=== PATIENT | male | born 1960 | race Caucasian/White ===

== ENCOUNTER 2018-03-22 15:19 | Emergency (ER) | payer MEDICARE, MEDICAID ==
[~2018-03-22] VITALS: Ht 188 cm; Wt 88.9 kg
[2018-03-22 15:52] VITALS: BP 160/109
[2018-03-22 16:24] LABS: BASOPHILS % (AUTO) 0.4 % (0-1); EOSINOPHILS # (AUTO) 0.1 X10'3 (0-0.9); EOSINOPHILS % (AUTO) 1.4 % (0-6); HEMOGLOBIN 14.7 g/dl (14.0-17.9); LYMPHOCYTES # (AUTO) 0.8 X10'3 (1.1-4.8); LYMPHOCYTES % (AUTO) 13.6 % (21-51); MEAN CORPUSCULAR HEMOGLOBIN 31.2 PG (27.0-31.0); MEAN CORPUSCULAR HGB CONC 34.2 g/dL (33.0-36.5); MEAN CORPUSCULAR VOLUME 91.2 FL (78-98); MEAN PLATELET VOLUME 6.9 FL (7.4-10.4); MONOCYTES # (AUTO) 0.4 X10'3 (0-0.9); MONOCYTES % (AUTO) 6.6 % (2-12); NEUTROPHILS # (AUTO) 4.8 X10'3 (1.8-7.7); PLATELET COUNT 272 X10'3 (140-440); RED BLOOD COUNT 4.71 X10'6 (4.70-6.10); RED CELL DISTRIBUTION WIDTH 13.7 % (11.5-14.5); WHITE BLOOD COUNT 6.2 X10'3 (4.5-11.0)
[2018-03-22 16:46] LABS: INR 0.9 INR; PARTIAL THROMBOPLASTIN TIME 28 SECONDS (22-32); PROTHROMBIN TIME 9.2 SECONDS (9.0-12.0)
[2018-03-22 16:51] LABS: ALANINE AMINOTRANSFERASE 46 U/L (12-78); ALBUMIN 4.1 G/DL (3.4-5.0); ALBUMIN/GLOBULIN RATIO 1.1 (1.1-1.5); ALKALINE PHOSPHATASE 126 IU/L (46-116); ANION GAP 14 (8-16); ASPARTATE AMINO TRANSFERASE 32 U/L (10-37); BILIRUBIN,TOTAL 0.4 MG/DL (0.1-1.0); BLOOD UREA NITROGEN 16 MG/DL (7-18); BUN/CREATININE RATIO 15.5 (5.4-32.0); CALCIUM 9.5 MG/DL (8.5-10.1); CHLORIDE 101 MMOL/L (99-107); CREATININE 1.03 MG/DL (0.60-1.10); GLUCOSE 63 MG/DL (70-104); POTASSIUM 4.2 MMOL/L (3.5-5.1); SODIUM 141 MMOL/L (135-145); TOTAL PROTEIN 7.7 G/DL (6.4-8.2); eGFR 74 ML/MIN
[2018-03-22] MEDS ORDERED: BENZ-16 PO (17:49)
== END 2018-03-22 18:35 | disposition home or self-care (01) ==
LOC: ER 15:19
DX: R05 Cough (principal); G89.29 Other chronic pain; Z56.0 Unemployment, unspecified; Z88.8 Allergy status to other drugs, medicaments and biological substances
CPT/HCPCS: 36415; 71045; 80053; 84484; 85025; 85610; 85730; 99284

== ENCOUNTER 2018-06-17 11:19 | Emergency (ER) | payer MEDICARE, MEDICAID ==
[~2018-06-17] VITALS: Ht 190.5 cm; Wt 88.6 kg
[2018-06-17 12:30] LABS: BASOPHILS % (AUTO) 0.5 % (0-1); EOSINOPHILS # (AUTO) 0.1 X10'3 (0-0.9); EOSINOPHILS % (AUTO) 2.2 % (0-6); HEMATOCRIT 37.9 % (42.0-52.0); HEMOGLOBIN 12.8 g/dl (14.0-17.9); LYMPHOCYTES # (AUTO) 0.8 X10'3 (1.1-4.8); LYMPHOCYTES % (AUTO) 19.5 % (21-51); MEAN CORPUSCULAR HEMOGLOBIN 30.9 PG (27.0-31.0); MEAN CORPUSCULAR HGB CONC 33.8 g/dL (33.0-36.5); MEAN CORPUSCULAR VOLUME 91.6 FL (78-98); MEAN PLATELET VOLUME 7.3 FL (7.4-10.4); MONOCYTES # (AUTO) 0.3 X10'3 (0-0.9); MONOCYTES % (AUTO) 6.5 % (2-12); NEUTROPHILS # (AUTO) 2.8 X10'3 (1.8-7.7); NEUTROPHILS % (AUTO) 71.3 % (42-75); PLATELET COUNT 257 X10'3 (140-440); RED BLOOD COUNT 4.14 X10'6 (4.70-6.10)
[2018-06-17 12:44] LABS: ALANINE AMINOTRANSFERASE 36 U/L (12-78); ALBUMIN 3.1 G/DL (3.4-5.0); ALBUMIN/GLOBULIN RATIO 1.1 (1.1-1.5); ALKALINE PHOSPHATASE 101 IU/L (46-116); ANION GAP 9 (8-16); ASPARTATE AMINO TRANSFERASE 26 U/L (10-37); BILIRUBIN,TOTAL 0.1 MG/DL (0.1-1.0); BLOOD UREA NITROGEN 11 MG/DL (7-18); BUN/CREATININE RATIO 9.5 (5.4-32.0); CALCIUM 8.6 MG/DL (8.5-10.1); CHLORIDE 105 MMOL/L (99-107); CREATININE 1.16 MG/DL (0.60-1.10); GLUCOSE 249 MG/DL (70-104); POTASSIUM 3.7 MMOL/L (3.5-5.1); SODIUM 140 MMOL/L (135-145); TOTAL CARBON DIOXIDE 25.8 MMOL/L (24-32); eGFR 64 ML/MIN
[2018-06-17 12:54] LABS: PARTIAL THROMBOPLASTIN TIME 27 SECONDS (22-32)
[2018-06-17 13:48] VITALS: BP 129/87
== END 2018-06-17 13:50 | disposition home or self-care (01) ==
LOC: ER 11:20
DX: R07.9 Chest pain, unspecified (principal); G89.29 Other chronic pain; Z88.8 Allergy status to other drugs, medicaments and biological substances; Z56.0 Unemployment, unspecified
CPT/HCPCS: 36415; 71045; 80053; 84484; 85025; 85610; 85730; 93005; 99284

== ENCOUNTER 2018-08-19 05:43 | Emergency (ER) | payer MEDICARE, MEDICAID ==
[~2018-08-19] VITALS: Ht 188 cm; Wt 86.4 kg
[~2018-08-19 05:43] MED LIST: ALBU8.5H8 IH
[2018-08-19] MEDS ORDERED: normal saline 1000ML IV soln IV ONE (06:15)
[2018-08-19] MEDS ORDERED: ipratropium/albuterol 3ml nebule NEB ONE (06:15)
[2018-08-19] MEDS ORDERED: methylPREDNISolone sod succ 125mg/2ml vial IV ONE (06:15)
[2018-08-19 06:48] LABS: BASOPHILS % (AUTO) 0.7 % (0-1); EOSINOPHILS # (AUTO) 0.1 X10'3 (0-0.9); EOSINOPHILS % (AUTO) 1.1 % (0-6); HEMATOCRIT 43.2 % (42.0-52.0); HEMOGLOBIN 14.5 g/dl (14.0-17.9); LYMPHOCYTES # (AUTO) 0.6 X10'3 (1.1-4.8); LYMPHOCYTES % (AUTO) 9.2 % (21-51); MEAN CORPUSCULAR HEMOGLOBIN 31.2 PG (27.0-31.0); MEAN CORPUSCULAR HGB CONC 33.5 g/dL (33.0-36.5); MEAN CORPUSCULAR VOLUME 92.9 FL (78-98); MEAN PLATELET VOLUME 7.2 FL (7.4-10.4); MONOCYTES # (AUTO) 0.3 X10'3 (0-0.9); MONOCYTES % (AUTO) 5.6 % (2-12); NEUTROPHILS % (AUTO) 83.4 % (42-75); PLATELET COUNT 267 X10'3 (140-440); RED BLOOD COUNT 4.65 X10'6 (4.70-6.10); RED CELL DISTRIBUTION WIDTH 13.7 % (11.5-14.5)
[2018-08-19 07:01] LABS: ALANINE AMINOTRANSFERASE 46 U/L (12-78); ALBUMIN 3.4 G/DL (3.4-5.0); ALKALINE PHOSPHATASE 139 IU/L (46-116); ANION GAP 10 (8-16); ASPARTATE AMINO TRANSFERASE 31 U/L (10-37); BILIRUBIN,TOTAL 0.8 MG/DL (0.1-1.0); BLOOD UREA NITROGEN 13 MG/DL (7-18); BUN/CREATININE RATIO 11.2 (5.4-32.0); CALCIUM 8.8 MG/DL (8.5-10.1); CHLORIDE 104 MMOL/L (99-107); CREATININE 1.16 MG/DL (0.60-1.10); GLUCOSE 146 MG/DL (70-104); POTASSIUM 3.8 MMOL/L (3.5-5.1); SODIUM 141 MMOL/L (135-145); TOTAL CARBON DIOXIDE 26.8 MMOL/L (24-32); TOTAL PROTEIN 6.9 G/DL (6.4-8.2); eGFR 64 ML/MIN
[2018-08-19 07:09] LABS: MAGNESIUM 1.8 MG/DL (1.5-2.4)
[2018-08-19 07:10] LABS: TROPONIN I < 0.04 NG/ML (0.0-0.05)
[2018-08-19 07:48] LABS: D-DIMER 0.75 MG/L FEU (0-0.50)
[2018-08-19 07:48] LABS: CLARITY,URINE CLEAR (Clear); COLOR,URINE YELLOW (Yellow); GLUCOSE, URINE NEGATIVE (Neg); KETONES,URINE 15 mg/dl (Neg); LEUKOCYTE ESTERASE ,URINE NEGATIVE (Neg); NITRITES, URINE NEGATIVE (Neg); OCCULT BLOOD,URINE NEGATIVE (Neg); PH,URINE 5.5 (4.8-8.0); PROTEIN,URINE NEGATIVE (Neg); UROBILINOGEN,URINE 0.2 E.U/dL (0.2-1.0)
[2018-08-19 07:51] LABS: UA COLLECTION TYPE CLN CATCH MIDSTREAM
[2018-08-19] MEDS ORDERED: AZIT-63 PO (07:59)
[2018-08-19] MEDS ORDERED: PRED20TA PO (07:59)
[2018-08-19] MEDS ORDERED: ibuprofen tablet 400 MG TABLET PO ONE (08:05)
[2018-08-19 08:22] VITALS: BP 153/101
== END 2018-08-19 08:35 | disposition home or self-care (01) ==
LOC: ER 05:44
DX: J40 Bronchitis, not specified as acute or chronic (principal); G89.29 Other chronic pain; Z87.891 Personal history of nicotine dependence; Z56.0 Unemployment, unspecified; Z88.8 Allergy status to other drugs, medicaments and biological substances; Z79.2 Long term (current) use of antibiotics; Z79.899 Other long term (current) drug therapy
CPT/HCPCS: 36415; 71045; 80053; 81003; 83735; 83880; 84145; 84484; 85025; 85379; 85610; 93005; 94640; 94760; 96374; 99284; J2930; J7030

== ENCOUNTER 2018-08-31 13:06 | Emergency (ER) | payer MEDICARE, MEDICAID ==
[~2018-08-31] VITALS: Ht 188 cm; Wt 87.3 kg
[~2018-08-31 13:06] MED LIST changes: +AZIT-63 PO; +PRED20TA PO
[2018-08-31 13:07] VITALS: BP 102/84
[2018-08-31] MEDS ORDERED: ipratropium/albuterol 3ml nebule NEB ONE (13:15)
[2018-08-31] MEDS ORDERED: PRED20TA PO (13:44)
[2018-08-31] MEDS ORDERED: dexamethasone 4mg tablet PO ONE (13:45)
--- NOTE | 2018-08-31 13:45 | NUR ---
RT IN ROOM ADMINSITERING THE BREATHING TREATENT.WILL CONT TO MONITOR.
== END 2018-08-31 14:01 | disposition home or self-care (01) ==
LOC: ER 13:06
DX: J44.9 Chronic obstructive pulmonary disease, unspecified (principal); G89.29 Other chronic pain; F10.99 Alcohol use, unspecified with unspecified alcohol-induced disorder; Z60.2 Problems related to living alone; Z56.0 Unemployment, unspecified; Z88.8 Allergy status to other drugs, medicaments and biological substances; Z79.899 Other long term (current) drug therapy; Y90.9 Presence of alcohol in blood, level not specified
CPT/HCPCS: 93005; 94640; 94760; 99283; J8540

== ENCOUNTER 2018-09-18 06:59 | Inpatient (IN) | payer MEDICARE, MEDICAID ==
[~2018-09-18] VITALS: Ht 190.5 cm; Wt 85.0 kg
[~2018-09-18 06:59] MED LIST changes: -AZIT-63 PO
[2018-09-18 07:44] LABS: BASOPHILS % (AUTO) 0.2 % (0-1); EOSINOPHILS % (AUTO) 0.5 % (0-6); HEMATOCRIT 39.3 % (42.0-52.0); HEMOGLOBIN 13.4 g/dl (14.0-17.9); LYMPHOCYTES # (AUTO) 0.6 X10'3 (1.1-4.8); LYMPHOCYTES % (AUTO) 7.5 % (21-51); MEAN CORPUSCULAR HEMOGLOBIN 31.3 PG (27.0-31.0); MEAN CORPUSCULAR HGB CONC 34.1 g/dL (33.0-36.5); MEAN CORPUSCULAR VOLUME 91.7 FL (78-98); MONOCYTES # (AUTO) 0.5 X10'3 (0-0.9); NEUTROPHILS # (AUTO) 6.4 X10'3 (1.8-7.7); NEUTROPHILS % (AUTO) 84.8 % (42-75); PLATELET COUNT 225 X10'3 (140-440); RED BLOOD COUNT 4.29 X10'6 (4.70-6.10); RED CELL DISTRIBUTION WIDTH 13.8 % (11.5-14.5); WHITE BLOOD COUNT 7.5 X10'3 (4.5-11.0)
[2018-09-18 08:01] LABS: PARTIAL THROMBOPLASTIN TIME 26 SECONDS (22-32)
[2018-09-18 08:24] LABS: ALANINE AMINOTRANSFERASE 37 U/L (12-78); ALBUMIN 3.2 G/DL (3.4-5.0); ALKALINE PHOSPHATASE 100 IU/L (46-116); ANION GAP 16 (8-16); ASPARTATE AMINO TRANSFERASE 17 U/L (10-37); BILIRUBIN,TOTAL 0.3 MG/DL (0.1-1.0); BLOOD UREA NITROGEN 12 MG/DL (7-18); BUN/CREATININE RATIO 12.8 (5.4-32.0); CALCIUM 8.8 MG/DL (8.5-10.1); CHLORIDE 105 MMOL/L (99-107); CREATININE 0.94 MG/DL (0.60-1.10); GLUCOSE 96 MG/DL (70-104); POTASSIUM 4.2 MMOL/L (3.5-5.1); SODIUM 142 MMOL/L (135-145); TOTAL CARBON DIOXIDE 20.7 MMOL/L (24-32); TOTAL PROTEIN 6.3 G/DL (6.4-8.2); eGFR 82 ML/MIN
[2018-09-18] MEDS ORDERED: iohexol 350MG/ML 100ml bottle IV ONE (08:27)
[2018-09-18] MEDS ORDERED: CefTRIAXone 2gm/D5W 50ml 50 ML IV ONE (11:40)
--- NOTE | 2018-09-18 11:42 | NUR ---
PT AMBULATED TO BR WITH ASST.
[2018-09-18] MEDS ORDERED: diatr meglu/diatrizoate 30ml oral sol.-(3 dose) bottle PO ONE (11:45)
[2018-09-18] MEDS ORDERED: ESOMEPRAZOLE 40 MG VIAL IV ONE (11:45)
--- NOTE | 2018-09-18 12:01 | NUR ---
pt. off to x-ray for esophagram via w/c
[2018-09-18 12:18] LABS: CLARITY,URINE CLEAR (Clear); COLOR,URINE YELLOW (Yellow); GLUCOSE, URINE NEGATIVE (Neg); KETONES,URINE 40 mg/dl (Neg); LEUKOCYTE ESTERASE ,URINE NEGATIVE (Neg); NITRITES, URINE NEGATIVE (Neg); OCCULT BLOOD,URINE NEGATIVE (Neg); PROTEIN,URINE NEGATIVE (Neg); UROBILINOGEN,URINE 0.2 E.U/dL (0.2-1.0)
[2018-09-18 12:20] LABS: UA COLLECTION TYPE CLN CATCH MIDSTREAM
--- NOTE | 2018-09-18 12:25 | NUR ---
PT BACK FROM BR TOLERATED WELL WITHOUT ASST. URINE SENT FOR UA
[2018-09-18] MEDS: pantoprazole 40MG/NS 100ML BAG 100 ML IV SCH ×3 (12:54→21:42)
[2018-09-18] MEDS ORDERED: ondansetron/PF 4mg/2ml inj IV ONE (13:05)
[2018-09-18] MEDS ORDERED: morphine 4 MG/ML inj SYRINge IV ONE (13:05)
[2018-09-18] MEDS ORDERED: normal saline 1000ml 1,000 ML IV ONE (13:10)
[2018-09-18] MEDS ORDERED: magnesium 4gm in 100ml NS 100 ML IV PRN (14:00)
[2018-09-18] MEDS ORDERED: barium sulfate 450ml oral suspension ONE (14:00)
[2018-09-18] MEDS ORDERED: potassium CL 10mEq/100ml bag 100 ML IV PRN ×2 (14:00)
[2018-09-18] MEDS ORDERED: ipratropium/albuterol 3ml nebule NEB PRN (14:00)
[2018-09-18] MEDS ORDERED: magnesium 2GM in 50ml NS 50 ML IV PRN (14:00)
[2018-09-18] MEDS ORDERED: ondansetron/PF 4mg/2ml inj IV PRN (14:00)
[2018-09-18] MEDS: K and/or MAG REPLACEMENT MC SCH (14:00)
[2018-09-18] MEDS ORDERED: bisacodyl 10mg suppository rectal RC PRN (14:00)
[2018-09-18] MEDS ORDERED: acetaminophen 650mg rectal suppository RC PRN (14:00)
[2018-09-18] MEDS ORDERED: potassium Cl 20 mEq SR tablet PO PRN ×2 (14:00)
[2018-09-18] MEDS ORDERED: magnesium Cl slow-release 64mg tablet PO PRN (14:00)
[2018-09-18] MEDS ORDERED: diatrozoate meglu/diatrozoate sod (37% iodine) 120ML oral solution ONE (14:00)
[2018-09-18] MEDS ORDERED: diphenhydrAMINE 50 mg/ml inj IV PRN (14:00)
[2018-09-18 14:40] LABS: HEMOGLOBIN A1C 5.5 % (4.5-6.2)
[2018-09-18] MEDS: piperacillin/tazo 3.375gm/50ml 50 ML IV SCH ×2 (14:57→16:00)
[2018-09-18] MEDS: dextrose 5%-normal saline 1,000 ML IV SCH ×2 (14:57→21:43)
[2018-09-18] MEDS ORDERED: NO HOME MEDS (15:32)
--- NOTE | 2018-09-18 16:30 | NUR ---
Pt arrived from ER. Pt on Protonix and Zosyn gtt. Pt has no complaint. Pt assisted in getting undressed for 2 RN skin check. Pt has visible shaking, but per his report, he does not drink ETOH. Pt pants and shoes placed in the cabinet.
--- NOTE | 2018-09-18 18:30 | NUR ---
Patient in room PCU 3016. I have received report from Art RN and had the opportunity to ask questions and assume patient care.
[2018-09-18 19:00] VITALS: BP 130/92
[2018-09-18] MEDS: morphine 2 MG/ML inj. syringe IV PRN (21:42)
[2018-09-18 23:00] VITALS: BP 128/82
[2018-09-19] VITALS (12 sets, daily range): BP systolic 109–146; BP diastolic 80–90
[2018-09-19] MEDS: pantoprazole 40MG/NS 100ML BAG 100 ML IV SCH ×4 (01:00→16:00)
[2018-09-19] MEDS: dextrose 5%-normal saline 1,000 ML IV SCH ×3 (06:00→22:00)
--- NOTE | 2018-09-19 06:17 | NUR ---
Problems reprioritized. Patient report given, questions answered & plan of care reviewed with Jen RICHEY.
--- NOTE | 2018-09-19 06:33 | NUR ---
Patient in room PCU 3016. I have received report from KAIDEN Hahn and had the opportunity to ask questions and assume patient care.
[2018-09-19 07:03] LABS: BASOPHILS % (AUTO) 0.2 % (0-1); EOSINOPHILS # (AUTO) 0.1 X10'3 (0-0.9); EOSINOPHILS % (AUTO) 2.2 % (0-6); HEMATOCRIT 37.2 % (42.0-52.0); HEMOGLOBIN 12.6 g/dl (14.0-17.9); LYMPHOCYTES # (AUTO) 0.5 X10'3 (1.1-4.8); LYMPHOCYTES % (AUTO) 9.4 % (21-51); MEAN CORPUSCULAR HEMOGLOBIN 31.7 PG (27.0-31.0); MEAN CORPUSCULAR VOLUME 93.4 FL (78-98); MEAN PLATELET VOLUME 7.3 FL (7.4-10.4); MONOCYTES # (AUTO) 0.5 X10'3 (0-0.9); NEUTROPHILS # (AUTO) 4.5 X10'3 (1.8-7.7); NEUTROPHILS % (AUTO) 80.2 % (42-75); PLATELET COUNT 178 X10'3 (140-440); RED BLOOD COUNT 3.98 X10'6 (4.70-6.10); RED CELL DISTRIBUTION WIDTH 13.8 % (11.5-14.5); WHITE BLOOD COUNT 5.7 X10'3 (4.5-11.0)
[2018-09-19 07:14] LABS: ALANINE AMINOTRANSFERASE 28 U/L (12-78); ALBUMIN 2.5 G/DL (3.4-5.0); ALBUMIN/GLOBULIN RATIO 0.9 (1.1-1.5); ALKALINE PHOSPHATASE 87 IU/L (46-116); ANION GAP 8 (8-16); ASPARTATE AMINO TRANSFERASE 13 U/L (10-37); BILIRUBIN,TOTAL 0.6 MG/DL (0.1-1.0); BLOOD UREA NITROGEN 7 MG/DL (7-18); BUN/CREATININE RATIO 6.9 (5.4-32.0); CALCIUM 7.9 MG/DL (8.5-10.1); CHLORIDE 109 MMOL/L (99-107); CHOL/HDL RATIO 1.9 (0.00-4.99); CHOLESTEROL 153 MG/DL (0-200); CREATININE 1.01 MG/DL (0.60-1.10); GLUCOSE 132 MG/DL (70-104); HDL CHOLESTEROL 80 MG/DL (35-60); LDL CHOLESTEROL 66 MG/DL (50-100); MAGNESIUM 1.7 MG/DL (1.5-2.4); PHOSPHORUS 3.7 MG/DL (2.3-4.5); SODIUM 145 MMOL/L (135-145); TOTAL CARBON DIOXIDE 27.6 MMOL/L (24-32); TOTAL PROTEIN 5.2 G/DL (6.4-8.2); TRIGLYCERIDES 50 MG/DL (20-135); eGFR 76 ML/MIN
[2018-09-19] MEDS: piperacillin/tazo 3.375gm/50ml 50 ML IV SCH ×3 (07:33→17:49)
[2018-09-19] MEDS: K and/or MAG REPLACEMENT MC SCH (08:00)
[2018-09-19] MEDS: morphine 2 MG/ML inj. syringe IV PRN ×2 (10:33→20:54)
--- NOTE | 2018-09-19 11:03 | NUR ---
Phoned GI lab spoke with Joann. She stated that she had not heard from Dr Acevedo yet for EGD schedule. She states that it will be this afternoon.
--- NOTE | 2018-09-19 15:19 | NUR ---
[facility] lab picked up pt for EGD @ 9508
[2018-09-19] MEDS ORDERED: fentaNYL/PF 50MCG/1 ML 2ML syringe ONE (16:09)
[2018-09-19] MEDS ORDERED: MIDAZolam 5mg/5ml vial ONE (16:09)
--- NOTE | 2018-09-19 18:00 | NUR ---
Problems reprioritized. Patient report given, questions answered & plan of care reviewed with KAIDEN Hahn .
--- NOTE | 2018-09-19 18:25 | NUR ---
Patient in room PCU 3016. I have received report from Jen RICHEY and had the opportunity to ask questions and assume patient care.
[2018-09-19] MEDS ORDERED: LIDOcaine Viscous 15ml cup ONE (19:25)
[2018-09-19] MEDS ORDERED: pantoprazole 40mg Tablet.DR PO ONE (19:45)
[2018-09-19] MEDS: lactobacillus rhamnosus 10,000 MMU CELLS/CAPSULE PO SCH (20:54)
[2018-09-20 03:00] VITALS: BP 147/94
[2018-09-20 05:51] LABS: BASOPHILS % (AUTO) 0.4 % (0-1); EOSINOPHILS # (AUTO) 0.2 X10'3 (0-0.9); EOSINOPHILS % (AUTO) 4.3 % (0-6); HEMOGLOBIN 12.4 g/dl (14.0-17.9); LYMPHOCYTES # (AUTO) 0.8 X10'3 (1.1-4.8); LYMPHOCYTES % (AUTO) 18.3 % (21-51); MEAN CORPUSCULAR HEMOGLOBIN 31.3 PG (27.0-31.0); MEAN CORPUSCULAR HGB CONC 33.5 g/dL (33.0-36.5); MEAN CORPUSCULAR VOLUME 93.4 FL (78-98); MONOCYTES # (AUTO) 0.3 X10'3 (0-0.9); MONOCYTES % (AUTO) 7.8 % (2-12); NEUTROPHILS % (AUTO) 69.2 % (42-75); PLATELET COUNT 172 X10'3 (140-440); RED BLOOD COUNT 3.96 X10'6 (4.70-6.10); RED CELL DISTRIBUTION WIDTH 13.8 % (11.5-14.5); WHITE BLOOD COUNT 4.4 X10'3 (4.5-11.0)
[2018-09-20 06:00] VITALS: BP 133/88
[2018-09-20] MEDS: dextrose 5%-normal saline 1,000 ML IV SCH ×2 (06:00→14:00)
[2018-09-20 06:07] LABS: ALANINE AMINOTRANSFERASE 25 U/L (12-78); ALBUMIN 2.5 G/DL (3.4-5.0); ALBUMIN/GLOBULIN RATIO 0.9 (1.1-1.5); ALKALINE PHOSPHATASE 79 IU/L (46-116); ANION GAP 4 (8-16); ASPARTATE AMINO TRANSFERASE 2 U/L (10-37); BILIRUBIN,TOTAL 0.6 MG/DL (0.1-1.0); BLOOD UREA NITROGEN 4 MG/DL (7-18); BUN/CREATININE RATIO 3.6 (5.4-32.0); CALCIUM 8.2 MG/DL (8.5-10.1); CHLORIDE 110 MMOL/L (99-107); CREATININE 1.12 MG/DL (0.60-1.10); GLUCOSE 101 MG/DL (70-104); MAGNESIUM 1.8 MG/DL (1.5-2.4); PHOSPHORUS 3.8 MG/DL (2.3-4.5); POTASSIUM 3.9 MMOL/L (3.5-5.1); SODIUM 145 MMOL/L (135-145); TOTAL CARBON DIOXIDE 30.7 MMOL/L (24-32); TOTAL PROTEIN 5.2 G/DL (6.4-8.2); eGFR 67 ML/MIN
--- NOTE | 2018-09-20 06:15 | NUR ---
Problems reprioritized. Patient report given, questions answered & plan of care reviewed with Jen RICHEY.
--- NOTE | 2018-09-20 06:21 | NUR ---
Patient in room PCU 3016. I have received report from KAIDEN Hahn and had the opportunity to ask questions and assume patient care. Pt resting comfortably
[2018-09-20] MEDS: pantoprazole 40mg Tablet.DR PO SCH ×2 (06:51→16:13)
[2018-09-20] MEDS: piperacillin/tazo 3.375gm/50ml 50 ML IV SCH ×3 (07:39→16:34)
[2018-09-20] MEDS: lactobacillus rhamnosus 10,000 MMU CELLS/CAPSULE PO SCH ×2 (07:39→21:34)
[2018-09-20] MEDS: K and/or MAG REPLACEMENT MC SCH (08:00)
--- NOTE | 2018-09-20 09:45 | NUR ---
Ramiro Acosta rm [id number] advancing and tolerating diet should we discontinue IV Dextrose @ 125/hr, and needs PRN po analgesia KAIDEN Li ext [phone]
[2018-09-20 11:00] VITALS: BP 110/79
--- NOTE | 2018-09-20 14:45 | NUR ---
Page sent to Dr Baird regarding Dextrose 5% in NS @ 125ml/hr. Pt is tolerating and advancing diet
[2018-09-20 15:00] VITALS: BP 118/78
[2018-09-20 18:00] VITALS: BP 139/77
--- NOTE | 2018-09-20 18:16 | NUR ---
Problems reprioritized. Patient report given, questions answered & plan of care reviewed with KAIDEN Castillo .
--- NOTE | 2018-09-20 18:33 | NUR ---
Patient in room PCU 3016. I have received report from Jasmin Mancera and had the opportunity to ask questions and assume patient care.
[2018-09-20] MEDS: morphine 2 MG/ML inj. syringe IV PRN (21:41)
[2018-09-21] VITALS (7 sets, daily range): BP systolic 128–144; BP diastolic 76–95
[2018-09-21] MEDS: piperacillin/tazo 3.375gm/50ml 50 ML IV SCH ×3 (02:44→17:54)
[2018-09-21] MEDS: dextrose 5%-normal saline 1,000 ML IV SCH ×2 (02:44→11:50)
[2018-09-21] MEDS ORDERED: cyclobenzaprine 10mg tablet PO ONE (03:10)
[2018-09-21 05:23] LABS: BASOPHILS % (AUTO) 0.9 % (0-1); EOSINOPHILS # (AUTO) 0.3 X10'3 (0-0.9); EOSINOPHILS % (AUTO) 6.2 % (0-6); HEMATOCRIT 34.1 % (42.0-52.0); HEMOGLOBIN 11.6 g/dl (14.0-17.9); LYMPHOCYTES # (AUTO) 0.9 X10'3 (1.1-4.8); LYMPHOCYTES % (AUTO) 22.9 % (21-51); MEAN CORPUSCULAR HEMOGLOBIN 31.8 PG (27.0-31.0); MEAN CORPUSCULAR HGB CONC 34.2 g/dL (33.0-36.5); MEAN CORPUSCULAR VOLUME 93.1 FL (78-98); MEAN PLATELET VOLUME 7.5 FL (7.4-10.4); MONOCYTES # (AUTO) 0.5 X10'3 (0-0.9); MONOCYTES % (AUTO) 12.5 % (2-12); NEUTROPHILS # (AUTO) 2.3 X10'3 (1.8-7.7); NEUTROPHILS % (AUTO) 57.5 % (42-75); PLATELET COUNT 169 X10'3 (140-440); RED BLOOD COUNT 3.66 X10'6 (4.70-6.10); RED CELL DISTRIBUTION WIDTH 13.5 % (11.5-14.5); WHITE BLOOD COUNT 4.1 X10'3 (4.5-11.0)
[2018-09-21 05:36] LABS: ALANINE AMINOTRANSFERASE 28 U/L (12-78); ALBUMIN 2.4 G/DL (3.4-5.0); ALBUMIN/GLOBULIN RATIO 0.9 (1.1-1.5); ALKALINE PHOSPHATASE 72 IU/L (46-116); ANION GAP 6 (8-16); ASPARTATE AMINO TRANSFERASE 18 U/L (10-37); BILIRUBIN,TOTAL 0.4 MG/DL (0.1-1.0); BLOOD UREA NITROGEN 3 MG/DL (7-18); BUN/CREATININE RATIO 2.8 (5.4-32.0); CALCIUM 8.2 MG/DL (8.5-10.1); CHLORIDE 110 MMOL/L (99-107); CREATININE 1.07 MG/DL (0.60-1.10); GLUCOSE 99 MG/DL (70-104); MAGNESIUM 1.8 MG/DL (1.5-2.4); POTASSIUM 3.7 MMOL/L (3.5-5.1); SODIUM 146 MMOL/L (135-145); TOTAL CARBON DIOXIDE 30.5 MMOL/L (24-32); TOTAL PROTEIN 5.1 G/DL (6.4-8.2); eGFR 71 ML/MIN
--- NOTE | 2018-09-21 06:30 | NUR ---
Problems reprioritized. Patient report given, questions answered & plan of care reviewed with Tomás RICHEY. Addendum: 09/21/18 at 0649 by Anna Gonzalez RN Actually, report given to Jasmin England RN
[2018-09-21] MEDS: lactobacillus rhamnosus 10,000 MMU CELLS/CAPSULE PO SCH ×2 (07:22→19:54)
[2018-09-21] MEDS: pantoprazole 40mg Tablet.DR PO SCH ×2 (07:22→17:54)
[2018-09-21] MEDS: heparin, porcine 5000 units/ml vial SQ SCH ×2 (07:23→19:55)
[2018-09-21] MEDS: K and/or MAG REPLACEMENT MC SCH (07:23)
--- NOTE | 2018-09-21 18:21 | NUR ---
Problems reprioritized. Patient report given, questions answered & plan of care reviewed with Lauren RN .
[2018-09-21] MEDS: acetaminophen 325mg tablet PO PRN (19:53)
[2018-09-22] MEDS: dextrose 5%-normal saline 1,000 ML IV SCH ×2 (01:10→04:05)
[2018-09-22 02:20] VITALS: BP 166/96
[2018-09-22] MEDS: acetaminophen 325mg tablet PO PRN (02:23)
[2018-09-22 04:57] LABS: BASOPHILS % (AUTO) 1.6 % (0-1); EOSINOPHILS # (AUTO) 0.3 X10'3 (0-0.9); EOSINOPHILS % (AUTO) 8.2 % (0-6); HEMATOCRIT 34.9 % (42.0-52.0); HEMOGLOBIN 11.9 g/dl (14.0-17.9); LYMPHOCYTES # (AUTO) 0.9 X10'3 (1.1-4.8); LYMPHOCYTES % (AUTO) 28.8 % (21-51); MEAN CORPUSCULAR HEMOGLOBIN 31.8 PG (27.0-31.0); MEAN CORPUSCULAR VOLUME 93.5 FL (78-98); MEAN PLATELET VOLUME 7.2 FL (7.4-10.4); MONOCYTES # (AUTO) 0.5 X10'3 (0-0.9); NEUTROPHILS # (AUTO) 1.4 X10'3 (1.8-7.7); NEUTROPHILS % (AUTO) 46.4 % (42-75); PLATELET COUNT 178 X10'3 (140-440); RED BLOOD COUNT 3.74 X10'6 (4.70-6.10); RED CELL DISTRIBUTION WIDTH 13.6 % (11.5-14.5); WHITE BLOOD COUNT 3.1 X10'3 (4.5-11.0)
[2018-09-22 05:27] LABS: ALANINE AMINOTRANSFERASE 30 U/L (12-78); ALBUMIN 2.4 G/DL (3.4-5.0); ALBUMIN/GLOBULIN RATIO 0.9 (1.1-1.5); ALKALINE PHOSPHATASE 74 IU/L (46-116); ANION GAP 6 (8-16); ASPARTATE AMINO TRANSFERASE 21 U/L (10-37); BILIRUBIN,TOTAL 0.4 MG/DL (0.1-1.0); BLOOD UREA NITROGEN 2 MG/DL (7-18); BUN/CREATININE RATIO 1.7 (5.4-32.0); CALCIUM 8.4 MG/DL (8.5-10.1); CHLORIDE 111 MMOL/L (99-107); CREATININE 1.15 MG/DL (0.60-1.10); GLUCOSE 108 MG/DL (70-104); MAGNESIUM 1.7 MG/DL (1.5-2.4); PHOSPHORUS 4.7 MG/DL (2.3-4.5); POTASSIUM 3.5 MMOL/L (3.5-5.1); SODIUM 145 MMOL/L (135-145); TOTAL CARBON DIOXIDE 27.6 MMOL/L (24-32); TOTAL PROTEIN 5.2 G/DL (6.4-8.2); eGFR 65 ML/MIN
[2018-09-22 06:48] LABS: TOTAL CELLS COUNTED 100
[2018-09-22 06:49] LABS: PLATELET ESTIMATE NORMAL
[2018-09-22] MEDS: K and/or MAG REPLACEMENT MC SCH (06:59)
[2018-09-22] MEDS: lactobacillus rhamnosus 10,000 MMU CELLS/CAPSULE PO SCH (07:56)
[2018-09-22] MEDS: heparin, porcine 5000 units/ml vial SQ SCH (07:56)
[2018-09-22] MEDS: pantoprazole 40mg Tablet.DR PO SCH (07:56)
[2018-09-22 08:00] VITALS: BP 158/95
--- NOTE | 2018-09-22 08:14 | NUR ---
Elevated HR 160 while sleeping. Pt. woke and is alert and oriented and in no apparent distress and denies pain. HR is 145. Elevated rate in the 130's while eating breakfast and Pt. ambulates spontaneously with no changes in HR.
--- NOTE | 2018-09-22 08:24 | NUR ---
Page to Brie MCCABE PAGER ID: [phone] MESSAGE: Pt. Karla Rm [id number] elevated HR at rest. No discomfort or pain noted resolved to ST 140-130 at rest and with ambulation of 300+ ft. Monitoring Pt. Lori RICHEY [phone]
[2018-09-22] MEDS ORDERED: PANT40TA4 PO (10:08)
[2018-09-22] MEDS ORDERED: ALBU18HF2 IH (10:08)
[2018-09-22] MEDS ORDERED: BUDE10.22 INH (10:08)
--- NOTE | 2018-09-22 11:25 | NUR ---
Discharge Home Pt. is picked up by his Mother. Discharge instruction are provided in written form. Teaching handout provided for SOB and Esophagitis. All clothes are worn home by Pt. New prescriptions are called to pharmacy and Family member is aware that [facility] in [place] is the correct location to chart picker prescriptions today. Discharged in stable condition, steady on his feet, encouraged to do easy walking for exercise.
== END 2018-09-22 11:25 | disposition home or self-care (01) | DRG 381 ==
LOC: ER 07:00 → PCU 3S 16:22 → CMPBEDREQ 09-19 19:44
PROVIDERS: ADMIT Family Medicine; ATTEND Hospitalist
PROC: B32T1ZZ Computerized Tomography (CT Scan) of Left Pulmonary Artery using Low Osmolar Contrast (ICD-10-PCS; 2018-09-18)
PROC: B3201ZZ Computerized Tomography (CT Scan) of Thoracic Aorta using Low Osmolar Contrast (ICD-10-PCS; 2018-09-18)
PROC: B32S1ZZ Computerized Tomography (CT Scan) of Right Pulmonary Artery using Low Osmolar Contrast (ICD-10-PCS; 2018-09-18)
PROC: BD11YZZ Fluoroscopy of Esophagus using Other Contrast (ICD-10-PCS; 2018-09-18)
PROC: 0DB58ZX Excision of Esophagus, Via Natural or Artificial Opening Endoscopic, Diagnostic (ICD-10-PCS; principal; 2018-09-19)
PROC: 0DB68ZX Excision of Stomach, Via Natural or Artificial Opening Endoscopic, Diagnostic (ICD-10-PCS; 2018-09-19)
DX: K22.70 Barrett's esophagus without dysplasia (principal); E44.0 Moderate protein-calorie malnutrition; F20.9 Schizophrenia, unspecified; J44.9 Chronic obstructive pulmonary disease, unspecified; K26.9 Duodenal ulcer, unspecified as acute or chronic, without hemorrhage or perforation; K20.9 Esophagitis, unspecified; Z60.2 Problems related to living alone; K29.70 Gastritis, unspecified, without bleeding; K44.9 Diaphragmatic hernia without obstruction or gangrene; G89.29 Other chronic pain; M54.9 Dorsalgia, unspecified; R00.0 Tachycardia, unspecified; Z87.891 Personal history of nicotine dependence; Z68.23 Body mass index [BMI] 23.0-23.9, adult; Z88.8 Allergy status to other drugs, medicaments and biological substances; Z88.2 Allergy status to sulfonamides; Z89.422 Acquired absence of other left toe(s); Z81.1 Family history of alcohol abuse and dependence
CPT/HCPCS: 36415; 43239; 71045; 71275; 74220; 80053; 80061; 81003; 83036; 83605; 83735; 83880; 84100; 84484; 85025; 85610; 85730; 86885; 86900; 86901; 87040; 87081; 88305; 88312; 88342; 93005; 94760; 96361; 96365; 96368; 96375; 99152; 99285; A4620; C9113; G0378; J0696; J1644; J2250; J2270; J2405; J2543; J3010; J7040; J7042; Q9963; Q9967

== ENCOUNTER 2018-09-25 12:51 | Emergency (ER) | payer MEDICARE, MEDICAID ==
[~2018-09-25] VITALS: Ht 190.5 cm; Wt 85.0 kg
[~2018-09-25 12:51] MED LIST changes: +ALBU18HF2 IH; -ALBU8.5H8 IH; +BUDE10.22 INH; +PANT40TA4 PO; -PRED20TA PO
[2018-09-25] MEDS ORDERED: sucralfate 1gm/10ml UD suspension PO ONE (13:10)
[2018-09-25] MEDS ORDERED: mag hydrox/Alum hydrox/simeth 30ml oral suspension PO ONE (13:10)
[2018-09-25] MEDS ORDERED: LIDOcaine Viscous 15ml cup MM ONE (13:10)
[2018-09-25 13:28] LABS: BASOPHILS % (AUTO) 0.4 % (0-1); EOSINOPHILS # (AUTO) 0.1 X10'3 (0-0.9); EOSINOPHILS % (AUTO) 2.8 % (0-6); HEMATOCRIT 36.2 % (42.0-52.0); HEMOGLOBIN 12.1 g/dl (14.0-17.9); LYMPHOCYTES # (AUTO) 0.9 X10'3 (1.1-4.8); LYMPHOCYTES % (AUTO) 27.5 % (21-51); MEAN CORPUSCULAR HEMOGLOBIN 30.9 PG (27.0-31.0); MEAN CORPUSCULAR HGB CONC 33.3 g/dL (33.0-36.5); MEAN CORPUSCULAR VOLUME 92.7 FL (78-98); MEAN PLATELET VOLUME 6.6 FL (7.4-10.4); MONOCYTES # (AUTO) 0.3 X10'3 (0-0.9); MONOCYTES % (AUTO) 8.3 % (2-12); NEUTROPHILS # (AUTO) 2.1 X10'3 (1.8-7.7); PLATELET COUNT 227 X10'3 (140-440); RED CELL DISTRIBUTION WIDTH 13.8 % (11.5-14.5); WHITE BLOOD COUNT 3.4 X10'3 (4.5-11.0)
[2018-09-25 13:40] LABS: ALANINE AMINOTRANSFERASE 35 U/L (12-78); ALBUMIN 2.9 G/DL (3.4-5.0); ALBUMIN/GLOBULIN RATIO 0.9 (1.1-1.5); ALKALINE PHOSPHATASE 87 IU/L (46-116); ANION GAP 11 (8-16); ASPARTATE AMINO TRANSFERASE 23 U/L (10-37); BILIRUBIN,TOTAL 0.1 MG/DL (0.1-1.0); BLOOD UREA NITROGEN 9 MG/DL (7-18); BUN/CREATININE RATIO 7.7 (5.4-32.0); CALCIUM 8.5 MG/DL (8.5-10.1); CHLORIDE 110 MMOL/L (99-107); CREATININE 1.17 MG/DL (0.60-1.10); GLUCOSE 116 MG/DL (70-104); POTASSIUM 4.2 MMOL/L (3.5-5.1); SODIUM 146 MMOL/L (135-145); TOTAL CARBON DIOXIDE 24.6 MMOL/L (24-32); eGFR 64 ML/MIN
[2018-09-25 13:44] LABS: TROPONIN I < 0.04 NG/ML (0.0-0.05)
[2018-09-25] MEDS ORDERED: SUCR1TAB34 PO (13:57)
[2018-09-25] MEDS ORDERED: ALBU8.5H8 IH (13:57)
[2018-09-25] MEDS ORDERED: ipratropium/albuterol 3ml nebule NEB ONE (14:00)
[2018-09-25 14:36] VITALS: BP 152/93
== END 2018-09-25 14:39 | disposition home or self-care (01) ==
LOC: ER 12:51
DX: R06.02 Shortness of breath (principal); K22.8 Other specified diseases of esophagus; J44.9 Chronic obstructive pulmonary disease, unspecified; G89.29 Other chronic pain; F10.99 Alcohol use, unspecified with unspecified alcohol-induced disorder; Z60.2 Problems related to living alone; Z56.0 Unemployment, unspecified; Z88.8 Allergy status to other drugs, medicaments and biological substances; Z88.2 Allergy status to sulfonamides; Z79.899 Other long term (current) drug therapy; Y90.9 Presence of alcohol in blood, level not specified
CPT/HCPCS: 36415; 71045; 80053; 84484; 85025; 93005; 94640; 94760; 99284

== ENCOUNTER 2018-09-27 13:07 | Emergency (ER) | payer MEDICARE, MEDICAID ==
[~2018-09-27] VITALS: Ht 190.5 cm; Wt 86.4 kg
[~2018-09-27 13:07] MED LIST changes: +ALBU8.5H8 IH; +SUCR1TAB34 PO
[2018-09-27 13:58] LABS: BASOPHILS % (AUTO) 0.9 % (0-1); EOSINOPHILS # (AUTO) 0.1 X10'3 (0-0.9); EOSINOPHILS % (AUTO) 2.8 % (0-6); HEMATOCRIT 39.1 % (42.0-52.0); HEMOGLOBIN 13.1 g/dl (14.0-17.9); LYMPHOCYTES # (AUTO) 0.8 X10'3 (1.1-4.8); LYMPHOCYTES % (AUTO) 21.4 % (21-51); MEAN CORPUSCULAR HEMOGLOBIN 30.9 PG (27.0-31.0); MEAN CORPUSCULAR HGB CONC 33.5 g/dL (33.0-36.5); MEAN CORPUSCULAR VOLUME 92.2 FL (78-98); MEAN PLATELET VOLUME 6.9 FL (7.4-10.4); MONOCYTES # (AUTO) 0.5 X10'3 (0-0.9); MONOCYTES % (AUTO) 15.2 % (2-12); NEUTROPHILS # (AUTO) 2.1 X10'3 (1.8-7.7); NEUTROPHILS % (AUTO) 59.7 % (42-75); PLATELET COUNT 291 X10'3 (140-440); RED BLOOD COUNT 4.24 X10'6 (4.70-6.10); RED CELL DISTRIBUTION WIDTH 13.9 % (11.5-14.5); WHITE BLOOD COUNT 3.5 X10'3 (4.5-11.0)
[2018-09-27] MEDS ORDERED: normal saline 1000ML IV soln IVB ONE (14:00)
[2018-09-27 14:11] LABS: ALANINE AMINOTRANSFERASE 39 U/L (12-78); ALBUMIN 3.5 G/DL (3.4-5.0); ALKALINE PHOSPHATASE 97 IU/L (46-116); ANION GAP 10 (8-16); ASPARTATE AMINO TRANSFERASE 25 U/L (10-37); BILIRUBIN,TOTAL 0.3 MG/DL (0.1-1.0); BLOOD UREA NITROGEN 12 MG/DL (7-18); BUN/CREATININE RATIO 10.2 (5.4-32.0); CALCIUM 9.9 MG/DL (8.5-10.1); CHLORIDE 106 MMOL/L (99-107); CREATININE 1.18 MG/DL (0.60-1.10); GLUCOSE 101 MG/DL (70-104); POTASSIUM 4.5 MMOL/L (3.5-5.1); SODIUM 145 MMOL/L (135-145); TOTAL CARBON DIOXIDE 29.5 MMOL/L (24-32); TOTAL PROTEIN 6.9 G/DL (6.4-8.2); eGFR 63 ML/MIN
[2018-09-27 14:14] LABS: PARTIAL THROMBOPLASTIN TIME 26 SECONDS (22-32)
[2018-09-27 14:35] LABS: PLATELET ESTIMATE NORMAL; TOTAL CELLS COUNTED 100
[2018-09-27] MEDS ORDERED: famotidine 20mg tablet PO ONE (15:00)
[2018-09-27] MEDS ORDERED: mag hydrox/Alum hydrox/simeth 30ml oral suspension PO ONE (15:00)
[2018-09-27] MEDS ORDERED: LIDOcaine Viscous 15ml cup PO ONE (15:00)
--- NOTE | 2018-09-27 15:50 | NUR ---
PT STATES HE DOESNT HAVE PAIN ANYMORE. PT INFORMED TO F/U WITH GI DOCTOR, NAME AND NUMBER ON HIS DC PAPERWORK.
[2018-09-27 15:52] VITALS: BP 134/91
== END 2018-09-27 15:52 | disposition home or self-care (01) ==
LOC: ER 13:08
DX: R07.89 Other chest pain (principal); R06.02 Shortness of breath; K22.70 Barrett's esophagus without dysplasia; J44.9 Chronic obstructive pulmonary disease, unspecified; G89.29 Other chronic pain; F10.99 Alcohol use, unspecified with unspecified alcohol-induced disorder; Z60.2 Problems related to living alone; Z56.0 Unemployment, unspecified; Z88.8 Allergy status to other drugs, medicaments and biological substances; Z88.2 Allergy status to sulfonamides; Z79.899 Other long term (current) drug therapy; Y90.9 Presence of alcohol in blood, level not specified
CPT/HCPCS: 36415; 71045; 80053; 84484; 85025; 85610; 85730; 93005; 99284; J7030

== ENCOUNTER 2018-09-30 12:04 | Emergency (ER) | payer MEDICARE, MEDICAID ==
[~2018-09-30] VITALS: Ht 190.5 cm; Wt 81.8 kg
[2018-09-30] MEDS ORDERED: LORazepam 1 MG tablet PO ONE (12:25)
[2018-09-30 12:55] LABS: BASOPHILS % (AUTO) 0.4 % (0-1); EOSINOPHILS % (AUTO) 0.8 % (0-6); HEMATOCRIT 39.2 % (42.0-52.0); HEMOGLOBIN 13.1 g/dl (14.0-17.9); LYMPHOCYTES # (AUTO) 0.5 X10'3 (1.1-4.8); LYMPHOCYTES % (AUTO) 14.5 % (21-51); MEAN CORPUSCULAR HEMOGLOBIN 31.1 PG (27.0-31.0); MEAN CORPUSCULAR HGB CONC 33.5 g/dL (33.0-36.5); MEAN CORPUSCULAR VOLUME 92.8 FL (78-98); MEAN PLATELET VOLUME 7.1 FL (7.4-10.4); MONOCYTES # (AUTO) 0.3 X10'3 (0-0.9); MONOCYTES % (AUTO) 8.8 % (2-12); NEUTROPHILS # (AUTO) 2.8 X10'3 (1.8-7.7); NEUTROPHILS % (AUTO) 75.5 % (42-75); PLATELET COUNT 299 X10'3 (140-440); RED BLOOD COUNT 4.22 X10'6 (4.70-6.10); WHITE BLOOD COUNT 3.8 X10'3 (4.5-11.0)
[2018-09-30 13:13] LABS: PARTIAL THROMBOPLASTIN TIME 27 SECONDS (22-32)
[2018-09-30 13:14] LABS: ALANINE AMINOTRANSFERASE 34 U/L (12-78); ALBUMIN 3.3 G/DL (3.4-5.0); ALKALINE PHOSPHATASE 91 IU/L (46-116); ANION GAP 8 (8-16); ASPARTATE AMINO TRANSFERASE 21 U/L (10-37); BILIRUBIN,TOTAL 0.4 MG/DL (0.1-1.0); BLOOD UREA NITROGEN 14 MG/DL (7-18); BUN/CREATININE RATIO 11.4 (5.4-32.0); CALCIUM 8.6 MG/DL (8.5-10.1); CHLORIDE 108 MMOL/L (99-107); CREATININE 1.23 MG/DL (0.60-1.10); GLUCOSE 109 MG/DL (70-104); POTASSIUM 4.1 MMOL/L (3.5-5.1); SODIUM 143 MMOL/L (135-145); TOTAL CARBON DIOXIDE 27.3 MMOL/L (24-32); TOTAL PROTEIN 6.5 G/DL (6.4-8.2); eGFR 60 ML/MIN
[2018-09-30] MEDS ORDERED: sucralfate 1gm/10ml UD suspension PO STA (13:21)
[2018-09-30 13:23] LABS: D-DIMER 2.02 MG/L FEU (0-0.50)
[2018-09-30] MEDS ORDERED: mag hydrox/Alum hydrox/simeth 30ml oral suspension PO ONE (13:25)
[2018-09-30] MEDS ORDERED: LIDOcaine Viscous 15ml cup PO ONE (13:25)
[2018-09-30] MEDS ORDERED: PRED20TA PO (13:49)
[2018-09-30 14:13] VITALS: BP 142/96
== END 2018-09-30 14:17 | disposition home or self-care (01) ==
LOC: ER 12:05
DX: J40 Bronchitis, not specified as acute or chronic (principal); J44.9 Chronic obstructive pulmonary disease, unspecified; G89.29 Other chronic pain; Z56.0 Unemployment, unspecified; Z87.891 Personal history of nicotine dependence; Z88.2 Allergy status to sulfonamides; Z88.1 Allergy status to other antibiotic agents; Z79.899 Other long term (current) drug therapy
CPT/HCPCS: 36415; 71045; 80053; 84484; 85025; 85379; 85610; 85730; 93005; 99284

== ENCOUNTER 2018-10-03 09:54 | Emergency (ER) | payer MEDICARE, MEDICAID ==
[~2018-10-03] VITALS: Ht 190.5 cm; Wt 86.4 kg
[~2018-10-03 09:54] MED LIST changes: +PRED20TA PO
[2018-10-03 10:33] LABS: BASOPHILS % (AUTO) 0.6 % (0-1); EOSINOPHILS # (AUTO) 0.1 X10'3 (0-0.9); EOSINOPHILS % (AUTO) 1.3 % (0-6); HEMATOCRIT 40.4 % (42.0-52.0); HEMOGLOBIN 13.7 g/dl (14.0-17.9); LYMPHOCYTES # (AUTO) 0.7 X10'3 (1.1-4.8); LYMPHOCYTES % (AUTO) 13.5 % (21-51); MEAN CORPUSCULAR HEMOGLOBIN 31.5 PG (27.0-31.0); MEAN CORPUSCULAR VOLUME 92.6 FL (78-98); MEAN PLATELET VOLUME 7.4 FL (7.4-10.4); MONOCYTES # (AUTO) 0.4 X10'3 (0-0.9); MONOCYTES % (AUTO) 9.3 % (2-12); NEUTROPHILS # (AUTO) 3.6 X10'3 (1.8-7.7); NEUTROPHILS % (AUTO) 75.3 % (42-75); PLATELET COUNT 288 X10'3 (140-440); RED BLOOD COUNT 4.37 X10'6 (4.70-6.10); RED CELL DISTRIBUTION WIDTH 14.1 % (11.5-14.5); WHITE BLOOD COUNT 4.8 X10'3 (4.5-11.0)
[2018-10-03 10:42] LABS: ALANINE AMINOTRANSFERASE 38 U/L (12-78); ALBUMIN 3.3 G/DL (3.4-5.0); ALKALINE PHOSPHATASE 91 IU/L (46-116); ANION GAP 11 (8-16); ASPARTATE AMINO TRANSFERASE 22 U/L (10-37); BILIRUBIN,TOTAL 0.3 MG/DL (0.1-1.0); BLOOD UREA NITROGEN 22 MG/DL (7-18); CALCIUM 9.2 MG/DL (8.5-10.1); CHLORIDE 111 MMOL/L (99-107); CREATININE 1.05 MG/DL (0.60-1.10); GLUCOSE 145 MG/DL (70-104); POTASSIUM 3.7 MMOL/L (3.5-5.1); SODIUM 146 MMOL/L (135-145); TOTAL CARBON DIOXIDE 23.6 MMOL/L (24-32); TOTAL PROTEIN 6.6 G/DL (6.4-8.2); eGFR 72 ML/MIN
[2018-10-03 10:53] LABS: PARTIAL THROMBOPLASTIN TIME 27 SECONDS (22-32)
[2018-10-03] MEDS ORDERED: normal saline 1000ml 1,000 ML IV ONE (10:55)
[2018-10-03] MEDS ORDERED: normal saline 1000ml 1,000 ML IVB ONE (11:01)
[2018-10-03] MEDS ORDERED: normal saline 500ml IV soln 500 ML IV ONE (11:05)
[2018-10-03 11:18] LABS: CLARITY,URINE CLEAR (Clear); COLOR,URINE YELLOW (Yellow); GLUCOSE, URINE NEGATIVE (Neg); KETONES,URINE TRACE mg/dl (Neg); LEUKOCYTE ESTERASE ,URINE NEGATIVE (Neg); NITRITES, URINE NEGATIVE (Neg); OCCULT BLOOD,URINE NEGATIVE (Neg); PH,URINE 5.5 (4.8-8.0); PROTEIN,URINE NEGATIVE (Neg); UROBILINOGEN,URINE 0.2 E.U/dL (0.2-1.0)
[2018-10-03 11:33] LABS: UA COLLECTION TYPE URINAL
[2018-10-03] MEDS ORDERED: ipratropium/albuterol 3ml nebule NEB ONE (11:55)
[2018-10-03] MEDS ORDERED: PRED10TA PO (12:42)
[2018-10-03 13:11] VITALS: BP 137/94
== END 2018-10-03 13:14 | disposition home or self-care (01) ==
LOC: ER 09:54
DX: J44.1 Chronic obstructive pulmonary disease with (acute) exacerbation (principal); G89.29 Other chronic pain; Z56.0 Unemployment, unspecified; Z88.2 Allergy status to sulfonamides; Z88.8 Allergy status to other drugs, medicaments and biological substances; Z79.899 Other long term (current) drug therapy
CPT/HCPCS: 36415; 71045; 80053; 81003; 83605; 84145; 84484; 85025; 85610; 85730; 87040; 93005; 94640; 94760; 99284; J7030; J7040

== ENCOUNTER → 2018-10-08 | Emergency (ER) | payer MEDICARE, MEDICAID ==
[~2018-10-08] VITALS: Ht 190.5 cm; Wt 85.0 kg
[~2018-10-08] MED LIST changes: +ALBU18HF2 INH; +AZIT-63 PO; +CYCL-1 PO; +IBUP-1985 PO; +OMEP40CA13 PO; +PRED10TA PO; -PRED20TA PO; +methylPREDNISolone sod succ 125mg/2ml vial IM ONE
[2018-10-08 18:35] LABS: BASOPHILS % (AUTO) 0.5 % (0-1); EOSINOPHILS # (AUTO) 0.1 X10'3 (0-0.9); EOSINOPHILS % (AUTO) 2.3 % (0-6); HEMATOCRIT 37.5 % (42.0-52.0); HEMOGLOBIN 12.8 g/dl (14.0-17.9); LYMPHOCYTES # (AUTO) 1.4 X10'3 (1.1-4.8); LYMPHOCYTES % (AUTO) 33.7 % (21-51); MEAN CORPUSCULAR HEMOGLOBIN 31.6 PG (27.0-31.0); MEAN CORPUSCULAR HGB CONC 34.1 g/dL (33.0-36.5); MEAN CORPUSCULAR VOLUME 92.8 FL (78-98); MEAN PLATELET VOLUME 7.3 FL (7.4-10.4); MONOCYTES # (AUTO) 0.4 X10'3 (0-0.9); MONOCYTES % (AUTO) 9.7 % (2-12); NEUTROPHILS # (AUTO) 2.2 X10'3 (1.8-7.7); NEUTROPHILS % (AUTO) 53.8 % (42-75); PLATELET COUNT 326 X10'3 (140-440); RED BLOOD COUNT 4.05 X10'6 (4.70-6.10); RED CELL DISTRIBUTION WIDTH 13.8 % (11.5-14.5)
[2018-10-08 18:50] LABS: ALANINE AMINOTRANSFERASE 47 U/L (12-78); ALBUMIN 3.2 G/DL (3.4-5.0); ALBUMIN/GLOBULIN RATIO 1.1 (1.1-1.5); ALKALINE PHOSPHATASE 86 IU/L (46-116); ANION GAP 12 (8-16); ASPARTATE AMINO TRANSFERASE 33 U/L (10-37); BILIRUBIN,TOTAL 0.2 MG/DL (0.1-1.0); BLOOD UREA NITROGEN 15 MG/DL (7-18); CALCIUM 8.5 MG/DL (8.5-10.1); CHLORIDE 108 MMOL/L (99-107); GLUCOSE 98 MG/DL (70-104); SODIUM 144 MMOL/L (135-145); TOTAL CARBON DIOXIDE 23.8 MMOL/L (24-32); TOTAL PROTEIN 6.2 G/DL (6.4-8.2); eGFR 76 ML/MIN
[2018-10-08 20:43] VITALS: BP 144/93
== END | disposition home or self-care (01) ==
LOC: ER 17:47
DX: R06.00 Dyspnea, unspecified (principal); J44.9 Chronic obstructive pulmonary disease, unspecified; G89.29 Other chronic pain; Z56.0 Unemployment, unspecified; Z88.8 Allergy status to other drugs, medicaments and biological substances; Z88.1 Allergy status to other antibiotic agents; Z79.899 Other long term (current) drug therapy
CPT/HCPCS: 36415; 71045; 80053; 83880; 84484; 85025; 93005; 96372; 99284; J2930

== ENCOUNTER 2018-10-09 18:39 | Emergency (ER) | payer MEDICARE, MEDICAID ==
[~2018-10-09] VITALS: Ht 190.5 cm; Wt 85.9 kg
[~2018-10-09 18:39] MED LIST changes: -ALBU18HF2 INH; -AZIT-63 PO; -CYCL-1 PO; -IBUP-1985 PO; -OMEP40CA13 PO; -methylPREDNISolone sod succ 125mg/2ml vial IM ONE
[2018-10-09] MEDS ORDERED: ipratropium/albuterol 3ml nebule NEB ONE (18:45)
--- NOTE | 2018-10-09 18:54 | NUR ---
RT AT BEDSIDE
[2018-10-09] MEDS ORDERED: normal saline 1000ML IV soln IVB ONE (19:20)
[2018-10-09] MEDS ORDERED: cyclobenzaprine 10mg tablet PO ONE (19:25)
[2018-10-09 19:47] LABS: BASOPHILS % (AUTO) 0 % (0-1); EOSINOPHILS % (AUTO) 0 % (0-6); HEMATOCRIT 40.8 % (42.0-52.0); HEMOGLOBIN 13.5 g/dl (14.0-17.9); LYMPHOCYTES # (AUTO) 0.3 X10'3 (1.1-4.8); LYMPHOCYTES % (AUTO) 3.2 % (21-51); MEAN CORPUSCULAR HEMOGLOBIN 30.5 PG (27.0-31.0); MEAN CORPUSCULAR HGB CONC 33.1 g/dL (33.0-36.5); MEAN PLATELET VOLUME 7.3 FL (7.4-10.4); MONOCYTES # (AUTO) 0.6 X10'3 (0-0.9); MONOCYTES % (AUTO) 5.8 % (2-12); PLATELET COUNT 372 X10'3 (140-440); RED BLOOD COUNT 4.43 X10'6 (4.70-6.10); RED CELL DISTRIBUTION WIDTH 13.5 % (11.5-14.5); WHITE BLOOD COUNT 9.8 X10'3 (4.5-11.0)
[2018-10-09 20:05] LABS: ALANINE AMINOTRANSFERASE 56 U/L (12-78); ALBUMIN 3.6 G/DL (3.4-5.0); ALBUMIN/GLOBULIN RATIO 1.1 (1.1-1.5); ALKALINE PHOSPHATASE 90 IU/L (46-116); ANION GAP 13 (8-16); ASPARTATE AMINO TRANSFERASE 37 U/L (10-37); BILIRUBIN,TOTAL 0.3 MG/DL (0.1-1.0); BLOOD UREA NITROGEN 12 MG/DL (7-18); BUN/CREATININE RATIO 11.2 (5.4-32.0); CHLORIDE 109 MMOL/L (99-107); CREATININE 1.07 MG/DL (0.60-1.10); GLUCOSE 124 MG/DL (70-104); POTASSIUM 4.3 MMOL/L (3.5-5.1); SODIUM 147 MMOL/L (135-145); TOTAL CARBON DIOXIDE 24.7 MMOL/L (24-32); TOTAL PROTEIN 6.9 G/DL (6.4-8.2); TROPONIN I < 0.04 NG/ML (0.0-0.05); eGFR 71 ML/MIN
[2018-10-09] MEDS ORDERED: AZIT-63 PO (20:11)
[2018-10-09 20:24] VITALS: BP 131/89
== END 2018-10-09 20:55 | disposition home or self-care (01) ==
LOC: ER 18:40
DX: J40 Bronchitis, not specified as acute or chronic (principal); R00.0 Tachycardia, unspecified; J44.9 Chronic obstructive pulmonary disease, unspecified; G89.29 Other chronic pain; Z60.2 Problems related to living alone; Z56.0 Unemployment, unspecified; Z87.891 Personal history of nicotine dependence; Z88.8 Allergy status to other drugs, medicaments and biological substances; Z79.2 Long term (current) use of antibiotics; Z79.899 Other long term (current) drug therapy; Z88.2 Allergy status to sulfonamides
CPT/HCPCS: 36415; 71045; 80053; 84484; 85025; 93005; 94640; 94760; 99284; J7030

== ENCOUNTER 2018-10-11 16:35 | Emergency (ER) | payer MEDICARE, MEDICAID ==
[~2018-10-11] VITALS: Ht 190.5 cm; Wt 86.4 kg
[~2018-10-11 16:35] MED LIST changes: +AZIT-63 PO
[2018-10-11 17:44] VITALS: BP 153/108
[2018-10-11] MEDS ORDERED: cyclobenzaprine 10mg tablet PO ONE (18:00)
== END 2018-10-11 18:51 | disposition home or self-care (01) ==
LOC: ER 16:35
DX: J40 Bronchitis, not specified as acute or chronic (principal); G89.29 Other chronic pain; M54.2 Cervicalgia; M62.838 Other muscle spasm; J44.9 Chronic obstructive pulmonary disease, unspecified; Z56.0 Unemployment, unspecified; Z88.2 Allergy status to sulfonamides; Z79.2 Long term (current) use of antibiotics
CPT/HCPCS: 99283

== ENCOUNTER 2018-10-14 09:25 | Emergency (ER) | payer MEDICARE, MEDICAID ==
[~2018-10-14] VITALS: Ht 190.5 cm; Wt 86.0 kg
[2018-10-14 10:12] LABS: BASOPHILS % (AUTO) 0.1 % (0-1); EOSINOPHILS % (AUTO) 0.6 % (0-6); HEMATOCRIT 40.9 % (42.0-52.0); HEMOGLOBIN 13.7 g/dl (14.0-17.9); LYMPHOCYTES # (AUTO) 0.8 X10'3 (1.1-4.8); LYMPHOCYTES % (AUTO) 10.7 % (21-51); MEAN CORPUSCULAR HEMOGLOBIN 31.1 PG (27.0-31.0); MEAN CORPUSCULAR HGB CONC 33.4 g/dL (33.0-36.5); MEAN CORPUSCULAR VOLUME 93.2 FL (78-98); MEAN PLATELET VOLUME 7.6 FL (7.4-10.4); MONOCYTES # (AUTO) 0.5 X10'3 (0-0.9); MONOCYTES % (AUTO) 6.4 % (2-12); NEUTROPHILS # (AUTO) 6.1 X10'3 (1.8-7.7); NEUTROPHILS % (AUTO) 82.2 % (42-75); PLATELET COUNT 270 X10'3 (140-440); RED BLOOD COUNT 4.39 X10'6 (4.70-6.10); RED CELL DISTRIBUTION WIDTH 13.8 % (11.5-14.5); WHITE BLOOD COUNT 7.4 X10'3 (4.5-11.0)
[2018-10-14] MEDS ORDERED: normal saline 1000ML IV soln IVB ONE ×2 (10:20→11:55)
[2018-10-14 10:27] LABS: ALANINE AMINOTRANSFERASE 103 U/L (12-78); ALBUMIN 3.4 G/DL (3.4-5.0); ALBUMIN/GLOBULIN RATIO 1.1 (1.1-1.5); ALKALINE PHOSPHATASE 115 IU/L (46-116); ANION GAP 13 (8-16); ASPARTATE AMINO TRANSFERASE 49 U/L (10-37); BILIRUBIN,TOTAL 0.3 MG/DL (0.1-1.0); BLOOD UREA NITROGEN 21 MG/DL (7-18); BUN/CREATININE RATIO 13.8 (5.4-32.0); CALCIUM 8.6 MG/DL (8.5-10.1); CHLORIDE 107 MMOL/L (99-107); CREATININE 1.52 MG/DL (0.60-1.10); GLUCOSE 123 MG/DL (70-104); POTASSIUM 4.2 MMOL/L (3.5-5.1); SODIUM 144 MMOL/L (135-145); TOTAL CARBON DIOXIDE 24.2 MMOL/L (24-32); TOTAL PROTEIN 6.5 G/DL (6.4-8.2); eGFR 47 ML/MIN
[2018-10-14 10:30] LABS: PARTIAL THROMBOPLASTIN TIME 25 SECONDS (22-32)
[2018-10-14 11:39] LABS: D-DIMER 2.72 MG/L FEU (0-0.50)
[2018-10-14] MEDS ORDERED: iohexol 350MG/ML 100ml bottle IV ONE (12:08)
--- NOTE | 2018-10-14 12:32 | NUR ---
BACK FROM CT SCAN
[2018-10-14 13:52] VITALS: BP 142/99
== END 2018-10-14 13:55 | disposition home or self-care (01) ==
LOC: ER 09:27
DX: R06.02 Shortness of breath (principal); J44.9 Chronic obstructive pulmonary disease, unspecified; G89.29 Other chronic pain; D49.6 Neoplasm of unspecified behavior of brain; Z56.0 Unemployment, unspecified; Z98.890 Other specified postprocedural states
CPT/HCPCS: 36415; 71045; 71275; 80053; 84484; 85025; 85379; 85610; 85730; 93005; 99284; J7030; J7040; Q9967

== ENCOUNTER 2018-10-29 13:33 | Emergency (ER) | payer MEDICARE, MEDICAID ==
[~2018-10-29] VITALS: Ht 190.5 cm; Wt 70.6 kg
[2018-10-29 14:05] LABS: BASOPHILS % (AUTO) 0.7 % (0-1); EOSINOPHILS # (AUTO) 0.1 X10'3 (0-0.9); EOSINOPHILS % (AUTO) 1.3 % (0-6); HEMATOCRIT 39.1 % (42.0-52.0); LYMPHOCYTES % (AUTO) 19.6 % (21-51); MEAN CORPUSCULAR HEMOGLOBIN 31.1 PG (27.0-31.0); MEAN CORPUSCULAR HGB CONC 33.2 g/dL (33.0-36.5); MEAN CORPUSCULAR VOLUME 93.6 FL (78-98); MEAN PLATELET VOLUME 7.2 FL (7.4-10.4); MONOCYTES # (AUTO) 0.5 X10'3 (0-0.9); MONOCYTES % (AUTO) 10.1 % (2-12); NEUTROPHILS # (AUTO) 3.6 X10'3 (1.8-7.7); NEUTROPHILS % (AUTO) 68.3 % (42-75); PLATELET COUNT 228 X10'3 (140-440); RED BLOOD COUNT 4.17 X10'6 (4.70-6.10); RED CELL DISTRIBUTION WIDTH 14.5 % (11.5-14.5); WHITE BLOOD COUNT 5.3 X10'3 (4.5-11.0)
[2018-10-29] MEDS ORDERED: LORazepam 2 mg/ml vial IV ONE (14:15)
[2018-10-29] MEDS ORDERED: normal saline 1000ML IV soln IVB ONE (14:15)
[2018-10-29 14:22] LABS: ALANINE AMINOTRANSFERASE 42 U/L (12-78); ALBUMIN/GLOBULIN RATIO 0.9 (1.1-1.5); ALKALINE PHOSPHATASE 134 IU/L (46-116); ANION GAP 11 (8-16); ASPARTATE AMINO TRANSFERASE 24 U/L (10-37); BILIRUBIN,TOTAL 0.3 MG/DL (0.1-1.0); BLOOD UREA NITROGEN 17 MG/DL (7-18); CALCIUM 8.5 MG/DL (8.5-10.1); CHLORIDE 107 MMOL/L (99-107); CREATININE 1.21 MG/DL (0.60-1.10); GLUCOSE 112 MG/DL (70-104); POTASSIUM 4.4 MMOL/L (3.5-5.1); SODIUM 141 MMOL/L (135-145); TOTAL CARBON DIOXIDE 22.9 MMOL/L (24-32); TOTAL PROTEIN 6.3 G/DL (6.4-8.2); eGFR 61 ML/MIN
[2018-10-29 14:25] LABS: D-DIMER 9.15 MG/L FEU (0-0.50)
[2018-10-29 14:53] VITALS: BP 137/94
[2018-10-29] MEDS ORDERED: iohexol 350MG/ML 100ml bottle IV ONE (15:32)
--- NOTE | 2018-10-29 15:39 | NUR ---
RN TO ACCOMPANY PATIENT TO CT.
[2018-10-29] MEDS ORDERED: OMEP40CA13 PO (16:35)
[2018-10-29] MEDS ORDERED: CYCL-1 PO (17:33)
== END 2018-10-29 16:29 | disposition home or self-care (01) ==
LOC: ER 13:34
DX: J90 Pleural effusion, not elsewhere classified (principal); E86.0 Dehydration; J44.9 Chronic obstructive pulmonary disease, unspecified; G89.29 Other chronic pain; F10.99 Alcohol use, unspecified with unspecified alcohol-induced disorder; Z60.2 Problems related to living alone; Z56.0 Unemployment, unspecified; Z98.890 Other specified postprocedural states; Z85.841 Personal history of malignant neoplasm of brain; Z87.891 Personal history of nicotine dependence; Z88.2 Allergy status to sulfonamides; Z88.8 Allergy status to other drugs, medicaments and biological substances; Z79.899 Other long term (current) drug therapy; Y90.9 Presence of alcohol in blood, level not specified
CPT/HCPCS: 36415; 71046; 71275; 80053; 83735; 83880; 84484; 85025; 85379; 85610; 93005; 96361; 96374; 99284; J2060; J7030; Q9967

== ENCOUNTER 2018-11-08 17:13 | Emergency (ER) | payer MEDICARE, MEDICAID ==
[~2018-11-08] VITALS: Ht 190.5 cm; Wt 90.0 kg
[~2018-11-08 17:13] MED LIST changes: -AZIT-63 PO; +CYCL-1 PO; +OMEP40CA13 PO
[2018-11-08 17:41] LABS: BASOPHILS % (AUTO) 0.5 % (0-1); EOSINOPHILS # (AUTO) 0.2 X10'3 (0-0.9); HEMATOCRIT 38.1 % (42.0-52.0); HEMOGLOBIN 12.8 g/dl (14.0-17.9); LYMPHOCYTES # (AUTO) 1.2 X10'3 (1.1-4.8); LYMPHOCYTES % (AUTO) 22.1 % (21-51); MEAN CORPUSCULAR HEMOGLOBIN 31.1 PG (27.0-31.0); MEAN CORPUSCULAR HGB CONC 33.7 g/dL (33.0-36.5); MEAN CORPUSCULAR VOLUME 92.5 FL (78-98); MEAN PLATELET VOLUME 7.2 FL (7.4-10.4); MONOCYTES # (AUTO) 0.5 X10'3 (0-0.9); MONOCYTES % (AUTO) 8.9 % (2-12); NEUTROPHILS # (AUTO) 3.5 X10'3 (1.8-7.7); NEUTROPHILS % (AUTO) 65.5 % (42-75); PLATELET COUNT 324 X10'3 (140-440); RED BLOOD COUNT 4.12 X10'6 (4.70-6.10); WHITE BLOOD COUNT 5.4 X10'3 (4.5-11.0)
[2018-11-08 17:53] LABS: ALANINE AMINOTRANSFERASE 43 U/L (12-78); ALBUMIN 3.3 G/DL (3.4-5.0); ALKALINE PHOSPHATASE 126 IU/L (46-116); ANION GAP 10 (8-16); ASPARTATE AMINO TRANSFERASE 25 U/L (10-37); BILIRUBIN,TOTAL 0.2 MG/DL (0.1-1.0); BLOOD UREA NITROGEN 17 MG/DL (7-18); CALCIUM 8.7 MG/DL (8.5-10.1); CHLORIDE 108 MMOL/L (99-107); CREATININE 1.06 MG/DL (0.60-1.10); GLUCOSE 124 MG/DL (70-104); PARTIAL THROMBOPLASTIN TIME 26 SECONDS (22-32); POTASSIUM 3.8 MMOL/L (3.5-5.1); SODIUM 143 MMOL/L (135-145); TOTAL CARBON DIOXIDE 25.3 MMOL/L (24-32); TOTAL PROTEIN 6.5 G/DL (6.4-8.2); eGFR 72 ML/MIN
[2018-11-08] MEDS ORDERED: ketorolac tromethamine 15mg/ml inj. IM ONE (20:40)
[2018-11-08] MEDS ORDERED: cyclobenzaprine 10mg tablet PO ONE (20:40)
[2018-11-08] MEDS ORDERED: CYCL-1 PO (21:11)
--- NOTE | 2018-11-08 21:18 | NUR ---
MAYRA NOT WORKING. 3 CHECKS FOR ACCURACY TO CONFIRM.
[2018-11-08 21:28] VITALS: BP 170/106
== END 2018-11-08 21:32 | disposition home or self-care (01) ==
LOC: ER 17:14
DX: R07.89 Other chest pain (principal); J44.9 Chronic obstructive pulmonary disease, unspecified; G89.29 Other chronic pain; Z56.0 Unemployment, unspecified; Z98.890 Other specified postprocedural states; Z85.841 Personal history of malignant neoplasm of brain; Z79.899 Other long term (current) drug therapy; Z88.1 Allergy status to other antibiotic agents
CPT/HCPCS: 36415; 71045; 80053; 84484; 85025; 85610; 85730; 93005; 96372; 99284; J1885

== ENCOUNTER 2018-11-22 14:57 | Emergency (ER) | payer MEDICARE, MEDICAID ==
[~2018-11-22] VITALS: Ht 190.5 cm; Wt 87.9 kg
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
[2018-11-22 15:45] VITALS: BP 173/106
--- NOTE | 2018-11-22 15:46 | NUR ---
Provider is with the patient at this time.
[2018-11-22] MEDS ORDERED: ketorolac tromethamine 15mg/ml inj. IM ONE (15:50)
[2018-11-22] MEDS ORDERED: IBUP-1985 PO (16:31)
--- NOTE | 2018-11-22 16:43 | NUR ---
CALLED A CAB FOR PT, HOSPITAL PAYING, HE WAS ABLE TO AMBULATE AROUND THE TO WAITING ROOM WITH NO ISSUES, NO APPARENT PAIN, NO SOB
== END 2018-11-22 16:47 | disposition home or self-care (01) ==
LOC: ER 14:57
DX: M54.5 Low back pain (principal); J44.9 Chronic obstructive pulmonary disease, unspecified; G89.29 Other chronic pain; Z98.890 Other specified postprocedural states; Z56.0 Unemployment, unspecified; Z88.1 Allergy status to other antibiotic agents; Z88.2 Allergy status to sulfonamides; Z88.8 Allergy status to other drugs, medicaments and biological substances; Z79.899 Other long term (current) drug therapy
CPT/HCPCS: 72100; 96372; 99283; J1885

== ENCOUNTER 2018-11-24 02:45 | Inpatient (IN) | payer MEDICARE, MEDICAID ==
[2018-11-24] VITALS (7 sets, daily range): BP systolic 139–176; BP diastolic 76–112
[~2018-11-24] VITALS: Ht 190.5 cm; Wt 92.0 kg
[~2018-11-24 02:45] MED LIST changes: +IBUP-1985 PO
[2018-11-24 04:32] LABS: CLARITY,URINE CLEAR (Clear); COLOR,URINE YELLOW (Yellow); GLUCOSE, URINE NEGATIVE (Neg); KETONES,URINE 15 mg/dl (Neg); LEUKOCYTE ESTERASE ,URINE NEGATIVE (Neg); NITRITES, URINE NEGATIVE (Neg); OCCULT BLOOD,URINE NEGATIVE (Neg); PH,URINE 5.5 (4.8-8.0); PROTEIN,URINE NEGATIVE (Neg); UROBILINOGEN,URINE 0.2 E.U/dL (0.2-1.0)
[2018-11-24 04:36] LABS: ANION GAP 9 (8-16); BILIRUBIN,TOTAL 0.4 MG/DL (0.1-1.0); BLOOD UREA NITROGEN 13 MG/DL (7-18); CALCIUM 9.3 MG/DL (8.5-10.1); CHLORIDE 108 MMOL/L (99-107); CREATININE 0.93 MG/DL (0.60-1.10); GLUCOSE 95 MG/DL (70-104); MAGNESIUM 1.9 MG/DL (1.5-2.4); POTASSIUM 4.6 MMOL/L (3.5-5.1); SODIUM 144 MMOL/L (135-145); TOTAL CARBON DIOXIDE 27.3 MMOL/L (24-32); eGFR 83 ML/MIN
[2018-11-24 04:37] LABS: ALANINE AMINOTRANSFERASE 59 U/L (12-78); ALBUMIN 2.9 G/DL (3.4-5.0); ALBUMIN/GLOBULIN RATIO 0.9 (1.1-1.5); ALKALINE PHOSPHATASE 130 IU/L (46-116); ASPARTATE AMINO TRANSFERASE 69 U/L (10-37); TOTAL PROTEIN 6.2 G/DL (6.4-8.2)
[2018-11-24 04:38] LABS: UA COLLECTION TYPE NON-SPECIFIED
[2018-11-24] MEDS ORDERED: iohexol 350MG/ML 100ml bottle IV ONE (04:44)
[2018-11-24 04:49] LABS: BASOPHILS % (AUTO) 0.7 % (0-1); EOSINOPHILS # (AUTO) 0.1 X10'3 (0-0.9); EOSINOPHILS % (AUTO) 2.8 % (0-6); HEMATOCRIT 34.5 % (42.0-52.0); HEMOGLOBIN 11.9 g/dl (14.0-17.9); LYMPHOCYTES # (AUTO) 0.9 X10'3 (1.1-4.8); LYMPHOCYTES % (AUTO) 18.7 % (21-51); MEAN CORPUSCULAR HEMOGLOBIN 30.9 PG (27.0-31.0); MEAN CORPUSCULAR HGB CONC 34.4 g/dL (33.0-36.5); MEAN CORPUSCULAR VOLUME 89.9 FL (78-98); MEAN PLATELET VOLUME 6.9 FL (7.4-10.4); MONOCYTES # (AUTO) 0.5 X10'3 (0-0.9); NEUTROPHILS # (AUTO) 3.3 X10'3 (1.8-7.7); NEUTROPHILS % (AUTO) 67.8 % (42-75); PLATELET COUNT 206 X10'3 (140-440); RED BLOOD COUNT 3.84 X10'6 (4.70-6.10); RED CELL DISTRIBUTION WIDTH 13.7 % (11.5-14.5); WHITE BLOOD COUNT 4.8 X10'3 (4.5-11.0)
[2018-11-24] MEDS ORDERED: enoxaparin 100mg/ml syringe SUBCUT ONE ×2 (05:50→05:55)
--- NOTE | 2018-11-24 06:34 | NUR ---
PT RESTING POC. NO DISTRESS. VSS. WAITING HOSPITALIST FOR ADMIT.
[2018-11-24] MEDS ORDERED: acetaminophen 325mg tablet PO PRN (07:10)
[2018-11-24] MEDS ORDERED: mag hydrox/Alum hydrox/simeth 30ml oral suspension PO PRN (07:10)
[2018-11-24] MEDS ORDERED: normal saline 1000ML IV soln IVB ONE (07:10)
[2018-11-24] MEDS ORDERED: ondansetron/PF 4mg/2ml inj IV PRN (07:10)
[2018-11-24] MEDS ORDERED: IBUP-1985 PO (07:23)
[2018-11-24] MEDS ORDERED: ALBU18HF2 INH (07:23)
[2018-11-24] MEDS: enoxaparin 100mg/ml syringe SUBCUT SCH ×2 (08:00→19:07)
--- NOTE | 2018-11-24 09:00 | NUR ---
Patient in room PCU 3024. I have received report from Stephie RICHEY and had the opportunity to ask questions and assume patient care.
--- NOTE | 2018-11-24 10:30 | NUR ---
Patient c/o 8/10 pain on inspiration. SpO2 at 96%. Lungs are clear throughout with sounds diminished. Patient has no PRN pain medication ordered. paged.
[2018-11-24] MEDS: normal saline 1000ml 1,000 ML IV SCH ×2 (12:15→17:07)
--- NOTE | 2018-11-24 15:32 | NUR ---
PAGER ID: [phone] MESSAGE: [id number], Adalberto Anderson Still c/o 09/17 pain on inspiration. States he has not slept since yesterday d/t pain. Pls. advise. Thanks! Christopher Jerry 1946
[2018-11-24] MEDS ORDERED: levoFLOXACIN 500mg tablet PO ONE (15:35)
[2018-11-24] MEDS: HYDROcodone/acetaminophen 5mg/325mg tablet PO PRN ×2 (15:42→19:47)
[2018-11-24] MEDS ORDERED: PANT40TA4 PO (17:47)
--- NOTE | 2018-11-24 18:00 | NUR ---
Patient in room PCU 3024. I have received report from Christopher RICHEY and had the opportunity to ask questions and assume patient care.
--- NOTE | 2018-11-24 18:04 | NUR ---
PAGER ID: [phone] MESSAGE: [phone] MAASEN SBP ABOVE 170 CONTINUES. PLEASE ADVISE JOHN VAZQUEZ [phone]. NO BP MEDS
[2018-11-24] MEDS ORDERED: hydrALAZINE 20mg/ml inj. IV PRN (18:05)
--- NOTE | 2018-11-24 18:30 | NUR ---
Problems reprioritized. Patient report given, questions answered & plan of care reviewed with Zuleyka RICHEY.
[2018-11-25] MEDS: normal saline 1000ml 1,000 ML IV SCH (01:04)
[2018-11-25] MEDS: HYDROcodone/acetaminophen 5mg/325mg tablet PO PRN ×5 (01:06→19:57)
[2018-11-25 02:00] VITALS: BP 142/94
--- NOTE | 2018-11-25 05:30 | NUR ---
END NOC NOTE Patient had a hard time staying asleep tonight, back pain was waking the patient; [place] was given for pain. Patient was feeling short of breath tonight, gave 2 liters of oxygen and patient stated he felt better; weened him off oxygen back to room air with success, saturations remained above 95%.
[2018-11-25 05:57] LABS: BASOPHILS % (AUTO) 0.4 % (0-1); EOSINOPHILS # (AUTO) 0.2 X10'3 (0-0.9); EOSINOPHILS % (AUTO) 4.7 % (0-6); HEMATOCRIT 33.6 % (42.0-52.0); HEMOGLOBIN 11.4 g/dl (14.0-17.9); LYMPHOCYTES # (AUTO) 1.2 X10'3 (1.1-4.8); LYMPHOCYTES % (AUTO) 22.8 % (21-51); MEAN CORPUSCULAR HEMOGLOBIN 31.1 PG (27.0-31.0); MEAN CORPUSCULAR HGB CONC 33.9 g/dL (33.0-36.5); MEAN CORPUSCULAR VOLUME 91.7 FL (78-98); MEAN PLATELET VOLUME 6.8 FL (7.4-10.4); MONOCYTES # (AUTO) 0.6 X10'3 (0-0.9); NEUTROPHILS # (AUTO) 3.1 X10'3 (1.8-7.7); NEUTROPHILS % (AUTO) 60.1 % (42-75); PLATELET COUNT 205 X10'3 (140-440); RED BLOOD COUNT 3.66 X10'6 (4.70-6.10); RED CELL DISTRIBUTION WIDTH 14.1 % (11.5-14.5); WHITE BLOOD COUNT 5.1 X10'3 (4.5-11.0)
[2018-11-25 06:00] VITALS: BP 147/100
[2018-11-25 06:04] LABS: ALBUMIN 2.5 G/DL (3.4-5.0); ANION GAP 8 (8-16); BLOOD UREA NITROGEN 8 MG/DL (7-18); BUN/CREATININE RATIO 9.4 (5.4-32.0); CALCIUM 8.1 MG/DL (8.5-10.1); CHLORIDE 108 MMOL/L (99-107); CREATININE 0.85 MG/DL (0.60-1.10); GLUCOSE 101 MG/DL (70-104); POTASSIUM 4.2 MMOL/L (3.5-5.1); SODIUM 145 MMOL/L (135-145); TOTAL CARBON DIOXIDE 29.2 MMOL/L (24-32); eGFR > 90 ML/MIN
--- NOTE | 2018-11-25 06:44 | NUR ---
Problems reprioritized. Patient report given, questions answered & plan of care reviewed with Christopher RICHEY.
[2018-11-25] MEDS: enoxaparin 100mg/ml syringe SUBCUT SCH ×2 (08:16→19:01)
[2018-11-25] MEDS: albuterol 2.5 MG/3 ML nebule NEB PRN ×2 (09:26→16:09)
[2018-11-25] MEDS ORDERED: FLU VACC QS2019-20 36MOS UP/PF 60 MCG/0.5 ML SYRINGE IMVAC ONE (10:00)
[2018-11-25 11:00] VITALS: BP 139/96
[2018-11-25] MEDS: carVEDilol 3.125mg tablet PO SCH ×2 (11:13→19:01)
[2018-11-25] MEDS: levoFLOXACIN 500mg tablet PO SCH (11:13)
[2018-11-25] MEDS ORDERED: predniSONE 20 mg tablet PO ONE (12:10)
[2018-11-25 15:00] VITALS: BP 150/106
--- NOTE | 2018-11-25 16:37 | NUR ---
Pt requesting bowel care, notified. PAGER ID: [phone] MESSAGE: [phone] Justin Glover Pt requesting bowel care, FYI. [id number] Rubi Wbeer
[2018-11-25 18:00] VITALS: BP 127/80
--- NOTE | 2018-11-25 18:00 | NUR ---
Problems reprioritized. Patient report given, questions answered & plan of care reviewed with Christopher RICHEY.
--- NOTE | 2018-11-25 18:34 | NUR ---
Problems reprioritized. Patient report given, questions answered & plan of care reviewed with Marj RICHEY.
[2018-11-25] MEDS: lactobacillus rhamnosus 10,000 MMU CELLS/CAPSULE PO SCH (19:24)
[2018-11-25] MEDS: magnesium hydroxide 30ml (MOM) UD suspension PO PRN (19:24)
[2018-11-25 22:00] VITALS: BP 138/80
[2018-11-26] MEDS: HYDROcodone/acetaminophen 5mg/325mg tablet PO PRN ×6 (00:08→22:35)
[2018-11-26 02:00] VITALS: BP 120/88
--- NOTE | 2018-11-26 05:42 | NUR ---
End Noc Note Patient stated "I slept a little", Okay was given every time it was available for Sacrum/back pain that is 09/17. Oxygen was on and off patient tonight, saturations were stable about 90%. Milk of Mag was given for constipation, patient states that he "feels backed up". patient was able to ambulate independently to the bathroom multiple times tonight. Will continue to monitor.
[2018-11-26 06:00] VITALS: BP 127/89
[2018-11-26 06:05] LABS: BASOPHILS % (AUTO) 0.3 % (0-1); EOSINOPHILS # (AUTO) 0.1 X10'3 (0-0.9); EOSINOPHILS % (AUTO) 2.3 % (0-6); HEMATOCRIT 33.3 % (42.0-52.0); HEMOGLOBIN 11.5 g/dl (14.0-17.9); LYMPHOCYTES # (AUTO) 0.9 X10'3 (1.1-4.8); LYMPHOCYTES % (AUTO) 15.5 % (21-51); MEAN CORPUSCULAR HEMOGLOBIN 31.7 PG (27.0-31.0); MEAN CORPUSCULAR HGB CONC 34.4 g/dL (33.0-36.5); MEAN CORPUSCULAR VOLUME 92.1 FL (78-98); MEAN PLATELET VOLUME 6.8 FL (7.4-10.4); MONOCYTES # (AUTO) 0.7 X10'3 (0-0.9); MONOCYTES % (AUTO) 11.2 % (2-12); NEUTROPHILS # (AUTO) 4.1 X10'3 (1.8-7.7); NEUTROPHILS % (AUTO) 70.7 % (42-75); PLATELET COUNT 234 X10'3 (140-440); RED BLOOD COUNT 3.62 X10'6 (4.70-6.10); RED CELL DISTRIBUTION WIDTH 14.1 % (11.5-14.5); WHITE BLOOD COUNT 5.8 X10'3 (4.5-11.0)
[2018-11-26 06:20] LABS: ALBUMIN 2.6 G/DL (3.4-5.0); ANION GAP 5 (8-16); BLOOD UREA NITROGEN 8 MG/DL (7-18); BUN/CREATININE RATIO 8.9 (5.4-32.0); CALCIUM 8.6 MG/DL (8.5-10.1); CHLORIDE 108 MMOL/L (99-107); GLUCOSE 84 MG/DL (70-104); POTASSIUM 3.9 MMOL/L (3.5-5.1); SODIUM 145 MMOL/L (135-145); TOTAL CARBON DIOXIDE 31.6 MMOL/L (24-32); eGFR 86 ML/MIN
--- NOTE | 2018-11-26 06:27 | NUR ---
Problems reprioritized. Patient report given, questions answered & plan of care reviewed with Christopher RICHEY.
--- NOTE | 2018-11-26 06:48 | NUR ---
Patient in room PCU 3024. I have received report from Marj RICHEY and had the opportunity to ask questions and assume patient care.
[2018-11-26] MEDS: lactobacillus rhamnosus 10,000 MMU CELLS/CAPSULE PO SCH ×2 (09:04→19:26)
[2018-11-26] MEDS: predniSONE 20 mg tablet PO SCH (09:04)
[2018-11-26] MEDS: carVEDilol 3.125mg tablet PO SCH ×2 (09:04→19:26)
[2018-11-26] MEDS: enoxaparin 100mg/ml syringe SUBCUT SCH (09:05)
[2018-11-26] MEDS: albuterol 2.5 MG/3 ML nebule NEB PRN (10:15)
[2018-11-26] MEDS: levoFLOXACIN 500mg tablet PO SCH (10:28)
[2018-11-26 11:00] VITALS: BP 109/77
[2018-11-26 15:39] VITALS: BP 138/87
[2018-11-26 18:00] VITALS: BP 102/64
--- NOTE | 2018-11-26 18:00 | NUR ---
Patient in room PCU 3024. I have received report from Christopher RICHEY and had the opportunity to ask questions and assume patient care.
--- NOTE | 2018-11-26 18:52 | NUR ---
Problems reprioritized. Patient report given, questions answered & plan of care reviewed with Marj RICHEY.
[2018-11-26] MEDS: apixaban 5mg tablet PO SCH (19:26)
[2018-11-26] MEDS: magnesium hydroxide 30ml (MOM) UD suspension PO PRN (19:26)
[2018-11-26 22:00] VITALS: BP 129/90
[2018-11-27 02:00] VITALS: BP 146/94
--- NOTE | 2018-11-27 04:24 | NUR ---
Noc Note Patient has been sleeping more tonight. Has been requesting [place] when available for 08/17 pain. Bowel care has been effective tonight. Patient has been feeling improvements in his breathing. Will continue to monitor.
[2018-11-27 05:25] LABS: BASOPHILS % (AUTO) 0.3 % (0-1); EOSINOPHILS # (AUTO) 0.2 X10'3 (0-0.9); EOSINOPHILS % (AUTO) 3.5 % (0-6); HEMATOCRIT 34.6 % (42.0-52.0); LYMPHOCYTES # (AUTO) 1.1 X10'3 (1.1-4.8); LYMPHOCYTES % (AUTO) 21.1 % (21-51); MEAN CORPUSCULAR HEMOGLOBIN 31.6 PG (27.0-31.0); MEAN CORPUSCULAR HGB CONC 34.6 g/dL (33.0-36.5); MEAN CORPUSCULAR VOLUME 91.4 FL (78-98); MEAN PLATELET VOLUME 6.5 FL (7.4-10.4); MONOCYTES # (AUTO) 0.7 X10'3 (0-0.9); MONOCYTES % (AUTO) 12.9 % (2-12); NEUTROPHILS # (AUTO) 3.2 X10'3 (1.8-7.7); NEUTROPHILS % (AUTO) 62.2 % (42-75); PLATELET COUNT 232 X10'3 (140-440); RED BLOOD COUNT 3.78 X10'6 (4.70-6.10); RED CELL DISTRIBUTION WIDTH 13.8 % (11.5-14.5); WHITE BLOOD COUNT 5.2 X10'3 (4.5-11.0)
[2018-11-27 05:47] LABS: ALBUMIN 2.6 G/DL (3.4-5.0); ANION GAP 4 (8-16); BLOOD UREA NITROGEN 8 MG/DL (7-18); BUN/CREATININE RATIO 8.1 (5.4-32.0); CALCIUM 8.8 MG/DL (8.5-10.1); CHLORIDE 107 MMOL/L (99-107); CREATININE 0.99 MG/DL (0.60-1.10); GLUCOSE 89 MG/DL (70-104); POTASSIUM 4.1 MMOL/L (3.5-5.1); SODIUM 143 MMOL/L (135-145); TOTAL CARBON DIOXIDE 32.2 MMOL/L (24-32); eGFR 77 ML/MIN
[2018-11-27] MEDS: HYDROcodone/acetaminophen 5mg/325mg tablet PO PRN ×2 (06:00→10:39)
--- NOTE | 2018-11-27 06:15 | NUR ---
Patient in room PCU 3024a. I have received report from KAIDEN Mcmahan and had the opportunity to ask questions and assume patient care. Patient sleeping in bed at this time. No distress noted. will continue to monitor.
--- NOTE | 2018-11-27 06:42 | NUR ---
Problems reprioritized. Patient report given, questions answered & plan of care reviewed with Elizabeth RICHEY.
[2018-11-27 07:00] VITALS: BP 129/84
[2018-11-27] MEDS: predniSONE 20 mg tablet PO SCH (07:35)
[2018-11-27] MEDS: lactobacillus rhamnosus 10,000 MMU CELLS/CAPSULE PO SCH (07:35)
[2018-11-27] MEDS: carVEDilol 3.125mg tablet PO SCH (07:35)
[2018-11-27] MEDS: apixaban 5mg tablet PO SCH (07:35)
[2018-11-27] MEDS: levoFLOXACIN 500mg tablet PO SCH (10:38)
[2018-11-27 11:00] VITALS: BP 142/87
[2018-11-27] MEDS ORDERED: COR3.125T PO (11:47)
[2018-11-27] MEDS ORDERED: APIX5TAB3 PO (11:47)
[2018-11-27] MEDS ORDERED: FLUT1DIS4 INH (11:47)
[2018-11-27] MEDS ORDERED: LEVO500T89 PO (11:47)
--- NOTE | 2018-11-27 12:58 | NUR ---
Paged Dr. Betancourt regarding discharge medications. PAGER ID: [phone] MESSAGE: [phone] Ramiro Glover- patient stated that you were going to write a rx for [place] before discharge. Just clarifying before patient leaves. Thanks, Elizabeth x [phone]
[2018-11-27] MEDS ORDERED: HYDR-3965 PO (13:31)
--- NOTE | 2018-11-27 15:46 | NUR ---
Patient stable for discharge per MD order. Patient given discharge instructions and education. All questions answered. New medications called into [facility] on [address]. Printed Rx for [place] given to patient. PIV d/c'd catheter intact. Tele monitor removed and returned to [place]. Yellow cab called to transport patient home. Patient transported off unit via wheel chair by nurse machine operator assistant to [facility].
== END 2018-11-27 16:39 | disposition home or self-care (01) | DRG 175 ==
LOC: ER 02:45 → ED HOLD 07:07 → EDBEDREQ 07:36 → PCU 3S 08:49
PROVIDERS: ADMIT Family Medicine; ATTEND Hospitalist
PROC: B32T1ZZ Computerized Tomography (CT Scan) of Left Pulmonary Artery using Low Osmolar Contrast (ICD-10-PCS; principal; 2018-11-24)
PROC: B3201ZZ Computerized Tomography (CT Scan) of Thoracic Aorta using Low Osmolar Contrast (ICD-10-PCS; 2018-11-24)
PROC: B32S1ZZ Computerized Tomography (CT Scan) of Right Pulmonary Artery using Low Osmolar Contrast (ICD-10-PCS; 2018-11-24)
DX: I26.99 Other pulmonary embolism without acute cor pulmonale (principal); J96.01 Acute respiratory failure with hypoxia; J44.0 Chronic obstructive pulmonary disease with (acute) lower respiratory infection; J44.1 Chronic obstructive pulmonary disease with (acute) exacerbation; J20.9 Acute bronchitis, unspecified; G89.29 Other chronic pain; M54.9 Dorsalgia, unspecified; R00.0 Tachycardia, unspecified; R16.0 Hepatomegaly, not elsewhere classified; Z60.2 Problems related to living alone; M25.552 Pain in left hip; K20.9 Esophagitis, unspecified; K59.00 Constipation, unspecified; Z85.841 Personal history of malignant neoplasm of brain; Z79.899 Other long term (current) drug therapy; Z56.0 Unemployment, unspecified; Z79.82 Long term (current) use of aspirin; Z88.8 Allergy status to other drugs, medicaments and biological substances; Z88.2 Allergy status to sulfonamides; Z88.1 Allergy status to other antibiotic agents
CPT/HCPCS: 36415; 71045; 71275; 73502; 76937; 80048; 80053; 81003; 83605; 83735; 84145; 85025; 87040; 87081; 93005; 93971; 94640; 94760; 96372; 99285; G0378; J0360; J1650; J7030; J7512; Q2037; Q9967

== ENCOUNTER 2018-12-01 12:32 | Emergency (ER) | payer MEDICARE, MEDICAID ==
[~2018-12-01] VITALS: Ht 190.5 cm; Wt 88.6 kg
[~2018-12-01 12:32] MED LIST changes: -ALBU18HF2 IH; +ALBU18HF2 INH; -ALBU8.5H8 IH; +APIX5TAB3 PO; -BUDE10.22 INH; +COR3.125T PO; -CYCL-1 PO; +FLUT1DIS4 INH; +HYDR-3965 PO; -IBUP-1985 PO; +LEVO500T89 PO; -OMEP40CA13 PO; -PRED10TA PO; -SUCR1TAB34 PO
[2018-12-01 12:36] VITALS: BP 141/102
[2018-12-01 15:00] LABS: BASOPHILS % (AUTO) 0.4 % (0-1); EOSINOPHILS # (AUTO) 0.1 X10'3 (0-0.9); EOSINOPHILS % (AUTO) 1.6 % (0-6); HEMATOCRIT 37.2 % (42.0-52.0); HEMOGLOBIN 12.5 g/dl (14.0-17.9); LYMPHOCYTES # (AUTO) 0.9 X10'3 (1.1-4.8); MEAN CORPUSCULAR HEMOGLOBIN 30.7 PG (27.0-31.0); MEAN CORPUSCULAR HGB CONC 33.6 g/dL (33.0-36.5); MEAN CORPUSCULAR VOLUME 91.5 FL (78-98); MEAN PLATELET VOLUME 6.8 FL (7.4-10.4); MONOCYTES # (AUTO) 0.7 X10'3 (0-0.9); MONOCYTES % (AUTO) 11.2 % (2-12); NEUTROPHILS # (AUTO) 4.3 X10'3 (1.8-7.7); NEUTROPHILS % (AUTO) 71.8 % (42-75); PLATELET COUNT 284 X10'3 (140-440); RED BLOOD COUNT 4.06 X10'6 (4.70-6.10); RED CELL DISTRIBUTION WIDTH 14.2 % (11.5-14.5)
[2018-12-01] MEDS ORDERED: iohexol 350MG/ML 100ml bottle IV ONE (15:02)
[2018-12-01 15:15] LABS: PARTIAL THROMBOPLASTIN TIME 27 SECONDS (22-32)
[2018-12-01 15:19] LABS: ALANINE AMINOTRANSFERASE 53 U/L (12-78); ALBUMIN/GLOBULIN RATIO 0.9 (1.1-1.5); ALKALINE PHOSPHATASE 159 IU/L (46-116); ANION GAP 6 (8-16); ASPARTATE AMINO TRANSFERASE 24 U/L (10-37); BILIRUBIN,TOTAL 0.4 MG/DL (0.1-1.0); BLOOD UREA NITROGEN 13 MG/DL (7-18); BUN/CREATININE RATIO 11.5 (5.4-32.0); CALCIUM 8.8 MG/DL (8.5-10.1); CHLORIDE 105 MMOL/L (99-107); CREATININE 1.13 MG/DL (0.60-1.10); GLUCOSE 94 MG/DL (70-104); POTASSIUM 4.5 MMOL/L (3.5-5.1); SODIUM 141 MMOL/L (135-145); TOTAL CARBON DIOXIDE 30.2 MMOL/L (24-32); TOTAL PROTEIN 6.5 G/DL (6.4-8.2); eGFR 66 ML/MIN
[2018-12-01] MEDS ORDERED: ipratropium/albuterol 3ml nebule NEB ONE (16:10)
== END 2018-12-01 17:13 | disposition home or self-care (01) ==
LOC: ER 12:34
DX: R06.02 Shortness of breath (principal); J44.9 Chronic obstructive pulmonary disease, unspecified; G89.29 Other chronic pain; Z56.0 Unemployment, unspecified; Z85.841 Personal history of malignant neoplasm of brain; Z98.890 Other specified postprocedural states; Z88.8 Allergy status to other drugs, medicaments and biological substances; Z79.899 Other long term (current) drug therapy
CPT/HCPCS: 36415; 71045; 71275; 80053; 83880; 85025; 85610; 85730; 93005; 94640; 94760; 99284; Q9967

== ENCOUNTER 2018-12-03 10:22 | Emergency (ER) | payer MEDICARE, MEDICAID ==
[~2018-12-03] VITALS: Ht 190.5 cm; Wt 84.8 kg
[2018-12-03] MEDS ORDERED: lactulose 20gm/30ml cup PO ONE (11:40)
[2018-12-03] MEDS ORDERED: POLY17PO10 PO (12:13)
[2018-12-03 12:34] VITALS: BP 138/89
--- NOTE | 2018-12-03 12:35 | NUR ---
PT STATES, I DONT HAVE THE URGE TO POOP YET
== END 2018-12-03 12:42 | disposition home or self-care (01) ==
LOC: ER 10:23
DX: K59.00 Constipation, unspecified (principal); J44.9 Chronic obstructive pulmonary disease, unspecified; G89.29 Other chronic pain; Z98.890 Other specified postprocedural states; Z56.0 Unemployment, unspecified; Z88.8 Allergy status to other drugs, medicaments and biological substances; Z88.2 Allergy status to sulfonamides; Z79.899 Other long term (current) drug therapy; Z79.2 Long term (current) use of antibiotics
CPT/HCPCS: 74018; 99284

== ENCOUNTER 2018-12-14 06:42 | Emergency (ER) | payer MEDICARE, MEDICAID ==
[~2018-12-14] VITALS: Ht 190.5 cm; Wt 84.4 kg
[~2018-12-14 06:42] MED LIST changes: +POLY17PO10 PO
[2018-12-14 07:09] LABS: CLARITY,URINE CLEAR (Clear); COLOR,URINE YELLOW (Yellow); GLUCOSE, URINE NEGATIVE (Neg); KETONES,URINE NEGATIVE (Neg); LEUKOCYTE ESTERASE ,URINE NEGATIVE (Neg); NITRITES, URINE NEGATIVE (Neg); OCCULT BLOOD,URINE NEGATIVE (Neg); PROTEIN,URINE NEGATIVE (Neg); UROBILINOGEN,URINE 0.2 E.U/dL (0.2-1.0)
[2018-12-14 07:12] LABS: UA COLLECTION TYPE CLN CATCH MIDSTREAM
[2018-12-14 07:30] LABS: PARTIAL THROMBOPLASTIN TIME 27 SECONDS (22-32)
[2018-12-14 07:33] LABS: ALANINE AMINOTRANSFERASE 31 U/L (12-78); ALBUMIN 3.3 G/DL (3.4-5.0); ALKALINE PHOSPHATASE 158 IU/L (46-116); ANION GAP 10 (8-16); ASPARTATE AMINO TRANSFERASE 20 U/L (10-37); BILIRUBIN,TOTAL 0.4 MG/DL (0.1-1.0); BLOOD UREA NITROGEN 14 MG/DL (7-18); BUN/CREATININE RATIO 13.3 (5.4-32.0); CALCIUM 8.9 MG/DL (8.5-10.1); CHLORIDE 106 MMOL/L (99-107); CREATININE 1.05 MG/DL (0.60-1.10); GLUCOSE 119 MG/DL (70-104); POTASSIUM 3.7 MMOL/L (3.5-5.1); SODIUM 142 MMOL/L (135-145); TOTAL CARBON DIOXIDE 26.5 MMOL/L (24-32); TOTAL PROTEIN 6.6 G/DL (6.4-8.2); eGFR 72 ML/MIN
[2018-12-14 07:34] LABS: BASOPHILS % (AUTO) 0.8 % (0-1); EOSINOPHILS # (AUTO) 0.2 X10'3 (0-0.9); EOSINOPHILS % (AUTO) 3.7 % (0-6); HEMOGLOBIN 13.6 g/dl (14.0-17.9); LYMPHOCYTES # (AUTO) 0.9 X10'3 (1.1-4.8); LYMPHOCYTES % (AUTO) 18.5 % (21-51); MEAN CORPUSCULAR HEMOGLOBIN 29.9 PG (27.0-31.0); MEAN CORPUSCULAR HGB CONC 33.2 g/dL (33.0-36.5); MEAN CORPUSCULAR VOLUME 89.9 FL (78-98); MEAN PLATELET VOLUME 7.4 FL (7.4-10.4); MONOCYTES # (AUTO) 0.5 X10'3 (0-0.9); MONOCYTES % (AUTO) 10.7 % (2-12); NEUTROPHILS # (AUTO) 3.1 X10'3 (1.8-7.7); NEUTROPHILS % (AUTO) 66.3 % (42-75); PLATELET COUNT 370 X10'3 (140-440); RED BLOOD COUNT 4.56 X10'6 (4.70-6.10); RED CELL DISTRIBUTION WIDTH 13.6 % (11.5-14.5); WHITE BLOOD COUNT 4.7 X10'3 (4.5-11.0)
[2018-12-14] MEDS ORDERED: magnesium citrate 296ml oral solution PO ONE (08:25)
[2018-12-14] MEDS ORDERED: glycerin ADULT rectal suppository RC ONE (08:25)
[2018-12-14 08:53] LABS: D-DIMER 0.37 MG/L FEU (0-0.50)
[2018-12-14 10:29] VITALS: BP 131/67
[2018-12-14 11:48] LABS: OCCULT BLOOD STOOL NEGATIVE (Neg)
== END 2018-12-14 10:31 | disposition home or self-care (01) ==
LOC: ER 06:42
DX: R10.32 Left lower quadrant pain (principal); R05 Cough; K59.00 Constipation, unspecified; I10 Essential (primary) hypertension; J44.9 Chronic obstructive pulmonary disease, unspecified; G89.29 Other chronic pain; F20.9 Schizophrenia, unspecified; F10.99 Alcohol use, unspecified with unspecified alcohol-induced disorder; Z85.841 Personal history of malignant neoplasm of brain; Z60.2 Problems related to living alone; Z56.0 Unemployment, unspecified; Z88.8 Allergy status to other drugs, medicaments and biological substances; Z88.2 Allergy status to sulfonamides; Z79.899 Other long term (current) drug therapy; Y90.9 Presence of alcohol in blood, level not specified
CPT/HCPCS: 36415; 71045; 74018; 80053; 81003; 82272; 84145; 84484; 85025; 85379; 85610; 85730; 93005; 99284

== ENCOUNTER 2018-12-24 05:21 | Emergency (ER) | payer MEDICARE, MEDICAID ==
[~2018-12-24] VITALS: Ht 190.5 cm; Wt 86.4 kg
[2018-12-24] MEDS ORDERED: normal saline 1000ML IV soln IVB ONE (05:25)
[2018-12-24 06:07] LABS: HEMOGLOBIN 14.3 g/dl (14.0-17.9); WHITE BLOOD COUNT 4.8 X10'3 (4.5-11.0)
[2018-12-24 06:09] LABS: BASOPHILS % (AUTO) 0.5 % (0-1); EOSINOPHILS # (AUTO) 0.2 X10'3 (0-0.9); EOSINOPHILS % (AUTO) 4.4 % (0-6); HEMATOCRIT 42.6 % (42.0-52.0); LYMPHOCYTES # (AUTO) 1.2 X10'3 (1.1-4.8); MEAN CORPUSCULAR HEMOGLOBIN 29.2 PG (27.0-31.0); MEAN CORPUSCULAR HGB CONC 33.5 g/dL (33.0-36.5); MEAN CORPUSCULAR VOLUME 87.1 FL (78-98); MEAN PLATELET VOLUME 7.6 FL (7.4-10.4); MONOCYTES # (AUTO) 0.5 X10'3 (0-0.9); MONOCYTES % (AUTO) 9.4 % (2-12); NEUTROPHILS # (AUTO) 2.9 X10'3 (1.8-7.7); NEUTROPHILS % (AUTO) 60.7 % (42-75); PLATELET COUNT 281 X10'3 (140-440); RED BLOOD COUNT 4.88 X10'6 (4.70-6.10); RED CELL DISTRIBUTION WIDTH 13.4 % (11.5-14.5)
[2018-12-24 06:22] LABS: ALANINE AMINOTRANSFERASE 29 U/L (12-78); ALBUMIN 3.4 G/DL (3.4-5.0); ALBUMIN/GLOBULIN RATIO 0.9 (1.1-1.5); ALKALINE PHOSPHATASE 164 IU/L (46-116); ANION GAP 11 (8-16); ASPARTATE AMINO TRANSFERASE 30 U/L (10-37); BILIRUBIN,TOTAL 0.3 MG/DL (0.1-1.0); BLOOD UREA NITROGEN 15 MG/DL (7-18); BUN/CREATININE RATIO 13.2 (5.4-32.0); CALCIUM 8.8 MG/DL (8.5-10.1); CHLORIDE 105 MMOL/L (99-107); CREATININE 1.14 MG/DL (0.60-1.10); GLUCOSE 114 MG/DL (70-104); POTASSIUM 4.2 MMOL/L (3.5-5.1); SODIUM 141 MMOL/L (135-145); eGFR 66 ML/MIN
[2018-12-24 06:29] LABS: MAGNESIUM 1.6 MG/DL (1.5-2.4)
[2018-12-24 07:02] VITALS: BP 150/92
== END 2018-12-24 07:04 | disposition home or self-care (01) ==
LOC: ER 05:21
DX: E86.0 Dehydration (principal); R06.00 Dyspnea, unspecified; R00.0 Tachycardia, unspecified; I10 Essential (primary) hypertension; J44.9 Chronic obstructive pulmonary disease, unspecified; G89.29 Other chronic pain; Z56.0 Unemployment, unspecified; Z87.891 Personal history of nicotine dependence; Z85.841 Personal history of malignant neoplasm of brain; Z98.890 Other specified postprocedural states; Z88.8 Allergy status to other drugs, medicaments and biological substances; Z88.1 Allergy status to other antibiotic agents; Z79.899 Other long term (current) drug therapy
CPT/HCPCS: 36415; 71045; 80053; 83735; 83880; 84484; 85025; 85379; 85610; 93005; 96360; 99284; J7030

== ENCOUNTER 2018-12-26 11:57 | Emergency (ER) | payer MEDICARE, MEDICAID ==
[~2018-12-26] VITALS: Ht 190.5 cm; Wt 88.0 kg
[2018-12-26 12:31] LABS: BASOPHILS % (AUTO) 0.8 % (0-1); EOSINOPHILS % (AUTO) 0.8 % (0-6); HEMATOCRIT 37.7 % (42.0-52.0); HEMOGLOBIN 12.6 g/dl (14.0-17.9); LYMPHOCYTES # (AUTO) 0.8 X10'3 (1.1-4.8); LYMPHOCYTES % (AUTO) 14.6 % (21-51); MEAN CORPUSCULAR HEMOGLOBIN 29.4 PG (27.0-31.0); MEAN CORPUSCULAR HGB CONC 33.4 g/dL (33.0-36.5); MEAN PLATELET VOLUME 7.3 FL (7.4-10.4); MONOCYTES # (AUTO) 0.4 X10'3 (0-0.9); MONOCYTES % (AUTO) 6.9 % (2-12); NEUTROPHILS # (AUTO) 4.4 X10'3 (1.8-7.7); NEUTROPHILS % (AUTO) 76.9 % (42-75); PLATELET COUNT 253 X10'3 (140-440); RED BLOOD COUNT 4.28 X10'6 (4.70-6.10); RED CELL DISTRIBUTION WIDTH 13.6 % (11.5-14.5); WHITE BLOOD COUNT 5.7 X10'3 (4.5-11.0)
[2018-12-26] MEDS ORDERED: dexamethasone sod phosphate 10mg/ml inj IV STA ×2 (12:42→12:59)
[2018-12-26] MEDS ORDERED: ipratropium/albuterol 3ml nebule NEB ONE (12:45)
[2018-12-26 12:46] LABS: ALANINE AMINOTRANSFERASE 30 U/L (12-78); ALBUMIN 3.1 G/DL (3.4-5.0); ALKALINE PHOSPHATASE 146 IU/L (46-116); ANION GAP 16 (8-16); ASPARTATE AMINO TRANSFERASE 29 U/L (10-37); BILIRUBIN,TOTAL 0.2 MG/DL (0.1-1.0); BLOOD UREA NITROGEN 14 MG/DL (7-18); BUN/CREATININE RATIO 13.6 (5.4-32.0); CALCIUM 8.5 MG/DL (8.5-10.1); CHLORIDE 102 MMOL/L (99-107); CREATININE 1.03 MG/DL (0.60-1.10); GLUCOSE 81 MG/DL (70-104); POTASSIUM 4.1 MMOL/L (3.5-5.1); SODIUM 139 MMOL/L (135-145); TOTAL CARBON DIOXIDE 21.4 MMOL/L (24-32); TOTAL PROTEIN 6.1 G/DL (6.4-8.2); eGFR 74 ML/MIN
[2018-12-26 12:51] LABS: D-DIMER 0.61 MG/L FEU (0-0.50); PARTIAL THROMBOPLASTIN TIME 26 SECONDS (22-32)
[2018-12-26] MEDS ORDERED: iohexol 350MG/ML 100ml bottle IV ONE (13:07)
[2018-12-26] MEDS ORDERED: OMEP20CA11 PO (14:42)
[2018-12-26] MEDS ORDERED: DOXY100C43 PO (14:42)
[2018-12-26] MEDS ORDERED: PRED20TA PO (14:42)
[2018-12-26] MEDS ORDERED: ALBU8HFA PO (14:42)
[2018-12-26 14:56] VITALS: BP 138/94
== END 2018-12-26 14:58 | disposition home or self-care (01) ==
LOC: ER 11:57
DX: J44.1 Chronic obstructive pulmonary disease with (acute) exacerbation (principal); J20.9 Acute bronchitis, unspecified; K20.9 Esophagitis, unspecified; I10 Essential (primary) hypertension; G89.29 Other chronic pain; F20.9 Schizophrenia, unspecified; Z79.899 Other long term (current) drug therapy; Z88.2 Allergy status to sulfonamides; Z88.8 Allergy status to other drugs, medicaments and biological substances; Z79.2 Long term (current) use of antibiotics; Z98.890 Other specified postprocedural states; Z60.2 Problems related to living alone; Z56.0 Unemployment, unspecified
CPT/HCPCS: 36415; 71045; 71275; 80053; 83880; 84439; 84443; 84484; 85025; 85379; 85610; 85730; 93005; 94640; 96374; 99283; J1100; Q9967

== ENCOUNTER 2018-12-31 08:31 | Emergency (ER) | payer MEDICARE, MEDICAID ==
[~2018-12-31] VITALS: Ht 190.5 cm; Wt 86.4 kg
[~2018-12-31 08:31] MED LIST changes: +ALBU8HFA PO; +DOXY100C43 PO; -HYDR-3965 PO; +OMEP20CA11 PO; +PRED20TA PO
[2018-12-31] MEDS ORDERED: normal saline 1000ML IV soln IVB ONE (08:50)
[2018-12-31] MEDS ORDERED: ipratropium/albuterol 3ml nebule NEB ONE (08:50)
[2018-12-31 09:04] LABS: BASOPHILS % (AUTO) 0.3 % (0-1); EOSINOPHILS % (AUTO) 0.3 % (0-6); HEMATOCRIT 42.3 % (42.0-52.0); LYMPHOCYTES # (AUTO) 0.5 X10'3 (1.1-4.8); LYMPHOCYTES % (AUTO) 10.1 % (21-51); MEAN CORPUSCULAR HEMOGLOBIN 29.1 PG (27.0-31.0); MEAN CORPUSCULAR HGB CONC 33.1 g/dL (33.0-36.5); MEAN CORPUSCULAR VOLUME 87.9 FL (78-98); MEAN PLATELET VOLUME 7.4 FL (7.4-10.4); MONOCYTES # (AUTO) 0.2 X10'3 (0-0.9); MONOCYTES % (AUTO) 3.6 % (2-12); NEUTROPHILS # (AUTO) 4.5 X10'3 (1.8-7.7); NEUTROPHILS % (AUTO) 85.7 % (42-75); PLATELET COUNT 245 X10'3 (140-440); RED BLOOD COUNT 4.82 X10'6 (4.70-6.10); RED CELL DISTRIBUTION WIDTH 13.9 % (11.5-14.5); WHITE BLOOD COUNT 5.3 X10'3 (4.5-11.0)
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
[2018-12-31 09:12] LABS: ANION GAP 10 (8-16); CHLORIDE 99 MMOL/L (99-107); GLUCOSE 195 MG/DL (70-104); POTASSIUM 3.9 MMOL/L (3.5-5.1); SODIUM 137 MMOL/L (135-145); TOTAL CARBON DIOXIDE 28.4 MMOL/L (24-32)
[2018-12-31 09:13] LABS: ALANINE AMINOTRANSFERASE 41 U/L (12-78); ALBUMIN 3.6 G/DL (3.4-5.0); ALBUMIN/GLOBULIN RATIO 1.1 (1.1-1.5); ALKALINE PHOSPHATASE 133 IU/L (46-116); ASPARTATE AMINO TRANSFERASE 21 U/L (10-37); BILIRUBIN,TOTAL 0.3 MG/DL (0.1-1.0); BLOOD UREA NITROGEN 15 MG/DL (7-18); BUN/CREATININE RATIO 12.1 (5.4-32.0); CALCIUM 8.6 MG/DL (8.5-10.1); CREATININE 1.24 MG/DL (0.60-1.10); TOTAL PROTEIN 6.8 G/DL (6.4-8.2); eGFR 60 ML/MIN
[2018-12-31 09:20] LABS: MAGNESIUM 1.8 MG/DL (1.5-2.4)
[2018-12-31 10:23] VITALS: BP 146/80
== END 2018-12-31 10:25 | disposition home or self-care (01) ==
LOC: ER 08:32
DX: J44.9 Chronic obstructive pulmonary disease, unspecified (principal); I10 Essential (primary) hypertension; G89.29 Other chronic pain; F20.9 Schizophrenia, unspecified; F10.99 Alcohol use, unspecified with unspecified alcohol-induced disorder; Z60.2 Problems related to living alone; Z56.0 Unemployment, unspecified; Z88.2 Allergy status to sulfonamides; Z88.8 Allergy status to other drugs, medicaments and biological substances; Z79.2 Long term (current) use of antibiotics; Z79.899 Other long term (current) drug therapy; Z86.711 Personal history of pulmonary embolism; Z98.890 Other specified postprocedural states; Y90.9 Presence of alcohol in blood, level not specified
CPT/HCPCS: 36415; 71045; 80053; 83735; 83880; 84484; 85025; 93005; 94640; 99284; J7030; 94760

== ENCOUNTER 2019-01-18 14:52 | Emergency (ER) | payer MEDICARE, MEDICAID ==
[~2019-01-18] VITALS: Ht 190.5 cm; Wt 85.0 kg
[~2019-01-18 14:52] MED LIST changes: -DOXY100C43 PO; +OMEP-297 PO; -OMEP20CA11 PO; -POLY17PO10 PO
[2019-01-18] MEDS ORDERED: normal saline 1000ML IV soln IVB ONE (16:15)
[2019-01-18 16:29] LABS: BASOPHILS % (AUTO) 0.6 % (0-1); EOSINOPHILS # (AUTO) 0.1 X10'3 (0-0.9); EOSINOPHILS % (AUTO) 2.4 % (0-6); HEMATOCRIT 39.9 % (42.0-52.0); HEMOGLOBIN 13.4 g/dl (14.0-17.9); LYMPHOCYTES # (AUTO) 1.5 X10'3 (1.1-4.8); LYMPHOCYTES % (AUTO) 27.1 % (21-51); MEAN CORPUSCULAR HEMOGLOBIN 28.8 PG (27.0-31.0); MEAN CORPUSCULAR HGB CONC 33.5 g/dL (33.0-36.5); MEAN CORPUSCULAR VOLUME 86.1 FL (78-98); MEAN PLATELET VOLUME 7.3 FL (7.4-10.4); MONOCYTES # (AUTO) 0.3 X10'3 (0-0.9); MONOCYTES % (AUTO) 6.4 % (2-12); NEUTROPHILS # (AUTO) 3.4 X10'3 (1.8-7.7); NEUTROPHILS % (AUTO) 63.5 % (42-75); PLATELET COUNT 377 X10'3 (140-440); RED BLOOD COUNT 4.64 X10'6 (4.70-6.10); RED CELL DISTRIBUTION WIDTH 13.9 % (11.5-14.5); WHITE BLOOD COUNT 5.4 X10'3 (4.5-11.0)
[2019-01-18 16:40] LABS: ALANINE AMINOTRANSFERASE 89 U/L (12-78); ALBUMIN 3.4 G/DL (3.4-5.0); ALKALINE PHOSPHATASE 124 IU/L (46-116); ANION GAP 11 (8-16); ASPARTATE AMINO TRANSFERASE 49 U/L (10-37); BILIRUBIN,TOTAL 0.2 MG/DL (0.1-1.0); BLOOD UREA NITROGEN 23 MG/DL (7-18); CALCIUM 8.3 MG/DL (8.5-10.1); CHLORIDE 102 MMOL/L (99-107); CREATININE 1.64 MG/DL (0.60-1.10); ETHANOL 0.135 GM/DL (0.0-0.010); GLUCOSE 140 MG/DL (70-104); POTASSIUM 4.1 MMOL/L (3.5-5.1); SODIUM 137 MMOL/L (135-145); TOTAL CARBON DIOXIDE 23.8 MMOL/L (24-32); TOTAL PROTEIN 6.7 G/DL (6.4-8.2); eGFR 43 ML/MIN
[2019-01-18 18:06] VITALS: BP 133/83
== END 2019-01-18 18:08 | disposition home or self-care (01) ==
LOC: ER 14:53
DX: F10.920 Alcohol use, unspecified with intoxication, uncomplicated (principal); E86.0 Dehydration; J44.9 Chronic obstructive pulmonary disease, unspecified; I10 Essential (primary) hypertension; G89.29 Other chronic pain; F20.9 Schizophrenia, unspecified; F10.99 Alcohol use, unspecified with unspecified alcohol-induced disorder; Z86.711 Personal history of pulmonary embolism; Z98.890 Other specified postprocedural states; Z60.2 Problems related to living alone; Z56.0 Unemployment, unspecified; Z88.8 Allergy status to other drugs, medicaments and biological substances; Z88.2 Allergy status to sulfonamides; Z79.899 Other long term (current) drug therapy; Y90.9 Presence of alcohol in blood, level not specified
CPT/HCPCS: 36415; 80053; 80320; 85025; 93005; 96360; 99284; J7030

== ENCOUNTER 2019-01-20 06:44 | Emergency (ER) | payer MEDICARE, MEDICAID ==
[~2019-01-20] VITALS: Ht 190.5 cm; Wt 86.4 kg
[2019-01-20 08:23] VITALS: BP 138/93
--- NOTE | 2019-01-20 09:07 | NUR ---
LAURA SCHERER CALLED FOR TRANSPORT HOME
== END 2019-01-20 09:05 | disposition home or self-care (01) ==
LOC: ER 06:44
DX: R06.02 Shortness of breath (principal); J44.9 Chronic obstructive pulmonary disease, unspecified; I10 Essential (primary) hypertension; G89.29 Other chronic pain; F20.9 Schizophrenia, unspecified; F10.99 Alcohol use, unspecified with unspecified alcohol-induced disorder; Z86.711 Personal history of pulmonary embolism; Z85.841 Personal history of malignant neoplasm of brain; Z98.890 Other specified postprocedural states; Z60.2 Problems related to living alone; Z56.0 Unemployment, unspecified; Z88.2 Allergy status to sulfonamides; Z88.8 Allergy status to other drugs, medicaments and biological substances; Z79.899 Other long term (current) drug therapy; Y90.9 Presence of alcohol in blood, level not specified
CPT/HCPCS: 71046; 93005; 99283

== ENCOUNTER 2019-01-20 09:23 | Emergency (ER) | payer MEDICARE, MEDICAID ==
--- NOTE | 2019-01-20 09:27 | NUR ---
pt called into triage, stated he has a taxi coming and wants to leave now, declined to be triaged
== END 2019-01-20 09:31 | disposition left against medical advice (07) ==
LOC: ER 09:23
DX: R06.02 Shortness of breath (principal); Z53.21 Procedure and treatment not carried out due to patient leaving prior to being seen by health care provider

== ENCOUNTER 2019-01-22 17:06 | Emergency (ER) | payer MEDICARE, MEDICAID ==
[~2019-01-22] VITALS: Ht 190.5 cm; Wt 74.0 kg
[2019-01-22] MEDS ORDERED: DOXY100C76 (17:22)
[2019-01-22 17:24] LABS: BASOPHILS % (AUTO) 0.4 % (0-1); EOSINOPHILS # (AUTO) 0.1 X10'3 (0-0.9); HEMATOCRIT 38.7 % (42.0-52.0); HEMOGLOBIN 13.1 g/dl (14.0-17.9); LYMPHOCYTES # (AUTO) 1.2 X10'3 (1.1-4.8); LYMPHOCYTES % (AUTO) 19.1 % (21-51); MEAN CORPUSCULAR HEMOGLOBIN 28.7 PG (27.0-31.0); MEAN CORPUSCULAR HGB CONC 33.8 g/dL (33.0-36.5); MEAN CORPUSCULAR VOLUME 84.8 FL (78-98); MEAN PLATELET VOLUME 6.9 FL (7.4-10.4); MONOCYTES # (AUTO) 0.6 X10'3 (0-0.9); MONOCYTES % (AUTO) 9.8 % (2-12); NEUTROPHILS # (AUTO) 4.2 X10'3 (1.8-7.7); NEUTROPHILS % (AUTO) 69.7 % (42-75); PLATELET COUNT 327 X10'3 (140-440); RED BLOOD COUNT 4.56 X10'6 (4.70-6.10)
[2019-01-22 17:39] LABS: PARTIAL THROMBOPLASTIN TIME 27 SECONDS (22-32)
[2019-01-22 17:41] LABS: ALANINE AMINOTRANSFERASE 51 U/L (12-78); ALBUMIN 3.8 G/DL (3.4-5.0); ALBUMIN/GLOBULIN RATIO 1.3 (1.1-1.5); ALKALINE PHOSPHATASE 125 IU/L (46-116); ANION GAP 6 (8-16); ASPARTATE AMINO TRANSFERASE 29 U/L (10-37); BILIRUBIN,TOTAL 0.4 MG/DL (0.1-1.0); BLOOD UREA NITROGEN 8 MG/DL (7-18); BUN/CREATININE RATIO 7.1 (5.4-32.0); CALCIUM 8.9 MG/DL (8.5-10.1); CHLORIDE 102 MMOL/L (99-107); CREATININE 1.12 MG/DL (0.60-1.10); GLUCOSE 112 MG/DL (70-104); POTASSIUM 3.9 MMOL/L (3.5-5.1); SODIUM 138 MMOL/L (135-145); TOTAL CARBON DIOXIDE 30.4 MMOL/L (24-32); TOTAL PROTEIN 6.8 G/DL (6.4-8.2); eGFR 67 ML/MIN
[2019-01-22 18:25] VITALS: BP 135/93
== END 2019-01-22 18:27 | disposition home or self-care (01) ==
LOC: ER 17:06
DX: R06.02 Shortness of breath (principal); J44.9 Chronic obstructive pulmonary disease, unspecified; I10 Essential (primary) hypertension; G89.29 Other chronic pain; F20.9 Schizophrenia, unspecified; F10.99 Alcohol use, unspecified with unspecified alcohol-induced disorder; Z86.711 Personal history of pulmonary embolism; Z60.2 Problems related to living alone; Z56.0 Unemployment, unspecified; Z98.890 Other specified postprocedural states; Z88.8 Allergy status to other drugs, medicaments and biological substances; Z88.2 Allergy status to sulfonamides; Z79.01 Long term (current) use of anticoagulants; Z79.899 Other long term (current) drug therapy; Y90.9 Presence of alcohol in blood, level not specified
CPT/HCPCS: 36415; 71045; 80053; 84484; 85025; 85610; 85730; 93005; 99284

== ENCOUNTER → 2019-01-31 | Emergency (ER) | payer MEDICARE, MEDICAID ==
[~2019-01-31] VITALS: Ht 190.5 cm; Wt 86.4 kg
[~2019-01-31] MED LIST changes: -ALBU8HFA PO; +DOXY100C76; -LEVO500T89 PO; -PANT40TA4 PO; -PRED20TA PO; +ipratropium/albuterol 3ml nebule NEB ONE
[2019-01-31 07:08] VITALS: BP 148/101
== END | disposition home or self-care (01) ==
LOC: ER 07:04
DX: J44.1 Chronic obstructive pulmonary disease with (acute) exacerbation (principal); I10 Essential (primary) hypertension; G89.29 Other chronic pain; F20.9 Schizophrenia, unspecified; F10.99 Alcohol use, unspecified with unspecified alcohol-induced disorder; Z86.711 Personal history of pulmonary embolism; Z98.890 Other specified postprocedural states; Z60.2 Problems related to living alone; Z56.0 Unemployment, unspecified; Z88.8 Allergy status to other drugs, medicaments and biological substances; Z88.2 Allergy status to sulfonamides; Z79.899 Other long term (current) drug therapy; Y90.9 Presence of alcohol in blood, level not specified
CPT/HCPCS: 71045; 93005; 94640; 94760; 99283

== ENCOUNTER 2019-02-03 12:03 | Emergency (ER) | payer MEDICARE, MEDICAID ==
[~2019-02-03] VITALS: Ht 190.5 cm; Wt 88.6 kg
[~2019-02-03 12:03] MED LIST changes: -ipratropium/albuterol 3ml nebule NEB ONE
[2019-02-03 12:07] VITALS: BP 129/93
== END 2019-02-03 14:25 | disposition home or self-care (01) ==
LOC: ER 12:04
DX: K21.9 Gastro-esophageal reflux disease without esophagitis (principal); I10 Essential (primary) hypertension; J44.9 Chronic obstructive pulmonary disease, unspecified; G89.29 Other chronic pain; F20.9 Schizophrenia, unspecified; Z60.2 Problems related to living alone; Z56.0 Unemployment, unspecified; Z88.2 Allergy status to sulfonamides; Z88.1 Allergy status to other antibiotic agents; Z88.8 Allergy status to other drugs, medicaments and biological substances; Z79.01 Long term (current) use of anticoagulants; Z79.899 Other long term (current) drug therapy
CPT/HCPCS: 93005; 99283

== ENCOUNTER 2019-02-08 07:32 | Emergency (ER) | payer MEDICARE, MEDICAID ==
[~2019-02-08] VITALS: Ht 190.5 cm; Wt 88.6 kg
[2019-02-08] MEDS ORDERED: ipratropium/albuterol 3ml nebule NEB ONE (08:30)
[2019-02-08] MEDS ORDERED: CYCL-1 PO (09:02)
[2019-02-08 09:03] VITALS: BP 116/78
== END 2019-02-08 09:38 | disposition home or self-care (01) ==
LOC: ER 07:33
DX: R06.02 Shortness of breath (principal); M62.838 Other muscle spasm; I10 Essential (primary) hypertension; J44.9 Chronic obstructive pulmonary disease, unspecified; G89.29 Other chronic pain; Z86.711 Personal history of pulmonary embolism; Z56.0 Unemployment, unspecified; Z98.890 Other specified postprocedural states; Z85.841 Personal history of malignant neoplasm of brain; Z88.8 Allergy status to other drugs, medicaments and biological substances; Z88.1 Allergy status to other antibiotic agents
CPT/HCPCS: 71045; 93005; 94640; 94760; 99283; 99284

== ENCOUNTER 2019-02-19 11:25 | Emergency (ER) | payer MEDICARE, MEDICAID ==
[~2019-02-19] VITALS: Ht 190.5 cm; Wt 87.0 kg
[~2019-02-19 11:25] MED LIST changes: +CYCL-1 PO; -OMEP-297 PO; +OMEP20CA15 PO
[2019-02-19] MEDS ORDERED: ibuprofen tablet 400 MG TABLET PO ONE (12:15)
[2019-02-19 14:05] VITALS: BP 142/102
== END 2019-02-19 14:06 | disposition home or self-care (01) ==
LOC: ER 11:26
DX: R07.89 Other chest pain (principal); I10 Essential (primary) hypertension; J44.9 Chronic obstructive pulmonary disease, unspecified; G89.29 Other chronic pain; Z86.711 Personal history of pulmonary embolism; Z56.0 Unemployment, unspecified; Z98.890 Other specified postprocedural states; Z88.8 Allergy status to other drugs, medicaments and biological substances; Z88.1 Allergy status to other antibiotic agents
CPT/HCPCS: 99283

== ENCOUNTER 2019-02-28 12:57 | Emergency (ER) | payer MEDICARE, MEDICAID ==
[~2019-02-28] VITALS: Ht 190.5 cm; Wt 99.0 kg
[2019-02-28 13:17] VITALS: BP 114/87
[2019-02-28] MEDS ORDERED: carvedilol 6.25mg tablet PO STA (13:52)
[2019-02-28] MEDS ORDERED: CARV3.122 PO (13:59)
[2019-02-28] MEDS ORDERED: APIX5TAB3 PO (14:01)
[2019-02-28] MEDS ORDERED: AZIT500T PO (14:45)
== END 2019-02-28 15:12 | disposition home or self-care (01) ==
LOC: ER 12:58
DX: J06.9 Acute upper respiratory infection, unspecified (principal); J44.9 Chronic obstructive pulmonary disease, unspecified; I10 Essential (primary) hypertension; G89.29 Other chronic pain; F20.9 Schizophrenia, unspecified; F10.99 Alcohol use, unspecified with unspecified alcohol-induced disorder; Z86.711 Personal history of pulmonary embolism; Z98.890 Other specified postprocedural states; Z60.2 Problems related to living alone; Z56.0 Unemployment, unspecified; Z88.8 Allergy status to other drugs, medicaments and biological substances; Z88.2 Allergy status to sulfonamides; Z79.899 Other long term (current) drug therapy; Y90.9 Presence of alcohol in blood, level not specified
CPT/HCPCS: 71045; 93005; 99283

== ENCOUNTER 2019-03-03 15:18 | Emergency (ER) | payer MEDICARE, MEDICAID ==
[~2019-03-03] VITALS: Ht 190.5 cm; Wt 80.0 kg
[~2019-03-03 15:18] MED LIST changes: +AZIT500T PO; +CARV3.122 PO
[2019-03-03] MEDS ORDERED: apixaban 2.5mg tablet PO ONE (15:45)
[2019-03-03] MEDS ORDERED: apixaban 2.5mg tablet PO SCH (15:45)
[2019-03-03] MEDS ORDERED: carVEDilol 3.125mg tablet PO ONE (16:30)
[2019-03-03 16:49] VITALS: BP 126/96
[2019-03-03] MEDS ORDERED: carVEDilol 3.125mg tablet PO SCH (20:00)
== END 2019-03-03 16:52 | disposition home or self-care (01) ==
LOC: ER 15:18
DX: R06.02 Shortness of breath (principal); Z91.14 Patient's other noncompliance with medication regimen; I10 Essential (primary) hypertension; J44.9 Chronic obstructive pulmonary disease, unspecified; G89.29 Other chronic pain; Z56.0 Unemployment, unspecified; Z86.711 Personal history of pulmonary embolism; Z85.841 Personal history of malignant neoplasm of brain; Z98.890 Other specified postprocedural states; Z88.8 Allergy status to other drugs, medicaments and biological substances; Z79.2 Long term (current) use of antibiotics; Z79.899 Other long term (current) drug therapy
CPT/HCPCS: 93005; 99284

== ENCOUNTER 2019-03-26 10:42 | Emergency (ER) | payer MEDICARE, MEDICAID ==
[~2019-03-26] VITALS: Ht 190.5 cm; Wt 86.3 kg
[~2019-03-26 10:42] MED LIST changes: -AZIT500T PO
[2019-03-26 11:03] VITALS: BP 135/99
[2019-03-26] MEDS ORDERED: iohexol 350MG/ML 100ml bottle IV ONE (11:18)
[2019-03-26 12:04] LABS: BASOPHILS % (AUTO) 0.4 % (0-1); EOSINOPHILS # (AUTO) 0.1 X10'3 (0-0.9); EOSINOPHILS % (AUTO) 1.8 % (0-6); HEMOGLOBIN 12.9 g/dl (14.0-17.9); LYMPHOCYTES # (AUTO) 0.9 X10'3 (1.1-4.8); LYMPHOCYTES % (AUTO) 18.6 % (21-51); MEAN CORPUSCULAR HEMOGLOBIN 27.2 PG (27.0-31.0); MEAN CORPUSCULAR HGB CONC 33.1 g/dL (33.0-36.5); MEAN CORPUSCULAR VOLUME 82.2 FL (78-98); MEAN PLATELET VOLUME 7.3 FL (7.4-10.4); MONOCYTES # (AUTO) 0.3 X10'3 (0-0.9); MONOCYTES % (AUTO) 5.8 % (2-12); NEUTROPHILS # (AUTO) 3.7 X10'3 (1.8-7.7); NEUTROPHILS % (AUTO) 73.4 % (42-75); PLATELET COUNT 310 X10'3 (140-440); RED BLOOD COUNT 4.74 X10'6 (4.70-6.10); RED CELL DISTRIBUTION WIDTH 15.7 % (11.5-14.5)
[2019-03-26 12:16] LABS: ALANINE AMINOTRANSFERASE 23 U/L (12-78); ALBUMIN 3.2 G/DL (3.4-5.0); ALBUMIN/GLOBULIN RATIO 1.1 (1.1-1.5); ALKALINE PHOSPHATASE 117 IU/L (46-116); ANION GAP 7 (8-16); ASPARTATE AMINO TRANSFERASE 23 U/L (10-37); BILIRUBIN,TOTAL 0.5 MG/DL (0.1-1.0); BLOOD UREA NITROGEN 13 MG/DL (7-18); CALCIUM 8.5 MG/DL (8.5-10.1); CHLORIDE 101 MMOL/L (99-107); CREATININE 1.08 MG/DL (0.60-1.10); GLUCOSE 130 MG/DL (70-104); SODIUM 135 MMOL/L (135-145); TOTAL CARBON DIOXIDE 27.3 MMOL/L (24-32); eGFR 70 ML/MIN
[2019-03-26 12:20] LABS: TROPONIN I < 0.04 NG/ML (0.0-0.05)
== END 2019-03-26 13:18 | disposition home or self-care (01) ==
LOC: ER 10:42
DX: R06.02 Shortness of breath (principal); R00.0 Tachycardia, unspecified; I10 Essential (primary) hypertension; J44.9 Chronic obstructive pulmonary disease, unspecified; G89.29 Other chronic pain; Z56.0 Unemployment, unspecified; Z98.890 Other specified postprocedural states; Z86.711 Personal history of pulmonary embolism; Z88.8 Allergy status to other drugs, medicaments and biological substances; Z88.1 Allergy status to other antibiotic agents
CPT/HCPCS: 36415; 71275; 80053; 84484; 85025; 93005; 99285; Q9967

== ENCOUNTER 2019-04-01 13:39 | Emergency (ER) | payer MEDICARE, MEDICAID ==
[~2019-04-01] VITALS: Ht 188 cm; Wt 86.3 kg
[2019-04-01] MEDS ORDERED: aspirin 81mg tab.chew PO ONE (15:15)
[2019-04-01 15:47] LABS: BASOPHILS % (AUTO) 0.4 % (0-1); EOSINOPHILS # (AUTO) 0.1 X10'3 (0-0.9); HEMATOCRIT 39.2 % (42.0-52.0); HEMOGLOBIN 13.1 g/dl (14.0-17.9); LYMPHOCYTES # (AUTO) 0.9 X10'3 (1.1-4.8); MEAN CORPUSCULAR HEMOGLOBIN 27.9 PG (27.0-31.0); MEAN CORPUSCULAR HGB CONC 33.4 g/dL (33.0-36.5); MEAN CORPUSCULAR VOLUME 83.6 FL (78-98); MEAN PLATELET VOLUME 7.2 FL (7.4-10.4); MONOCYTES # (AUTO) 0.5 X10'3 (0-0.9); MONOCYTES % (AUTO) 11.3 % (2-12); NEUTROPHILS % (AUTO) 66.3 % (42-75); PLATELET COUNT 243 X10'3 (140-440); RED BLOOD COUNT 4.69 X10'6 (4.70-6.10); RED CELL DISTRIBUTION WIDTH 15.8 % (11.5-14.5); WHITE BLOOD COUNT 4.5 X10'3 (4.5-11.0)
[2019-04-01 16:02] LABS: ALANINE AMINOTRANSFERASE 41 U/L (12-78); ALBUMIN 3.4 G/DL (3.4-5.0); ALKALINE PHOSPHATASE 116 IU/L (46-116); ANION GAP 6 (8-16); ASPARTATE AMINO TRANSFERASE 33 U/L (10-37); BILIRUBIN,TOTAL 0.2 MG/DL (0.1-1.0); BLOOD UREA NITROGEN 17 MG/DL (7-18); BUN/CREATININE RATIO 15.3 (5.4-32.0); CALCIUM 8.8 MG/DL (8.5-10.1); CHLORIDE 105 MMOL/L (99-107); CREATININE 1.11 MG/DL (0.60-1.10); GLUCOSE 107 MG/DL (70-104); POTASSIUM 4.5 MMOL/L (3.5-5.1); SODIUM 140 MMOL/L (135-145); TOTAL CARBON DIOXIDE 28.7 MMOL/L (24-32); TOTAL PROTEIN 6.7 G/DL (6.4-8.2); eGFR 68 ML/MIN
[2019-04-01 16:10] LABS: MAGNESIUM 1.8 MG/DL (1.5-2.4)
[2019-04-01 16:58] VITALS: BP 136/93
== END 2019-04-01 17:00 | disposition home or self-care (01) ==
LOC: ER 13:40
DX: R07.89 Other chest pain (principal); R11.0 Nausea; I10 Essential (primary) hypertension; J44.9 Chronic obstructive pulmonary disease, unspecified; G89.29 Other chronic pain; F20.9 Schizophrenia, unspecified; Z86.711 Personal history of pulmonary embolism; Z98.890 Other specified postprocedural states; Z60.2 Problems related to living alone; Z56.0 Unemployment, unspecified; Z88.1 Allergy status to other antibiotic agents; Z88.2 Allergy status to sulfonamides; Z79.01 Long term (current) use of anticoagulants; Z79.899 Other long term (current) drug therapy
CPT/HCPCS: 36415; 71045; 80053; 83735; 83880; 84484; 85025; 93005; 99285

== ENCOUNTER 2019-04-10 14:45 | Emergency (ER) | payer MEDICARE, MEDICAID ==
[~2019-04-10] VITALS: Ht 188 cm; Wt 88.0 kg
[2019-04-10 16:04] LABS: BASOPHILS % (AUTO) 0.4 % (0-1); EOSINOPHILS # (AUTO) 0.2 X10'3 (0-0.9); EOSINOPHILS % (AUTO) 3.4 % (0-6); HEMATOCRIT 41.1 % (42.0-52.0); HEMOGLOBIN 13.7 g/dl (14.0-17.9); LYMPHOCYTES # (AUTO) 1.1 X10'3 (1.1-4.8); LYMPHOCYTES % (AUTO) 19.4 % (21-51); MEAN CORPUSCULAR HEMOGLOBIN 27.9 PG (27.0-31.0); MEAN CORPUSCULAR HGB CONC 33.5 g/dL (33.0-36.5); MEAN CORPUSCULAR VOLUME 83.3 FL (78-98); MEAN PLATELET VOLUME 8.2 FL (7.4-10.4); MONOCYTES # (AUTO) 0.5 X10'3 (0-0.9); MONOCYTES % (AUTO) 9.6 % (2-12); NEUTROPHILS # (AUTO) 3.8 X10'3 (1.8-7.7); NEUTROPHILS % (AUTO) 67.2 % (42-75); PLATELET COUNT 250 X10'3 (140-440); RED BLOOD COUNT 4.93 X10'6 (4.70-6.10); RED CELL DISTRIBUTION WIDTH 15.7 % (11.5-14.5); WHITE BLOOD COUNT 5.7 X10'3 (4.5-11.0)
[2019-04-10 16:34] LABS: ALANINE AMINOTRANSFERASE 39 U/L (12-78); ALBUMIN 3.6 G/DL (3.4-5.0); ALKALINE PHOSPHATASE 101 IU/L (46-116); ANION GAP 7 (8-16); ASPARTATE AMINO TRANSFERASE 29 U/L (10-37); BILIRUBIN,TOTAL 0.1 MG/DL (0.1-1.0); BLOOD UREA NITROGEN 16 MG/DL (7-18); BUN/CREATININE RATIO 13.2 (5.4-32.0); CALCIUM 9.8 MG/DL (8.5-10.1); CHLORIDE 105 MMOL/L (99-107); CREATININE 1.21 MG/DL (0.60-1.10); GLUCOSE 106 MG/DL (70-104); SODIUM 142 MMOL/L (135-145); TOTAL CARBON DIOXIDE 30.5 MMOL/L (24-32); TOTAL PROTEIN 7.1 G/DL (6.4-8.2); eGFR 61 ML/MIN
[2019-04-10 16:48] LABS: POTASSIUM 4.7 MMOL/L (3.5-5.1)
[2019-04-10 19:05] VITALS: BP 139/97
== END 2019-04-10 19:06 | disposition home or self-care (01) ==
LOC: ER 14:45
DX: R07.9 Chest pain, unspecified (principal); I10 Essential (primary) hypertension; J44.9 Chronic obstructive pulmonary disease, unspecified; I26.99 Other pulmonary embolism without acute cor pulmonale; G89.29 Other chronic pain; M54.9 Dorsalgia, unspecified; F20.9 Schizophrenia, unspecified; Z98.890 Other specified postprocedural states; Z85.841 Personal history of malignant neoplasm of brain; Z72.89 Other problems related to lifestyle; Z56.0 Unemployment, unspecified; Z79.01 Long term (current) use of anticoagulants; Z79.899 Other long term (current) drug therapy
CPT/HCPCS: 36415; 71045; 80053; 84484; 85025; 93005; 99285

== ENCOUNTER 2019-05-06 13:45 | Emergency (ER) | payer MEDICARE, MEDICAID ==
[~2019-05-06] VITALS: Ht 188 cm; Wt 89.1 kg
[2019-05-06 14:32] VITALS: BP 161/98
== END 2019-05-06 14:48 | disposition home or self-care (01) ==
LOC: ER 13:45
DX: R06.02 Shortness of breath (principal); I10 Essential (primary) hypertension; J44.9 Chronic obstructive pulmonary disease, unspecified; G89.29 Other chronic pain; F20.9 Schizophrenia, unspecified; Z86.711 Personal history of pulmonary embolism; Z98.890 Other specified postprocedural states; Z60.2 Problems related to living alone; Z56.0 Unemployment, unspecified; Z88.8 Allergy status to other drugs, medicaments and biological substances; Z79.01 Long term (current) use of anticoagulants; Z79.899 Other long term (current) drug therapy
CPT/HCPCS: 93005; 99284

== ENCOUNTER 2019-07-19 21:33 | Emergency (ER) | payer MEDICARE, MEDICAID ==
[~2019-07-19] VITALS: Ht 190.5 cm; Wt 86.4 kg
[2019-07-19 22:06] LABS: BASOPHILS % (AUTO) 0.4 % (0-1); EOSINOPHILS # (AUTO) 0.1 X10'3 (0-0.9); EOSINOPHILS % (AUTO) 1.6 % (0-6); HEMATOCRIT 38.8 % (42.0-52.0); HEMOGLOBIN 12.7 g/dl (14.0-17.9); LYMPHOCYTES # (AUTO) 1.1 X10'3 (1.1-4.8); LYMPHOCYTES % (AUTO) 16.1 % (21-51); MEAN CORPUSCULAR HEMOGLOBIN 27.7 PG (27.0-31.0); MEAN CORPUSCULAR HGB CONC 32.8 g/dL (33.0-36.5); MEAN CORPUSCULAR VOLUME 84.4 FL (78-98); MEAN PLATELET VOLUME 7.1 FL (7.4-10.4); MONOCYTES # (AUTO) 0.6 X10'3 (0-0.9); MONOCYTES % (AUTO) 8.7 % (2-12); NEUTROPHILS % (AUTO) 73.2 % (42-75); PLATELET COUNT 223 X10'3 (140-440); RED CELL DISTRIBUTION WIDTH 15.6 % (11.5-14.5); WHITE BLOOD COUNT 6.9 X10'3 (4.5-11.0)
[2019-07-19 22:15] LABS: ALANINE AMINOTRANSFERASE 32 U/L (12-78); ALBUMIN 3.2 G/DL (3.4-5.0); ALBUMIN/GLOBULIN RATIO 1.1 (1.1-1.5); ALKALINE PHOSPHATASE 135 IU/L (46-116); ANION GAP 10 (8-16); ASPARTATE AMINO TRANSFERASE 27 U/L (10-37); BILIRUBIN,TOTAL 0.5 MG/DL (0.1-1.0); BLOOD UREA NITROGEN 13 MG/DL (7-18); BUN/CREATININE RATIO 9.2 (5.4-32.0); CALCIUM 8.1 MG/DL (8.5-10.1); CHLORIDE 109 MMOL/L (99-107); CREATININE 1.41 MG/DL (0.60-1.10); GLUCOSE 107 MG/DL (70-104); POTASSIUM 4.4 MMOL/L (3.5-5.1); SODIUM 145 MMOL/L (135-145); TOTAL PROTEIN 6.2 G/DL (6.4-8.2); eGFR 51 ML/MIN
[2019-07-19] MEDS ORDERED: normal saline 1000ml 1,000 ML IV ONE (22:32)
[2019-07-19] MEDS ORDERED: nitroGLYCERIN 0.2mg/hour patch TD ONE (22:35)
[2019-07-19] MEDS ORDERED: morphine 4 MG/ML inj SYRINge IV ONE (22:35)
[2019-07-19] MEDS ORDERED: normal saline 1000ML IV soln IVB ONE (22:35)
[2019-07-19 22:37] LABS: D-DIMER 0.83 MG/L FEU (0-0.50)
[2019-07-19 22:44] LABS: ETHANOL < 0.010 GM/DL (0.0-0.010); LIPASE 84 U/L (73-393); MAGNESIUM 1.5 MG/DL (1.5-2.4)
[2019-07-19] MEDS ORDERED: iohexol 350MG/ML 100ml bottle IV ONE (22:49)
[2019-07-20] MEDS ORDERED: APIX5TAB3 PO (01:01)
[2019-07-20] MEDS ORDERED: COR3.125T PO (01:01)
[2019-07-20] MEDS ORDERED: OMEP20CA15 PO (01:01)
[2019-07-20] MEDS ORDERED: carVEDilol 3.125mg tablet PO STA (01:02)
[2019-07-20] MEDS ORDERED: pantoprazole 40mg Tablet.DR PO STA (01:02)
[2019-07-20] MEDS ORDERED: apixaban 5mg tablet PO SCH (01:05)
[2019-07-20] MEDS ORDERED: apixaban 5mg tablet PO ONE (01:05)
[2019-07-20 01:36] VITALS: BP 156/103
== END 2019-07-20 01:37 | disposition home or self-care (01) ==
LOC: ER 21:33
DX: R07.89 Other chest pain (principal); I10 Essential (primary) hypertension; J44.9 Chronic obstructive pulmonary disease, unspecified; G89.29 Other chronic pain; F20.9 Schizophrenia, unspecified; Z86.711 Personal history of pulmonary embolism; Z98.890 Other specified postprocedural states; Z72.89 Other problems related to lifestyle; Z56.0 Unemployment, unspecified; Z60.2 Problems related to living alone; Z88.8 Allergy status to other drugs, medicaments and biological substances; Z79.01 Long term (current) use of anticoagulants; Z79.899 Other long term (current) drug therapy
CPT/HCPCS: 36415; 71045; 71275; 80053; 80320; 83690; 83735; 84484; 85025; 85379; 93005; 96374; 99285; J2270; J7030; Q9967

== ENCOUNTER 2019-07-23 16:32 | Emergency (ER) | payer MEDICARE, MEDICAID ==
[~2019-07-23] VITALS: Ht 177.8 cm; Wt 78.0 kg
[~2019-07-23 16:32] MED LIST changes: -ALBU18HF2 INH; -CARV3.122 PO; -DOXY100C76
[2019-07-23] MEDS ORDERED: HYDROcodone/acetaminophen 10/325mg tab PO ONE (17:45)
--- NOTE | 2019-07-23 17:58 | NUR ---
Contacted pt's family, [facility] will pick pt up.
[2019-07-23 18:04] VITALS: BP 139/95
== END 2019-07-23 18:06 | disposition home or self-care (01) ==
LOC: ER 16:32
DX: R07.89 Other chest pain (principal); I10 Essential (primary) hypertension; G89.29 Other chronic pain; J44.9 Chronic obstructive pulmonary disease, unspecified; F20.9 Schizophrenia, unspecified; Z98.890 Other specified postprocedural states; Z72.89 Other problems related to lifestyle; Z56.0 Unemployment, unspecified; Z60.2 Problems related to living alone; Z86.711 Personal history of pulmonary embolism; Z88.8 Allergy status to other drugs, medicaments and biological substances; Z79.82 Long term (current) use of aspirin; Z79.899 Other long term (current) drug therapy
CPT/HCPCS: 93005; 99283

== ENCOUNTER 2019-08-23 18:38 | Emergency (ER) | payer OTHER, MEDICARE, MEDICAID ==
[~2019-08-23] VITALS: Ht 185.4 cm; Wt 84.1 kg
[2019-08-23] MEDS ORDERED: normal saline 1000ML IV soln IVB ONE ×2 (18:50→20:15)
[2019-08-23 19:18] LABS: BASOPHILS % (AUTO) 0.7 % (0-1); D-DIMER 0.27 MG/L FEU (0-0.50); EOSINOPHILS # (AUTO) 0.2 X10'3 (0-0.9); EOSINOPHILS % (AUTO) 3.7 % (0-6); HEMATOCRIT 40.7 % (42.0-52.0); HEMOGLOBIN 13.5 g/dl (14.0-17.9); LYMPHOCYTES # (AUTO) 1.5 X10'3 (1.1-4.8); LYMPHOCYTES % (AUTO) 31.3 % (21-51); MEAN CORPUSCULAR HEMOGLOBIN 28.4 PG (27.0-31.0); MEAN CORPUSCULAR HGB CONC 33.3 g/dL (33.0-36.5); MEAN CORPUSCULAR VOLUME 85.4 FL (78-98); MEAN PLATELET VOLUME 7.3 FL (7.4-10.4); MONOCYTES # (AUTO) 0.4 X10'3 (0-0.9); MONOCYTES % (AUTO) 9.1 % (2-12); NEUTROPHILS # (AUTO) 2.7 X10'3 (1.8-7.7); NEUTROPHILS % (AUTO) 55.2 % (42-75); PLATELET COUNT 276 X10'3 (140-440); RED BLOOD COUNT 4.76 X10'6 (4.70-6.10); RED CELL DISTRIBUTION WIDTH 15.2 % (11.5-14.5); WHITE BLOOD COUNT 4.9 X10'3 (4.5-11.0)
[2019-08-23 19:23] LABS: ALANINE AMINOTRANSFERASE 215 U/L (12-78); ALBUMIN 3.2 G/DL (3.4-5.0); ALKALINE PHOSPHATASE 116 IU/L (46-116); ANION GAP 15 (8-16); ASPARTATE AMINO TRANSFERASE 100 U/L (10-37); BILIRUBIN,TOTAL 0.2 MG/DL (0.1-1.0); BLOOD UREA NITROGEN 20 MG/DL (7-18); CALCIUM 8.7 MG/DL (8.5-10.1); CHLORIDE 104 MMOL/L (99-107); CREATININE 1.33 MG/DL (0.60-1.10); GLUCOSE 155 MG/DL (70-104); POTASSIUM 3.9 MMOL/L (3.5-5.1); SODIUM 141 MMOL/L (135-145); TOTAL CARBON DIOXIDE 22.5 MMOL/L (24-32); TOTAL PROTEIN 6.5 G/DL (6.4-8.2); eGFR 55 ML/MIN
[2019-08-23] MEDS ORDERED: iohexol 350MG/ML 100ml bottle IV ONE (19:26)
[2019-08-23 21:07] VITALS: BP 120/86
== END 2019-08-23 21:11 | disposition home or self-care (01) ==
LOC: ER 18:38
DX: I10 Essential (primary) hypertension (principal); R07.89 Other chest pain; R06.02 Shortness of breath; J44.9 Chronic obstructive pulmonary disease, unspecified; G89.29 Other chronic pain; F20.9 Schizophrenia, unspecified; F17.200 Nicotine dependence, unspecified, uncomplicated; Z86.711 Personal history of pulmonary embolism; Z85.841 Personal history of malignant neoplasm of brain; Z98.890 Other specified postprocedural states; Z72.89 Other problems related to lifestyle; Z60.2 Problems related to living alone; Z56.0 Unemployment, unspecified; Z88.8 Allergy status to other drugs, medicaments and biological substances; Z79.899 Other long term (current) drug therapy
CPT/HCPCS: 36415; 71045; 71275; 80053; 83880; 84484; 85025; 85379; 93005; 99285; J7030; Q9967

== ENCOUNTER 2019-08-28 01:40 | Emergency (ER) | payer OTHER, MEDICARE, MEDICAID ==
[~2019-08-28] VITALS: Ht 190.5 cm; Wt 88.0 kg
[2019-08-28] MEDS ORDERED: aspirin 81mg tab.chew PO ONE (02:05)
[2019-08-28 02:32] LABS: ALANINE AMINOTRANSFERASE 66 U/L (12-78); ALBUMIN 3.6 G/DL (3.4-5.0); ALBUMIN/GLOBULIN RATIO 1.1 (1.1-1.5); ALKALINE PHOSPHATASE 117 IU/L (46-116); ANION GAP 10 (8-16); ASPARTATE AMINO TRANSFERASE 21 U/L (10-37); BILIRUBIN,TOTAL 0.3 MG/DL (0.1-1.0); BLOOD UREA NITROGEN 24 MG/DL (7-18); BUN/CREATININE RATIO 16.9 (5.4-32.0); CALCIUM 8.2 MG/DL (8.5-10.1); CHLORIDE 108 MMOL/L (99-107); CREATININE 1.42 MG/DL (0.60-1.10); GLUCOSE 126 MG/DL (70-104); POTASSIUM 4.3 MMOL/L (3.5-5.1); SODIUM 143 MMOL/L (135-145); TOTAL CARBON DIOXIDE 25.2 MMOL/L (24-32); eGFR 51 ML/MIN
[2019-08-28 02:34] LABS: BASOPHILS % (AUTO) 0.8 % (0-1); EOSINOPHILS # (AUTO) 0.1 X10'3 (0-0.9); EOSINOPHILS % (AUTO) 2.3 % (0-6); HEMATOCRIT 42.2 % (42.0-52.0); HEMOGLOBIN 14.1 g/dl (14.0-17.9); LYMPHOCYTES # (AUTO) 1.3 X10'3 (1.1-4.8); LYMPHOCYTES % (AUTO) 22.7 % (21-51); MEAN CORPUSCULAR HEMOGLOBIN 28.2 PG (27.0-31.0); MEAN CORPUSCULAR HGB CONC 33.4 g/dL (33.0-36.5); MEAN CORPUSCULAR VOLUME 84.5 FL (78-98); MEAN PLATELET VOLUME 7.6 FL (7.4-10.4); MONOCYTES # (AUTO) 0.4 X10'3 (0-0.9); MONOCYTES % (AUTO) 6.4 % (2-12); NEUTROPHILS % (AUTO) 67.8 % (42-75); PLATELET COUNT 280 X10'3 (140-440); RED CELL DISTRIBUTION WIDTH 15.1 % (11.5-14.5); WHITE BLOOD COUNT 5.9 X10'3 (4.5-11.0)
[2019-08-28 02:55] VITALS: BP 133/93
== END 2019-08-28 02:56 | disposition home or self-care (01) ==
LOC: ER 01:40
DX: R07.89 Other chest pain (principal); R00.0 Tachycardia, unspecified; I10 Essential (primary) hypertension; J44.9 Chronic obstructive pulmonary disease, unspecified; G89.29 Other chronic pain; F20.9 Schizophrenia, unspecified; Z98.890 Other specified postprocedural states; Z72.89 Other problems related to lifestyle; Z60.2 Problems related to living alone; Z56.0 Unemployment, unspecified; Z88.8 Allergy status to other drugs, medicaments and biological substances; Z79.01 Long term (current) use of anticoagulants; Z79.899 Other long term (current) drug therapy; Z86.711 Personal history of pulmonary embolism
CPT/HCPCS: 36415; 71045; 80053; 84484; 85025; 93005; 99285

== ENCOUNTER 2019-09-13 08:17 | Emergency (ER) | payer OTHER, MEDICARE, MEDICAID ==
[~2019-09-13] VITALS: Ht 190.5 cm; Wt 88.6 kg
[2019-09-13 08:45] LABS: BASOPHILS % (AUTO) 0.3 % (0-1); EOSINOPHILS # (AUTO) 0.1 X10'3 (0-0.9); EOSINOPHILS % (AUTO) 1.3 % (0-6); HEMATOCRIT 40.1 % (42.0-52.0); HEMOGLOBIN 13.2 g/dl (14.0-17.9); LYMPHOCYTES # (AUTO) 0.7 X10'3 (1.1-4.8); LYMPHOCYTES % (AUTO) 12.8 % (21-51); MEAN CORPUSCULAR HGB CONC 32.9 g/dL (33.0-36.5); MEAN CORPUSCULAR VOLUME 85.1 FL (78-98); MONOCYTES # (AUTO) 0.7 X10'3 (0-0.9); MONOCYTES % (AUTO) 12.2 % (2-12); NEUTROPHILS # (AUTO) 3.9 X10'3 (1.8-7.7); NEUTROPHILS % (AUTO) 73.4 % (42-75); PLATELET COUNT 240 X10'3 (140-440); RED BLOOD COUNT 4.71 X10'6 (4.70-6.10); RED CELL DISTRIBUTION WIDTH 15.8 % (11.5-14.5); WHITE BLOOD COUNT 5.4 X10'3 (4.5-11.0)
[2019-09-13 09:02] LABS: ALANINE AMINOTRANSFERASE 29 U/L (12-78); ALBUMIN 3.5 G/DL (3.4-5.0); ALKALINE PHOSPHATASE 128 IU/L (46-116); ANION GAP 8 (8-16); ASPARTATE AMINO TRANSFERASE 22 U/L (10-37); BILIRUBIN,TOTAL 0.7 MG/DL (0.1-1.0); BLOOD UREA NITROGEN 15 MG/DL (7-18); CALCIUM 9.1 MG/DL (8.5-10.1); CHLORIDE 102 MMOL/L (99-107); CREATININE 1.15 MG/DL (0.60-1.10); GLUCOSE 123 MG/DL (70-104); SODIUM 138 MMOL/L (135-145); TOTAL CARBON DIOXIDE 27.8 MMOL/L (24-32); TOTAL PROTEIN 7.1 G/DL (6.4-8.2); eGFR 65 ML/MIN
[2019-09-13 09:39] VITALS: BP 137/97
== END 2019-09-13 09:42 | disposition home or self-care (01) ==
LOC: ER 08:18
DX: I10 Essential (primary) hypertension (principal); R07.89 Other chest pain; R06.02 Shortness of breath; I25.2 Old myocardial infarction; J44.9 Chronic obstructive pulmonary disease, unspecified; G89.29 Other chronic pain; F20.9 Schizophrenia, unspecified; Z86.711 Personal history of pulmonary embolism; Z85.841 Personal history of malignant neoplasm of brain; Z98.890 Other specified postprocedural states; Z72.89 Other problems related to lifestyle; Z60.2 Problems related to living alone; Z56.0 Unemployment, unspecified; Z88.8 Allergy status to other drugs, medicaments and biological substances; Z79.899 Other long term (current) drug therapy
CPT/HCPCS: 36415; 71045; 80053; 83880; 84484; 85025; 93005; 99285

== ENCOUNTER 2019-09-26 18:37 | Emergency (ER) | payer OTHER, MEDICARE, MEDICAID ==
[~2019-09-26] VITALS: Ht 190.5 cm; Wt 90.0 kg
[2019-09-26 19:09] LABS: BASOPHILS % (AUTO) 0.2 % (0-1); EOSINOPHILS # (AUTO) 0.1 X10'3 (0-0.9); HEMATOCRIT 42.3 % (42.0-52.0); HEMOGLOBIN 13.9 g/dl (14.0-17.9); LYMPHOCYTES # (AUTO) 1.2 X10'3 (1.1-4.8); LYMPHOCYTES % (AUTO) 25.2 % (21-51); MEAN CORPUSCULAR HEMOGLOBIN 28.4 PG (27.0-31.0); MEAN CORPUSCULAR HGB CONC 32.8 g/dL (33.0-36.5); MEAN CORPUSCULAR VOLUME 86.8 FL (78-98); MEAN PLATELET VOLUME 7.2 FL (7.4-10.4); MONOCYTES # (AUTO) 0.5 X10'3 (0-0.9); MONOCYTES % (AUTO) 10.1 % (2-12); NEUTROPHILS % (AUTO) 62.5 % (42-75); PLATELET COUNT 285 X10'3 (140-440); RED BLOOD COUNT 4.88 X10'6 (4.70-6.10); RED CELL DISTRIBUTION WIDTH 15.8 % (11.5-14.5); WHITE BLOOD COUNT 4.8 X10'3 (4.5-11.0)
[2019-09-26 19:15] LABS: ALANINE AMINOTRANSFERASE 27 U/L (12-78); ALBUMIN 3.4 G/DL (3.4-5.0); ALBUMIN/GLOBULIN RATIO 1.1 (1.1-1.5); ALKALINE PHOSPHATASE 121 IU/L (46-116); ANION GAP 12 (8-16); ASPARTATE AMINO TRANSFERASE 27 U/L (10-37); BILIRUBIN,TOTAL 0.7 MG/DL (0.1-1.0); BLOOD UREA NITROGEN 16 MG/DL (7-18); BUN/CREATININE RATIO 13.2 (5.4-32.0); CALCIUM 8.7 MG/DL (8.5-10.1); CHLORIDE 106 MMOL/L (99-107); CREATININE 1.21 MG/DL (0.60-1.10); GLUCOSE 120 MG/DL (70-104); POTASSIUM 3.9 MMOL/L (3.5-5.1); SODIUM 142 MMOL/L (135-145); TOTAL CARBON DIOXIDE 24.4 MMOL/L (24-32); TOTAL PROTEIN 6.6 G/DL (6.4-8.2); eGFR 61 ML/MIN
[2019-09-26 19:43] VITALS: BP 133/94
== END 2019-09-26 19:47 | disposition home or self-care (01) ==
LOC: ER 18:38
DX: R06.02 Shortness of breath (principal); R07.89 Other chest pain; I10 Essential (primary) hypertension; I25.2 Old myocardial infarction; J44.9 Chronic obstructive pulmonary disease, unspecified; G89.29 Other chronic pain; F20.9 Schizophrenia, unspecified; Z86.711 Personal history of pulmonary embolism; Z85.841 Personal history of malignant neoplasm of brain; Z98.890 Other specified postprocedural states; Z72.89 Other problems related to lifestyle; Z60.2 Problems related to living alone; Z56.0 Unemployment, unspecified; Z88.8 Allergy status to other drugs, medicaments and biological substances; Z79.899 Other long term (current) drug therapy
CPT/HCPCS: 36415; 71045; 80053; 83880; 84484; 85025; 93005; 99285

== ENCOUNTER 2020-02-13 17:23 | Emergency (ER) | payer OTHER, MEDICARE, MEDICAID ==
[~2020-02-13] VITALS: Ht 190.5 cm; Wt 88.6 kg
[2020-02-13] MEDS ORDERED: aspirin 81mg tab.chew PO ONE (18:10)
[2020-02-13 18:55] LABS: BASOPHILS % (AUTO) 0.5 % (0-1); EOSINOPHILS % (AUTO) 0.5 % (0-6); HEMATOCRIT 45.6 % (42.0-52.0); HEMOGLOBIN 15.3 g/dl (14.0-17.9); LYMPHOCYTES # (AUTO) 0.9 X10'3 (1.1-4.8); LYMPHOCYTES % (AUTO) 16.1 % (21-51); MEAN CORPUSCULAR HEMOGLOBIN 29.2 PG (27.0-31.0); MEAN CORPUSCULAR HGB CONC 33.5 g/dL (33.0-36.5); MEAN CORPUSCULAR VOLUME 87.1 FL (78-98); MEAN PLATELET VOLUME 7.4 FL (7.4-10.4); MONOCYTES # (AUTO) 0.4 X10'3 (0-0.9); MONOCYTES % (AUTO) 6.4 % (2-12); NEUTROPHILS # (AUTO) 4.5 X10'3 (1.8-7.7); NEUTROPHILS % (AUTO) 76.5 % (42-75); PLATELET COUNT 260 X10'3 (140-440); RED BLOOD COUNT 5.23 X10'6 (4.70-6.10); RED CELL DISTRIBUTION WIDTH 13.2 % (11.5-14.5); WHITE BLOOD COUNT 5.9 X10'3 (4.5-11.0)
[2020-02-13 19:11] LABS: ALANINE AMINOTRANSFERASE 49 U/L (12-78); ALBUMIN 3.6 G/DL (3.4-5.0); ALKALINE PHOSPHATASE 149 IU/L (46-116); ANION GAP 10 (8-16); ASPARTATE AMINO TRANSFERASE 41 U/L (10-37); BILIRUBIN,TOTAL 0.8 MG/DL (0.1-1.0); BLOOD UREA NITROGEN 25 MG/DL (7-18); BUN/CREATININE RATIO 15.7 (5.4-32.0); CALCIUM 9.2 MG/DL (8.5-10.1); CHLORIDE 104 MMOL/L (99-107); CREATININE 1.59 MG/DL (0.60-1.10); GLUCOSE 140 MG/DL (70-104); POTASSIUM 4.2 MMOL/L (3.5-5.1); SODIUM 137 MMOL/L (135-145); TOTAL CARBON DIOXIDE 22.8 MMOL/L (24-32); TOTAL PROTEIN 7.2 G/DL (6.4-8.2); eGFR 45 ML/MIN
[2020-02-13] MEDS ORDERED: normal saline 1000ml 1,000 ML IV ONE (20:35)
[2020-02-13 20:51] LABS: D-DIMER 0.46 MG/L FEU (0-0.50)
[2020-02-13 22:58] VITALS: BP 160/90
--- NOTE | 2020-02-13 23:45 | NUR ---
Pt ready to Discharge. Pt cab came but communication to KAIDEN Wasserman was not recieved, pt missed cab. Another cab called.
--- NOTE | 2020-02-14 00:05 | NUR ---
ETA on cab was 1 hour. Pt resting in room.
--- NOTE | 2020-02-14 02:03 | NUR ---
Pt wanting to leave, cab not available, eta not given from [facility].
== END 2020-02-14 02:11 | disposition home or self-care (01) ==
LOC: ER 17:23
DX: R07.89 Other chest pain (principal); R05 Cough; Z20.828 Contact with and (suspected) exposure to other viral communicable diseases; I10 Essential (primary) hypertension; I25.2 Old myocardial infarction; J44.9 Chronic obstructive pulmonary disease, unspecified; G89.29 Other chronic pain; F20.9 Schizophrenia, unspecified; Z85.3 Personal history of malignant neoplasm of breast; Z86.711 Personal history of pulmonary embolism; Z98.890 Other specified postprocedural states; Z72.89 Other problems related to lifestyle; Z60.2 Problems related to living alone; Z56.0 Unemployment, unspecified; Z88.8 Allergy status to other drugs, medicaments and biological substances; Z79.899 Other long term (current) drug therapy
CPT/HCPCS: 36415; 71045; 80053; 83880; 84484; 85025; 85379; 87635; 93005; 96360; 99285; J7030

== ENCOUNTER 2020-02-18 13:42 | Emergency (ER) | payer OTHER, MEDICARE, MEDICAID ==
[~2020-02-18] VITALS: Ht 190.5 cm; Wt 88.6 kg
[2020-02-18] MEDS ORDERED: albuterol 2.5 MG/3 ML nebule NEB ONE (14:00)
[2020-02-18 14:24] LABS: BASOPHILS % (AUTO) 0.6 % (0-1); EOSINOPHILS # (AUTO) 0.1 X10'3 (0-0.9); EOSINOPHILS % (AUTO) 0.8 % (0-6); HEMATOCRIT 40.4 % (42.0-52.0); HEMOGLOBIN 13.5 g/dl (14.0-17.9); LYMPHOCYTES % (AUTO) 14.7 % (21-51); MEAN CORPUSCULAR HEMOGLOBIN 29.3 PG (27.0-31.0); MEAN CORPUSCULAR HGB CONC 33.3 g/dL (33.0-36.5); MEAN CORPUSCULAR VOLUME 87.8 FL (78-98); MEAN PLATELET VOLUME 7.3 FL (7.4-10.4); MONOCYTES # (AUTO) 0.5 X10'3 (0-0.9); MONOCYTES % (AUTO) 6.8 % (2-12); NEUTROPHILS # (AUTO) 5.3 X10'3 (1.8-7.7); NEUTROPHILS % (AUTO) 77.1 % (42-75); PLATELET COUNT 224 X10'3 (140-440); RED CELL DISTRIBUTION WIDTH 13.7 % (11.5-14.5); WHITE BLOOD COUNT 6.8 X10'3 (4.5-11.0)
[2020-02-18 14:39] LABS: ALANINE AMINOTRANSFERASE 41 U/L (12-78); ALBUMIN 3.3 G/DL (3.4-5.0); ALKALINE PHOSPHATASE 100 IU/L (46-116); ANION GAP 8 (8-16); ASPARTATE AMINO TRANSFERASE 32 U/L (10-37); BILIRUBIN,TOTAL 0.3 MG/DL (0.1-1.0); BLOOD UREA NITROGEN 18 MG/DL (7-18); BUN/CREATININE RATIO 15.3 (5.4-32.0); CALCIUM 8.4 MG/DL (8.5-10.1); CHLORIDE 105 MMOL/L (99-107); CREATININE 1.18 MG/DL (0.60-1.10); GLUCOSE 105 MG/DL (70-104); POTASSIUM 4.2 MMOL/L (3.5-5.1); SODIUM 142 MMOL/L (135-145); TOTAL CARBON DIOXIDE 29.2 MMOL/L (24-32); TOTAL PROTEIN 6.6 G/DL (6.4-8.2); eGFR 63 ML/MIN
[2020-02-18] MEDS ORDERED: iohexol 350MG/ML 100ml bottle IV ONE (14:57)
[2020-02-18 16:22] VITALS: BP 152/103
[2020-02-18] MEDS ORDERED: acetaminophen 325mg tablet PO ONE (16:30)
== END 2020-02-18 16:32 | disposition home or self-care (01) ==
LOC: ER 13:42
DX: R91.8 Other nonspecific abnormal finding of lung field (principal); R07.89 Other chest pain; R06.02 Shortness of breath; I10 Essential (primary) hypertension; I25.2 Old myocardial infarction; J44.9 Chronic obstructive pulmonary disease, unspecified; G89.29 Other chronic pain; F20.9 Schizophrenia, unspecified; Z86.711 Personal history of pulmonary embolism; Z98.890 Other specified postprocedural states; Z72.89 Other problems related to lifestyle; Z85.3 Personal history of malignant neoplasm of breast; Z88.8 Allergy status to other drugs, medicaments and biological substances; Z79.01 Long term (current) use of anticoagulants; Z79.899 Other long term (current) drug therapy
CPT/HCPCS: 36415; 71275; 80053; 84484; 85025; 85610; 93005; 94640; 99285; Q9967; 94760

== ENCOUNTER 2020-04-11 08:32 | Emergency (ER) | payer OTHER, MEDICARE, MEDICAID ==
[~2020-04-11] VITALS: Ht 190.5 cm; Wt 90.0 kg
[2020-04-11 08:32] VITALS: BP 149/107
== END 2020-04-11 09:30 | disposition home or self-care (01) ==
LOC: ER 08:32
DX: R06.02 Shortness of breath (principal); R07.89 Other chest pain; I10 Essential (primary) hypertension; I25.2 Old myocardial infarction; J44.9 Chronic obstructive pulmonary disease, unspecified; G89.29 Other chronic pain; F20.9 Schizophrenia, unspecified; Z86.711 Personal history of pulmonary embolism; Z85.841 Personal history of malignant neoplasm of brain; Z98.890 Other specified postprocedural states; Z72.89 Other problems related to lifestyle; Z60.2 Problems related to living alone; Z56.0 Unemployment, unspecified; Z88.5 Allergy status to narcotic agent; Z88.8 Allergy status to other drugs, medicaments and biological substances; Z79.899 Other long term (current) drug therapy
CPT/HCPCS: 71045; 99283

== ENCOUNTER 2020-06-09 11:20 | Emergency (ER) | payer OTHER, MEDICARE, MEDICAID ==
[~2020-06-09] VITALS: Ht 185.4 cm; Wt 89.1 kg
[2020-06-09 12:29] LABS: BASOPHILS % (AUTO) 0.4 % (0-1); EOSINOPHILS % (AUTO) 0.5 % (0-6); HEMATOCRIT 44.6 % (42.0-52.0); HEMOGLOBIN 14.9 g/dl (14.0-17.9); LYMPHOCYTES % (AUTO) 17.9 % (21-51); MEAN CORPUSCULAR HEMOGLOBIN 29.3 PG (27.0-31.0); MEAN CORPUSCULAR HGB CONC 33.4 g/dL (33.0-36.5); MEAN CORPUSCULAR VOLUME 87.7 FL (78-98); MEAN PLATELET VOLUME 6.9 FL (7.4-10.4); MONOCYTES # (AUTO) 0.6 X10'3 (0-0.9); NEUTROPHILS # (AUTO) 3.9 X10'3 (1.8-7.7); NEUTROPHILS % (AUTO) 70.2 % (42-75); PLATELET COUNT 243 X10'3 (140-440); RED BLOOD COUNT 5.09 X10'6 (4.70-6.10); RED CELL DISTRIBUTION WIDTH 14.8 % (11.5-14.5); WHITE BLOOD COUNT 5.5 X10'3 (4.5-11.0)
[2020-06-09 12:38] LABS: ALANINE AMINOTRANSFERASE 116 U/L (12-78); ALBUMIN 3.7 G/DL (3.4-5.0); ALKALINE PHOSPHATASE 168 IU/L (46-116); ANION GAP 15 (8-16); ASPARTATE AMINO TRANSFERASE 71 U/L (10-37); BILIRUBIN,TOTAL 0.4 MG/DL (0.1-1.0); BLOOD UREA NITROGEN 12 MG/DL (7-18); BUN/CREATININE RATIO 11.3 (5.4-32.0); CALCIUM 8.6 MG/DL (8.5-10.1); CHLORIDE 99 MMOL/L (99-107); CREATININE 1.06 MG/DL (0.60-1.10); GLUCOSE 95 MG/DL (70-104); SODIUM 138 MMOL/L (135-145); TOTAL CARBON DIOXIDE 24.5 MMOL/L (24-32); TOTAL PROTEIN 7.5 G/DL (6.4-8.2); eGFR 71 ML/MIN
[2020-06-09 12:45] VITALS: BP 140/100
== END 2020-06-09 13:21 | disposition home or self-care (01) ==
LOC: ER 11:20
DX: R06.02 Shortness of breath (principal); F41.9 Anxiety disorder, unspecified; R07.89 Other chest pain; I10 Essential (primary) hypertension; I25.2 Old myocardial infarction; J44.9 Chronic obstructive pulmonary disease, unspecified; Z87.01 Personal history of pneumonia (recurrent); G89.29 Other chronic pain; Z85.841 Personal history of malignant neoplasm of brain; Z86.16 Personal history of COVID-19; Z56.0 Unemployment, unspecified; Z88.6 Allergy status to analgesic agent; Z79.899 Other long term (current) drug therapy; Z72.89 Other problems related to lifestyle; Z88.8 Allergy status to other drugs, medicaments and biological substances; Z85.118 Personal history of other malignant neoplasm of bronchus and lung
CPT/HCPCS: 36415; 71045; 80053; 83880; 84484; 85025; 93005; 99285

== ENCOUNTER 2020-07-13 18:19 | Emergency (ER) | payer OTHER, MEDICARE, MEDICAID ==
[~2020-07-13] VITALS: Ht 190.5 cm; Wt 90.9 kg
[2020-07-13 19:08] VITALS: BP 152/107
== END 2020-07-13 22:20 | disposition home or self-care (01) ==
LOC: ER 18:19
DX: R06.02 Shortness of breath (principal); R07.89 Other chest pain; I10 Essential (primary) hypertension; I25.2 Old myocardial infarction; J44.9 Chronic obstructive pulmonary disease, unspecified; G89.29 Other chronic pain; Z87.01 Personal history of pneumonia (recurrent); Z85.841 Personal history of malignant neoplasm of brain; Z88.6 Allergy status to analgesic agent; Z88.8 Allergy status to other drugs, medicaments and biological substances; Z79.899 Other long term (current) drug therapy
CPT/HCPCS: 93005; 99283

== ENCOUNTER 2022-10-19 00:47 | Emergency (ER) | payer OTHER, MEDICARE, MEDICAID ==
[~2022-10-19] VITALS: Ht 190.5 cm; Wt 95.5 kg
[2022-10-19 01:12] VITALS: BP 140/79; PULSE 114; RESP 16; TEMP 98.6; O2SAT 97
== END 2022-10-19 05:25 | disposition home or self-care (01) ==
LOC: ER 00:48
DX: S09.90XA Unspecified injury of head, initial encounter (principal); R51.9 Headache, unspecified; I10 Essential (primary) hypertension; J44.9 Chronic obstructive pulmonary disease, unspecified; Z88.5 Allergy status to narcotic agent; Z88.8 Allergy status to other drugs, medicaments and biological substances; Z79.899 Other long term (current) drug therapy; Y08.89XA Assault by other specified means, initial encounter; Y93.89 Activity, other specified; Y92.89 Other specified places as the place of occurrence of the external cause; Y99.8 Other external cause status
CPT/HCPCS: 99281

== ENCOUNTER 2022-11-09 16:50 | Inpatient (IN) | payer OTHER, MEDICARE, MEDICAID ==
[~2022-11-09] VITALS: Ht 190.5 cm; Wt 90.0 kg
--- NOTE | 2022-11-09 16:55 | NUR ---
PT DENIES MORPHINE ALLERGY DESPITE IT BEING IN HIS CHART. PER PT MORPHINE ALLERGY DELETED
[2022-11-09] MEDS ORDERED: HYDROcodone/acetaminophen 10/325mg tab PO STA (17:00)
[2022-11-09] MEDS ORDERED: aspirin 81mg tab.chew PO ONE (19:15)
[2022-11-09] MEDS ORDERED: potassium Cl 40MEQ/1/2NS 520ml 520 ML IV PRN (19:50)
[2022-11-09] MEDS ORDERED: magnesium hydroxide 30ml (MOM) UD suspension PO PRN (19:50)
[2022-11-09] MEDS ORDERED: mag hydrox/Alum hydrox/simeth 30ml oral suspension PO PRN (19:50)
[2022-11-09] MEDS: normal saline 1000ml 1,000 ML IV SCH (19:50)
[2022-11-09] MEDS ORDERED: potassium Cl 20 mEq SR tablet PO PRN ×2 (19:50)
[2022-11-09] MEDS ORDERED: ondansetron/PF 4mg/2ml inj IV PRN (19:50)
[2022-11-09] MEDS ORDERED: acetaminophen 325mg tablet PO PRN (19:50)
[2022-11-09] MEDS ORDERED: magnesium 4gm in 100ml NS 100 ML IV PRN (19:50)
[2022-11-09] MEDS ORDERED: magnesium 2GM in 50ml NS 50 ML IV PRN (19:50)
[2022-11-09] MEDS ORDERED: magnesium Cl slow-release 64mg tablet PO PRN (19:50)
[2022-11-09] MEDS: K and/or MAG REPLACEMENT MC SCH (20:00)
--- NOTE | 2022-11-09 20:10 | NUR ---
PROVIDED FOOD AND DRINK DANIEL ADMIT, OK'D BY MICHAEL ROSEN OR IN THE AM
[2022-11-09 20:15] LABS: BASOPHILS % (AUTO) 0.4 % (0-1); EOSINOPHILS # (AUTO) 0.1 X10'3 (0-0.9); EOSINOPHILS % (AUTO) 1.5 % (0-6); HEMATOCRIT 34.1 % (42.0-52.0); HEMOGLOBIN 10.8 g/dl (14.0-17.9); LYMPHOCYTES # (AUTO) 0.4 X10'3 (1.1-4.8); LYMPHOCYTES % (AUTO) 9.1 % (21-51); MEAN CORPUSCULAR HEMOGLOBIN 25.9 PG (27.0-31.0); MEAN CORPUSCULAR HGB CONC 31.6 g/dL (33.0-36.5); MEAN PLATELET VOLUME 7.4 FL (7.4-10.4); MONOCYTES # (AUTO) 0.7 X10'3 (0-0.9); MONOCYTES % (AUTO) 16.3 % (2-12); NEUTROPHILS # (AUTO) 3.1 X10'3 (1.8-7.7); NEUTROPHILS % (AUTO) 72.7 % (42-75); PLATELET COUNT 313 X10'3 (140-440); RED BLOOD COUNT 4.16 X10'6 (4.70-6.10); RED CELL DISTRIBUTION WIDTH 20.6 % (11.5-14.5); WHITE BLOOD COUNT 4.3 X10'3 (4.5-11.0)
[2022-11-09 20:30] LABS: ALANINE AMINOTRANSFERASE 36 U/L (12-78); ALBUMIN 2.7 G/DL (3.4-5.0); ALBUMIN/GLOBULIN RATIO 0.7 (1.1-1.5); ALKALINE PHOSPHATASE 133 IU/L (46-116); ANION GAP 13 (8-16); ASPARTATE AMINO TRANSFERASE 31 U/L (10-37); BILIRUBIN,TOTAL 0.8 MG/DL (0.1-1.0); BLOOD UREA NITROGEN 27 MG/DL (7-18); BUN/CREATININE RATIO 22.3 (10.0-20.0); CALCIUM 9.4 MG/DL (8.5-10.1); CHLORIDE 104 MMOL/L (99-107); CREATININE 1.21 MG/DL (0.60-1.10); GLUCOSE 118 MG/DL (70-104); MAGNESIUM 1.8 MG/DL (1.5-2.4); SODIUM 142 MMOL/L (135-145); TOTAL CARBON DIOXIDE 24.9 MMOL/L (24-32); TOTAL PROTEIN 6.5 G/DL (6.4-8.2); eCRCL 75 ML/MIN; eGFR 61 ML/MIN
[2022-11-09 21:02] LABS: ANISOCYTOSIS 3+; PLATELET ESTIMATE NORMAL; TOTAL CELLS COUNTED 100
[2022-11-09 21:03] LABS: ELLIPTOCYTES FEW; POLYCHROMASIA FEW
[2022-11-09 21:04] LABS: HYPOCHROMASIA 1+
[2022-11-09] MEDS: docusate sod 100mg capsule PO SCH (22:31)
[2022-11-09] MEDS ORDERED: ondansetron/PF 4mg/2ml inj IV ONE (23:05)
[2022-11-09] MEDS ORDERED: morphine 4 MG/ML inj SYRINge IV ONE ×2 (23:05)
[2022-11-10] MEDS: normal saline 1000ml 1,000 ML IV SCH ×3 (06:29→22:55)
[2022-11-10] MEDS: HYDROcodone/acetaminophen 10/325mg tab PO PRN ×2 (07:25→17:05)
[2022-11-10] MEDS: docusate sod 100mg capsule PO SCH ×2 (07:25→20:00)
[2022-11-10 07:40] LABS: BASOPHILS % (AUTO) 1.1 % (0-1); EOSINOPHILS # (AUTO) 0.2 X10'3 (0-0.9); EOSINOPHILS % (AUTO) 6.1 % (0-6); HEMATOCRIT 32.5 % (42.0-52.0); HEMOGLOBIN 10.3 g/dl (14.0-17.9); LYMPHOCYTES # (AUTO) 0.5 X10'3 (1.1-4.8); LYMPHOCYTES % (AUTO) 13.8 % (21-51); MEAN CORPUSCULAR HEMOGLOBIN 26.4 PG (27.0-31.0); MEAN CORPUSCULAR HGB CONC 31.8 g/dL (33.0-36.5); MEAN PLATELET VOLUME 7.1 FL (7.4-10.4); MONOCYTES # (AUTO) 0.7 X10'3 (0-0.9); MONOCYTES % (AUTO) 16.7 % (2-12); NEUTROPHILS # (AUTO) 2.4 X10'3 (1.8-7.7); NEUTROPHILS % (AUTO) 62.3 % (42-75); PLATELET COUNT 293 X10'3 (140-440); RED BLOOD COUNT 3.92 X10'6 (4.70-6.10); RED CELL DISTRIBUTION WIDTH 20.7 % (11.5-14.5); WHITE BLOOD COUNT 3.9 X10'3 (4.5-11.0)
[2022-11-10] MEDS ORDERED: morphine 4 MG/ML inj SYRINge IV ONE (07:45)
[2022-11-10] MEDS: K and/or MAG REPLACEMENT MC SCH ×2 (08:00→20:04)
[2022-11-10 08:12] LABS: ALANINE AMINOTRANSFERASE 32 U/L (12-78); ALBUMIN 2.5 G/DL (3.4-5.0); ALBUMIN/GLOBULIN RATIO 0.7 (1.1-1.5); ALKALINE PHOSPHATASE 118 IU/L (46-116); ANION GAP 8 (8-16); ASPARTATE AMINO TRANSFERASE 27 U/L (10-37); BILIRUBIN,TOTAL 0.5 MG/DL (0.1-1.0); BLOOD UREA NITROGEN 29 MG/DL (7-18); BUN/CREATININE RATIO 24.2 (10.0-20.0); CALCIUM 8.9 MG/DL (8.5-10.1); CHLORIDE 109 MMOL/L (99-107); GLUCOSE 113 MG/DL (70-104); MAGNESIUM 2.1 MG/DL (1.5-2.4); POTASSIUM 4.1 MMOL/L (3.5-5.1); SODIUM 145 MMOL/L (135-145); TOTAL PROTEIN 6.1 G/DL (6.4-8.2); eCRCL 75 ML/MIN; eGFR 61 ML/MIN
[2022-11-10 08:15] LABS: ANISOCYTOSIS 3+; PLATELET ESTIMATE NORMAL; TOTAL CELLS COUNTED 100
[2022-11-10 08:16] LABS: HYPOCHROMASIA 1+; POLYCHROMASIA FEW
[2022-11-10 08:17] LABS: ELLIPTOCYTES FEW
--- NOTE | 2022-11-10 13:37 | NUR ---
5315 RECEIVED REPORT FROM ELISE RN ASSUMING CARE DURING 30 MIN LUNCH BREAK
[2022-11-10] MEDS ORDERED: NO HOME MEDS (13:41)
[2022-11-10] MEDS ORDERED: ipratropium/albuterol 3ml nebule NEB PRN (20:35)
[2022-11-10] MEDS: heparin, porcine 5000 units/ml vial SQ SCH (20:41)
--- NOTE | 2022-11-10 20:49 | NUR ---
ATTEMPTED TO CALL REPORT, PER NURSE ANSWERING LINE STILL NOT SURE WHAT NURSE IS ASSIGNED TO PT YET. WILL F/U.
[2022-11-10 22:06] VITALS: RESP 17
[2022-11-11] MEDS: HYDROcodone/acetaminophen 10/325mg tab PO PRN ×5 (00:31→20:16)
[2022-11-11 06:00] VITALS: BP 118/85; PULSE 95; RESP 18; TEMP 98.4; O2SAT 96
--- NOTE | 2022-11-11 06:10 | NUR ---
RECEIVED REPORT FROM CIRO, RN
[2022-11-11 06:53] LABS: BASOPHILS % (AUTO) 0.3 % (0-1); EOSINOPHILS # (AUTO) 0.2 X10'3 (0-0.9); EOSINOPHILS % (AUTO) 3.8 % (0-6); HEMATOCRIT 28.7 % (42.0-52.0); HEMOGLOBIN 9.2 g/dl (14.0-17.9); LYMPHOCYTES # (AUTO) 0.9 X10'3 (1.1-4.8); LYMPHOCYTES % (AUTO) 15.2 % (21-51); MEAN CORPUSCULAR HEMOGLOBIN 26.4 PG (27.0-31.0); MEAN CORPUSCULAR HGB CONC 31.9 g/dL (33.0-36.5); MEAN CORPUSCULAR VOLUME 82.5 FL (78-98); MEAN PLATELET VOLUME 7.2 FL (7.4-10.4); MONOCYTES # (AUTO) 0.6 X10'3 (0-0.9); MONOCYTES % (AUTO) 9.8 % (2-12); NEUTROPHILS # (AUTO) 4.1 X10'3 (1.8-7.7); NEUTROPHILS % (AUTO) 70.9 % (42-75); PLATELET COUNT 263 X10'3 (140-440); RED BLOOD COUNT 3.48 X10'6 (4.70-6.10); RED CELL DISTRIBUTION WIDTH 20.2 % (11.5-14.5); WHITE BLOOD COUNT 5.8 X10'3 (4.5-11.0)
[2022-11-11 07:05] LABS: ALANINE AMINOTRANSFERASE 23 U/L (12-78); ALBUMIN 2.1 G/DL (3.4-5.0); ALBUMIN/GLOBULIN RATIO 0.7 (1.1-1.5); ALKALINE PHOSPHATASE 97 IU/L (46-116); ANION GAP 3 (8-16); ASPARTATE AMINO TRANSFERASE 21 U/L (10-37); BILIRUBIN,TOTAL 0.4 MG/DL (0.1-1.0); BLOOD UREA NITROGEN 21 MG/DL (7-18); BUN/CREATININE RATIO 22.8 (10.0-20.0); CALCIUM 8.6 MG/DL (8.5-10.1); CHLORIDE 108 MMOL/L (99-107); CREATININE 0.92 MG/DL (0.60-1.10); GLUCOSE 102 MG/DL (70-104); MAGNESIUM 1.6 MG/DL (1.5-2.4); POTASSIUM 3.6 MMOL/L (3.5-5.1); SODIUM 139 MMOL/L (135-145); TOTAL CARBON DIOXIDE 28.3 MMOL/L (24-32); TOTAL PROTEIN 5.2 G/DL (6.4-8.2); eCRCL 98 ML/MIN; eGFR 83 ML/MIN
[2022-11-11] MEDS: K and/or MAG REPLACEMENT MC SCH ×2 (07:14→20:00)
[2022-11-11] MEDS: docusate sod 100mg capsule PO SCH ×2 (07:14→20:15)
[2022-11-11] MEDS: heparin, porcine 5000 units/ml vial SQ SCH ×2 (07:14→20:15)
--- NOTE | 2022-11-11 08:30 | NUR ---
call surgery or charge in regards to patient, surgery said that they currently do not have this patient scheduled for surgery today, continue to monitor patient
[2022-11-11 10:11] VITALS: PULSE 67; RESP 17; O2SAT 94
[2022-11-11 11:00] VITALS: BP 143/85; PULSE 99; RESP 16; TEMP 98; O2SAT 94
--- NOTE | 2022-11-11 12:17 | NUR ---
[place] [employer] officer, Sonia Sameer, came to unit stating he was here to follow up a complaint the pt had filed. Officer Sameer returned to the nurse's station before departing, leaving his card, which is placed in the pt's chart.
[2022-11-11] MEDS: normal saline 1000ml 1,000 ML IV SCH ×2 (16:36→20:16)
[2022-11-11 18:00] VITALS: BP 113/65; PULSE 93; RESP 16; TEMP 98.1; O2SAT 94
--- NOTE | 2022-11-11 18:00 | NUR ---
Patient in room ORTHO 4023. I have received report from KAIDEN Cisneros and had the opportunity to ask questions and assume patient care.
--- NOTE | 2022-11-11 18:27 | NUR ---
GAVE REPORT TO KAIDEN ALEGRE
[2022-11-11 20:12] VITALS: PULSE 101; RESP 16; O2SAT 93
[2022-11-11 22:00] VITALS: BP 124/82; PULSE 109; RESP 17; TEMP 97.9; O2SAT 96
[2022-11-12] VITALS (23 sets, daily range): BP systolic 101–147; BP diastolic 67–90; PULSE 85–111; RESP 12–18; TEMP 97–97.9; O2SAT 89–100
[2022-11-12] MEDS: HYDROcodone/acetaminophen 10/325mg tab PO PRN ×5 (00:13→21:24)
--- NOTE | 2022-11-12 06:10 | NUR ---
Problems reprioritized. Patient report given, questions answered & plan of care reviewed with MARISOL Millard.
[2022-11-12 06:23] LABS: BASOPHILS % (AUTO) 0.5 % (0-1); EOSINOPHILS # (AUTO) 0.2 X10'3 (0-0.9); EOSINOPHILS % (AUTO) 4.9 % (0-6); HEMATOCRIT 26.3 % (42.0-52.0); HEMOGLOBIN 8.4 g/dl (14.0-17.9); LYMPHOCYTES # (AUTO) 0.6 X10'3 (1.1-4.8); LYMPHOCYTES % (AUTO) 14.2 % (21-51); MEAN CORPUSCULAR HEMOGLOBIN 26.4 PG (27.0-31.0); MEAN CORPUSCULAR VOLUME 82.4 FL (78-98); MEAN PLATELET VOLUME 7.3 FL (7.4-10.4); MONOCYTES # (AUTO) 0.5 X10'3 (0-0.9); MONOCYTES % (AUTO) 12.9 % (2-12); NEUTROPHILS # (AUTO) 2.8 X10'3 (1.8-7.7); NEUTROPHILS % (AUTO) 67.5 % (42-75); PLATELET COUNT 261 X10'3 (140-440); RED CELL DISTRIBUTION WIDTH 20.3 % (11.5-14.5); WHITE BLOOD COUNT 4.2 X10'3 (4.5-11.0)
[2022-11-12] MEDS ORDERED: fentaNYL/PF 50MCG/1 ML 2ML syringe ONE ×2 (06:39→07:37)
[2022-11-12] MEDS ORDERED: sevoflurane 250ml liquid IH ONE (06:40)
[2022-11-12] MEDS ORDERED: midazolam 1 mg/ML 2ml injection ONE (06:40)
[2022-11-12] MEDS ORDERED: LIDOcaine 2% (20mg/ml) 5ml vial ONE (06:41)
[2022-11-12] MEDS ORDERED: dexamethasone sod phosphate 4mg/ml inj. ONE (06:41)
[2022-11-12] MEDS ORDERED: ondansetron/PF 4mg/2ml inj ONE (06:41)
[2022-11-12] MEDS ORDERED: propofol inj 20 ML IV ONE (06:41)
[2022-11-12] MEDS ORDERED: ROPIVAcaine 0.5% (5mg/ml) 30ml vial ONE ×2 (06:41)
--- NOTE | 2022-11-12 06:41 | NUR ---
Patient in room ORTHO 4023. I have received report from KAIDEN Schuster and had the opportunity to ask questions and assume patient care.
--- NOTE | 2022-11-12 06:42 | NUR ---
Patient in room ORTHO 4023. I have received report from KAIDEN Schuster and had the opportunity to ask questions and assume patient care.
[2022-11-12] MEDS ORDERED: ceFAZolin 1000mg inj ONE ×2 (06:43)
[2022-11-12 06:48] LABS: ALANINE AMINOTRANSFERASE 34 U/L (12-78); ALBUMIN 1.8 G/DL (3.4-5.0); ALBUMIN/GLOBULIN RATIO 0.6 (1.1-1.5); ALKALINE PHOSPHATASE 99 IU/L (46-116); ANION GAP 4 (8-16); ASPARTATE AMINO TRANSFERASE 56 U/L (10-37); BILIRUBIN,TOTAL 0.4 MG/DL (0.1-1.0); BLOOD UREA NITROGEN 15 MG/DL (7-18); BUN/CREATININE RATIO 17.9 (10.0-20.0); CALCIUM 8.3 MG/DL (8.5-10.1); CHLORIDE 106 MMOL/L (99-107); CREATININE 0.84 MG/DL (0.60-1.10); GLUCOSE 107 MG/DL (70-104); MAGNESIUM 1.5 MG/DL (1.5-2.4); POTASSIUM 3.9 MMOL/L (3.5-5.1); SODIUM 138 MMOL/L (135-145); TOTAL CARBON DIOXIDE 27.7 MMOL/L (24-32); TOTAL PROTEIN 4.8 G/DL (6.4-8.2); eCRCL 108 ML/MIN; eGFR > 90 ML/MIN
[2022-11-12] MEDS ORDERED: morphine 2 MG/ML inj. syringe IV PRN (07:25)
[2022-11-12] MEDS ORDERED: ringers solution, lacted 1,000 ML IV SCH (07:25)
[2022-11-12] MEDS ORDERED: fentaNYL/PF 50MCG/1 ML 2ML syringe IV PRN ×2 (07:25)
[2022-11-12] MEDS ORDERED: labetalol 20mg/4ml (5mg/ml) syringe IV PRN (07:25)
[2022-11-12] MEDS ORDERED: ondansetron/PF 4mg/2ml inj IV PRN (07:25)
[2022-11-12] MEDS ORDERED: morphine 4 MG/ML inj SYRINge IV PRN (07:25)
[2022-11-12] MEDS ORDERED: hydrALAZINE 20mg/ml inj. IV PRN (07:25)
[2022-11-12] MEDS: docusate sod 100mg capsule PO SCH ×2 (07:54→19:48)
[2022-11-12] MEDS: K and/or MAG REPLACEMENT MC SCH ×2 (07:54→19:48)
[2022-11-12] MEDS: heparin, porcine 5000 units/ml vial SQ SCH ×2 (07:55→19:57)
[2022-11-12] MEDS: aspirin 81mg, enteric-coated 1 TAB TABLET.DR PO SCH (08:00)
--- NOTE | 2022-11-12 08:04 | NUR ---
Received from OR via BED, accompanied by Anesthesiologist DR SHANKS and report given by Anesthesiologist AND SMOKE CHASER. PT VERY DROWSY, NO S/S OF DISTRESS/DISCOMFORT. LEFT LEG W/JUANITO WRAP COVERING FROM ABOVE KNEE TO ANKLE CDI, LEFT DISTAL PORTION OF FOOT W/COBAN COVERING 1/2 OF FOOT CDI. Addendum: 11/12/22 at 0841 by Angelina Jade RN Amended: Links added.
--- NOTE | 2022-11-12 09:34 | NUR ---
Report called to receiving nurse. Transferred via BED, Belongings A WATCH PLACED ON PTS LEFT WRIST AND 2 FOOD CARDS PLACED ON PTS NECK W/MOUSTAPHA. BLL, CALL LIGHT GIVEN, SIDE RAILS UP X 2, RECEIVING RN NOTIFIED OF PTS ARRIVAL. Special Issues communicated to receiving nurse. YES. Addendum: 11/12/22 at 1000 by Angelina Jade RN Amended: Links added.
[2022-11-12] MEDS: normal saline 1000ml 1,000 ML IV SCH ×2 (12:00→17:50)
--- NOTE | 2022-11-12 15:37 | NUR ---
SCHOOL SERVICES OFFICER documentation: I have reviewed and agree with all interventions, assessments performed and documented by Freeman Garcia LVN.
--- NOTE | 2022-11-12 18:17 | NUR ---
Problems reprioritized. Patient report given, questions answered & plan of care reviewed with MARISOL Rome.
[2022-11-13 02:00] VITALS: BP 153/74; PULSE 83; RESP 14; TEMP 97.1; O2SAT 95
[2022-11-13] MEDS: normal saline 1000ml 1,000 ML IV SCH (02:20)
[2022-11-13] MEDS: HYDROcodone/acetaminophen 10/325mg tab PO PRN ×3 (04:04→13:05)
--- NOTE | 2022-11-13 05:25 | NUR ---
MARISOL documentation: I have reviewed and agree with all interventions, assessments performed and documented by JANET DAMON. Addendum: 11/13/22 at 0525 by Li Napier RN Amended: Links added.
[2022-11-13 06:00] VITALS: BP 142/86; PULSE 81; RESP 14; TEMP 98.3; O2SAT 96
[2022-11-13 06:14] LABS: BASOPHILS % (AUTO) 0.1 % (0-1); EOSINOPHILS % (AUTO) 0.4 % (0-6); HEMATOCRIT 24.7 % (42.0-52.0); HEMOGLOBIN 7.9 g/dl (14.0-17.9); LYMPHOCYTES # (AUTO) 0.4 X10'3 (1.1-4.8); LYMPHOCYTES % (AUTO) 6.7 % (21-51); MEAN CORPUSCULAR HEMOGLOBIN 26.5 PG (27.0-31.0); MEAN CORPUSCULAR HGB CONC 32.1 g/dL (33.0-36.5); MEAN CORPUSCULAR VOLUME 82.5 FL (78-98); MEAN PLATELET VOLUME 7.5 FL (7.4-10.4); MONOCYTES # (AUTO) 0.9 X10'3 (0-0.9); MONOCYTES % (AUTO) 14.2 % (2-12); NEUTROPHILS # (AUTO) 4.8 X10'3 (1.8-7.7); NEUTROPHILS % (AUTO) 78.6 % (42-75); PLATELET COUNT 289 X10'3 (140-440); RED BLOOD COUNT 2.99 X10'6 (4.70-6.10); RED CELL DISTRIBUTION WIDTH 20.1 % (11.5-14.5); WHITE BLOOD COUNT 6.1 X10'3 (4.5-11.0)
--- NOTE | 2022-11-13 06:17 | NUR ---
Problems reprioritized. Patient report given, questions answered & plan of care reviewed with
--- NOTE | 2022-11-13 06:20 | NUR ---
Patient in room ORTHO 4023. I have received report from KAIDEN Jefferson & MARISOL Rome and had the opportunity to ask questions and assume patient care.
[2022-11-13 06:28] LABS: ALANINE AMINOTRANSFERASE 30 U/L (12-78); ALBUMIN 1.8 G/DL (3.4-5.0); ALBUMIN/GLOBULIN RATIO 0.6 (1.1-1.5); ALKALINE PHOSPHATASE 94 IU/L (46-116); ANION GAP 2 (8-16); ASPARTATE AMINO TRANSFERASE 25 U/L (10-37); BILIRUBIN,TOTAL 0.2 MG/DL (0.1-1.0); BLOOD UREA NITROGEN 13 MG/DL (7-18); BUN/CREATININE RATIO 16.7 (10.0-20.0); CALCIUM 8.4 MG/DL (8.5-10.1); CHLORIDE 105 MMOL/L (99-107); CREATININE 0.78 MG/DL (0.60-1.10); GLUCOSE 126 MG/DL (70-104); MAGNESIUM 1.6 MG/DL (1.5-2.4); POTASSIUM 3.8 MMOL/L (3.5-5.1); SODIUM 137 MMOL/L (135-145); TOTAL CARBON DIOXIDE 30.1 MMOL/L (24-32); TOTAL PROTEIN 4.9 G/DL (6.4-8.2); eCRCL 116 ML/MIN; eGFR > 90 ML/MIN
[2022-11-13] MEDS: docusate sod 100mg capsule PO SCH (07:57)
[2022-11-13] MEDS: aspirin 81mg, enteric-coated 1 TAB TABLET.DR PO SCH (07:58)
[2022-11-13] MEDS: heparin, porcine 5000 units/ml vial SQ SCH (07:58)
[2022-11-13 08:00] VITALS: RESP 14; O2SAT 96
[2022-11-13] MEDS: K and/or MAG REPLACEMENT MC SCH (08:00)
[2022-11-13 08:08] LABS: ANISOCYTOSIS 3+; HYPOCHROMASIA 1+; PLATELET ESTIMATE NORMAL
[2022-11-13 08:09] LABS: ELLIPTOCYTES FEW
[2022-11-13 10:00] VITALS: BP 116/70; PULSE 98; RESP 18; TEMP 97.7; O2SAT 96
[2022-11-13 10:55] VITALS: PULSE 94; RESP 16; O2SAT 93
--- NOTE | 2022-11-13 14:00 | NUR ---
IRRIGATION FLUME LAYER documentation: I have reviewed and agree with all interventions, assessments performed and documented by Freeman Garcia LVN. See assessment for changes.
[2022-11-13 14:05] VITALS: RESP 18
--- NOTE | 2022-11-13 14:30 | NUR ---
Pt stable for discharge. IV discontinued prior to d/c. Report called in to [facility]. Pt left with all personal belongings and was transported by [facility] personnel to [facility] in [facility]. D/C at 1420.
== END 2022-11-13 14:20 | DRG 492 ==
LOC: ER 16:50 → ED HOLD 19:50 → ORTHO 4S 11-10 21:45
PROVIDERS: ADMIT Internal Medicine; ATTEND Family Medicine
PROC: 3E0T3BZ Introduction of Anesthetic Agent into Peripheral Nerves and Plexi, Percutaneous Approach (ICD-10-PCS; 2022-11-12)
PROC: 0QSH06Z Reposition Left Tibia with Intramedullary Internal Fixation Device, Open Approach (ICD-10-PCS; principal; 2022-11-12 06:43)
DX: S82.142A Displaced bicondylar fracture of left tibia, initial encounter for closed fracture (principal); N17.0 Acute kidney failure with tubular necrosis; R71.0 Precipitous drop in hematocrit; F20.9 Schizophrenia, unspecified; I10 Essential (primary) hypertension; J44.9 Chronic obstructive pulmonary disease, unspecified; M54.9 Dorsalgia, unspecified; F10.11 Alcohol abuse, in remission; F19.10 Other psychoactive substance abuse, uncomplicated; S82.402A Unspecified fracture of shaft of left fibula, initial encounter for closed fracture; G89.29 Other chronic pain; W01.0XXA Fall on same level from slipping, tripping and stumbling without subsequent striking against object, initial encounter; Z86.711 Personal history of pulmonary embolism; I25.2 Old myocardial infarction; Z59.00 Homelessness unspecified; Z85.841 Personal history of malignant neoplasm of brain; Z87.891 Personal history of nicotine dependence; Z85.118 Personal history of other malignant neoplasm of bronchus and lung; Z88.8 Allergy status to other drugs, medicaments and biological substances; Y93.89 Activity, other specified; Y92.89 Other specified places as the place of occurrence of the external cause; Y99.8 Other external cause status
CPT/HCPCS: 36415; 71045; 73560; 73590; 73610; 76000; 80053; 83735; 85007; 85008; 85025; 86885; 86900; 86901; 87081; 93005; 94760; 97116; 97161; 97530; 99285; A4615; A4618; A6223; A6449; A7000; C1713; G0378; J0690; J1100; J1644; J2250; J2270; J2405; J2704; J2795; J3010; J3490; J7030; J7060; J7120

== ENCOUNTER 2023-02-16 11:18 | Inpatient (IN) | payer OTHER, MEDICARE, MEDICAID ==
[~2023-02-16] VITALS: Ht 180.3 cm; Wt 85.7 kg
[~2023-02-16 11:18] MED LIST changes: -APIX5TAB3 PO; -COR3.125T PO; -CYCL-1 PO; +CefTRIAXone 2gm/D5W 50ml BAG 50 ML IV ONE; -FLUT1DIS4 INH; +NO HOME MEDS; -OMEP20CA15 PO
[2023-02-16] MEDS ORDERED: normal saline 1000ML IV soln IVB ONE (12:25)
[2023-02-16 13:33] LABS: BASOPHILS % (AUTO) 0.3 % (0-1); EOSINOPHILS % (AUTO) 0.8 % (0-6); HEMATOCRIT 42.8 % (42.0-52.0); HEMOGLOBIN 13.3 g/dl (14.0-17.9); LYMPHOCYTES # (AUTO) 0.5 X10'3 (1.1-4.8); LYMPHOCYTES % (AUTO) 15.9 % (21-51); MEAN CORPUSCULAR HEMOGLOBIN 25.5 PG (27.0-31.0); MEAN CORPUSCULAR HGB CONC 31.2 g/dL (33.0-36.5); MEAN CORPUSCULAR VOLUME 81.9 FL (78-98); MEAN PLATELET VOLUME 8.3 FL (7.4-10.4); MONOCYTES # (AUTO) 0.1 X10'3 (0-0.9); NEUTROPHILS # (AUTO) 2.7 X10'3 (1.8-7.7); PLATELET COUNT 244 X10'3 (140-440); RED BLOOD COUNT 5.23 X10'6 (4.70-6.10); RED CELL DISTRIBUTION WIDTH 17.9 % (11.5-14.5); WHITE BLOOD COUNT 3.3 X10'3 (4.5-11.0)
[2023-02-16 13:45] LABS: BILIRUBIN,URINE NEGATIVE (Neg); CLARITY,URINE SLIGHTLY CLOUDY (Clear); COLOR,URINE YELLOW (Yellow); GLUCOSE, URINE 250 mg/dl (Neg); KETONES,URINE TRACE mg/dl (Neg); LEUKOCYTE ESTERASE ,URINE NEGATIVE (Neg); NITRITES, URINE NEGATIVE (Neg); OCCULT BLOOD,URINE TRACE-INTACT (Neg); PH,URINE 5.5 (4.8-8.0); PROTEIN,URINE TRACE mg/dl (Neg); UROBILINOGEN,URINE 0.2 E.U/dL (0.2-1.0)
[2023-02-16 13:48] LABS: ALANINE AMINOTRANSFERASE 61 U/L (12-78); ALBUMIN 2.7 G/DL (3.4-5.0); ALBUMIN/GLOBULIN RATIO 0.7 (1.1-1.5); ALKALINE PHOSPHATASE 180 IU/L (46-116); ANION GAP 10 (8-16); ASPARTATE AMINO TRANSFERASE 60 U/L (10-37); BLOOD UREA NITROGEN 15 MG/DL (7-18); BUN/CREATININE RATIO 25.9 (10.0-20.0); CALCIUM 8.5 MG/DL (8.5-10.1); CHLORIDE 108 MMOL/L (99-107); CREATININE 0.58 MG/DL (0.60-1.10); GLUCOSE 174 MG/DL (70-104); POTASSIUM 3.7 MMOL/L (3.5-5.1); SODIUM 144 MMOL/L (135-145); TOTAL CARBON DIOXIDE 25.7 MMOL/L (24-32); TOTAL PROTEIN 6.7 G/DL (6.4-8.2); eCRCL 139 ML/MIN; eGFR > 90 ML/MIN
[2023-02-16 13:52] LABS: ETHANOL 49 MG/DL (<10)
[2023-02-16 13:53] LABS: AMMONIA < 10 UMOL/L (11-32); BILIRUBIN,TOTAL 0.1 MG/DL (0.1-1.0); LACTIC SEPSIS 5.2 MMOL/L (0.4-2.0)
[2023-02-16 13:53] LABS: UA COLLECTION TYPE STRAIGHT CATH; URINE AMPHETAMINE SCREEN NEGATIVE (Neg); URINE BARBITUATE SCREEN NEGATIVE (Neg); URINE BENZODIAZEPINES SCREEN NEGATIVE (Neg); URINE CANNABINOID SCREEN POSITIVE (Neg); URINE COCAINE SCREEN NEGATIVE (Neg); URINE METHADONE SCREEN NEGATIVE (Neg); URINE OPIATE SCREEN NEGATIVE (Neg); URINE PHENCYCLIDINE SCREEN NEGATIVE (Neg)
[2023-02-16 13:54] LABS: HYALINE CASTS 0-3 /LPF (NEGATIVE); SQUAMOUS EPITHELIAL CELL,UR FEW /LPF (FEW)
[2023-02-16 13:55] LABS: BACTERIA,URINE FEW /HPF (Neg); CAL OXALATE CRYSTALS 4+ /HPF (NEGATIVE)
[2023-02-16 13:56] LABS: MUCUS STRANDS FEW /LPF (Neg); WBC,URINE 0-4 /HPF (0-4)
[2023-02-16] MEDS ORDERED: normal saline 1000ml 1,000 ML IVB ONE ×3 (15:20→17:10)
[2023-02-16] MEDS ORDERED: LORazepam 2 mg/ml vial IV ONE (16:45)
[2023-02-16] MEDS ORDERED: thiamine 100mg/ml 2ml inj. IV ONE (16:45)
[2023-02-16 17:13] LABS: CREATINE KINASE 155 U/L (39-308)
[2023-02-16] MEDS ORDERED: magnesium 4gm in 100ml NS 100 ML IV PRN (18:05)
[2023-02-16] MEDS ORDERED: potassium Cl 20 mEq SR tablet PO PRN ×2 (18:05)
[2023-02-16] MEDS ORDERED: magnesium Cl slow-release 64mg tablet PO PRN (18:05)
[2023-02-16] MEDS ORDERED: ondansetron/PF 4mg/2ml inj IV PRN (18:05)
[2023-02-16] MEDS ORDERED: magnesium 2GM in 50ml NS 50 ML IV PRN (18:05)
[2023-02-16] MEDS ORDERED: potassium Cl 40MEQ/1/2NS 520ml 520 ML IV PRN (18:05)
[2023-02-16] MEDS: K and/or MAG REPLACEMENT MC SCH (20:00)
[2023-02-16] MEDS: normal saline 1000ml 1,000 ML IV SCH (21:12)
[2023-02-17] VITALS (7 sets, daily range): BP systolic 113–141; BP diastolic 58–82; PULSE 88–120; RESP 12–19; TEMP 97.5–99; O2SAT 93–97
[2023-02-17] MEDS: temazepam 15mg capsule PO PRN ×2 (00:14→22:36)
[2023-02-17] MEDS: LORazepam 2 mg/ml vial IV PRN ×2 (00:15→13:47)
[2023-02-17] MEDS: K and/or MAG REPLACEMENT MC SCH ×2 (08:00→19:39)
[2023-02-17] MEDS ORDERED: vancomycin inj 1,000 MG in normal saline 250ml IV soln 250 ML IV SCH (08:00)
[2023-02-17 08:41] LABS: BASOPHILS % (AUTO) 0.6 % (0-1); EOSINOPHILS % (AUTO) 0.7 % (0-6); HEMOGLOBIN 10.8 g/dl (14.0-17.9); LYMPHOCYTES # (AUTO) 0.6 X10'3 (1.1-4.8); LYMPHOCYTES % (AUTO) 11.3 % (21-51); MEAN CORPUSCULAR HEMOGLOBIN 26.1 PG (27.0-31.0); MEAN CORPUSCULAR HGB CONC 32.7 g/dL (33.0-36.5); MEAN PLATELET VOLUME 8.2 FL (7.4-10.4); MONOCYTES # (AUTO) 0.3 X10'3 (0-0.9); MONOCYTES % (AUTO) 5.6 % (2-12); NEUTROPHILS # (AUTO) 4.5 X10'3 (1.8-7.7); NEUTROPHILS % (AUTO) 81.8 % (42-75); PLATELET COUNT 265 X10'3 (140-440); RED BLOOD COUNT 4.12 X10'6 (4.70-6.10); RED CELL DISTRIBUTION WIDTH 17.2 % (11.5-14.5); WHITE BLOOD COUNT 5.5 X10'3 (4.5-11.0)
[2023-02-17] MEDS: vancomycin/NS 1 GM ADD-VANTAGE 250 ML IV SCH ×3 (08:49→23:51)
[2023-02-17 08:54] LABS: INR 0.9 INR; PROTHROMBIN TIME 10.1 SECONDS (9.0-12.0)
[2023-02-17] MEDS ORDERED: HYDROcodone/acetaminophen 10/325mg tab PO ONE (09:00)
[2023-02-17 09:03] LABS: ALANINE AMINOTRANSFERASE 49 U/L (12-78); ALBUMIN 2.1 G/DL (3.4-5.0); ALBUMIN/GLOBULIN RATIO 0.7 (1.1-1.5); ALKALINE PHOSPHATASE 137 IU/L (46-116); AMYLASE 81 U/L (25-115); ANION GAP 9 (8-16); ASPARTATE AMINO TRANSFERASE 45 U/L (10-37); BILIRUBIN,TOTAL 0.2 MG/DL (0.1-1.0); BLOOD UREA NITROGEN 13 MG/DL (7-18); CALCIUM 8.4 MG/DL (8.5-10.1); CHLORIDE 113 MMOL/L (99-107); CREATININE 0.93 MG/DL (0.60-1.10); GLUCOSE 80 MG/DL (70-104); LIPASE 14 U/L (16-77); MAGNESIUM 1.4 MG/DL (1.5-2.4); PHOSPHORUS 4.3 MG/DL (2.3-4.5); POTASSIUM 3.9 MMOL/L (3.5-5.1); SODIUM 148 MMOL/L (135-145); TOTAL CARBON DIOXIDE 26.3 MMOL/L (24-32); TOTAL PROTEIN 5.2 G/DL (6.4-8.2); eCRCL 87 ML/MIN; eGFR 82 ML/MIN
[2023-02-17] MEDS: morphine 2 MG/ML inj. syringe IV PRN ×3 (12:07→19:32)
[2023-02-17] MEDS: normal saline 1000ml 1,000 ML IV SCH (19:39)
[2023-02-17] MEDS: CefTRIAXone/D5W-Rocephin 1gm 50 ML IV SCH (20:27)
[2023-02-17] MEDS: acetaminophen 325mg tablet PO PRN (22:36)
[2023-02-18] VITALS (7 sets, daily range): BP systolic 106–157; BP diastolic 64–94; PULSE 92–103; RESP 12–19; TEMP 97.4–98; O2SAT 93–99
[2023-02-18] MEDS: morphine 2 MG/ML inj. syringe IV PRN ×5 (02:44→23:27)
[2023-02-18] MEDS: acetaminophen 325mg tablet PO PRN (05:32)
[2023-02-18] MEDS: CefTRIAXone/D5W-Rocephin 1gm 50 ML IV SCH (07:00)
[2023-02-18 07:19] LABS: BASOPHILS % (AUTO) 0.5 % (0-1); EOSINOPHILS # (AUTO) 0.1 X10'3 (0-0.9); EOSINOPHILS % (AUTO) 1.5 % (0-6); HEMOGLOBIN 10.1 g/dl (14.0-17.9); LYMPHOCYTES # (AUTO) 0.8 X10'3 (1.1-4.8); LYMPHOCYTES % (AUTO) 10.9 % (21-51); MEAN CORPUSCULAR HEMOGLOBIN 26.2 PG (27.0-31.0); MEAN CORPUSCULAR HGB CONC 32.5 g/dL (33.0-36.5); MEAN CORPUSCULAR VOLUME 80.5 FL (78-98); MEAN PLATELET VOLUME 8.1 FL (7.4-10.4); MONOCYTES # (AUTO) 0.4 X10'3 (0-0.9); MONOCYTES % (AUTO) 5.5 % (2-12); NEUTROPHILS # (AUTO) 6.1 X10'3 (1.8-7.7); NEUTROPHILS % (AUTO) 81.6 % (42-75); PLATELET COUNT 230 X10'3 (140-440); RED BLOOD COUNT 3.85 X10'6 (4.70-6.10); RED CELL DISTRIBUTION WIDTH 17.5 % (11.5-14.5); WHITE BLOOD COUNT 7.4 X10'3 (4.5-11.0)
[2023-02-18 07:20] LABS: PROTHROMBIN TIME 10.3 SECONDS (9.0-12.0)
[2023-02-18 07:23] LABS: ALANINE AMINOTRANSFERASE 35 U/L (12-78); ALBUMIN/GLOBULIN RATIO 0.7 (1.1-1.5); ALKALINE PHOSPHATASE 130 IU/L (46-116); AMYLASE 100 U/L (25-115); ANION GAP 7 (8-16); ASPARTATE AMINO TRANSFERASE 29 U/L (10-37); BILIRUBIN,TOTAL 0.4 MG/DL (0.1-1.0); BLOOD UREA NITROGEN 12 MG/DL (7-18); BUN/CREATININE RATIO 13.3 (10.0-20.0); CALCIUM 8.2 MG/DL (8.5-10.1); CHLORIDE 105 MMOL/L (99-107); GLUCOSE 101 MG/DL (70-104); LIPASE 23 U/L (16-77); MAGNESIUM 1.7 MG/DL (1.5-2.4); PHOSPHORUS 3.6 MG/DL (2.3-4.5); POTASSIUM 4.1 MMOL/L (3.5-5.1); SODIUM 136 MMOL/L (135-145); TOTAL CARBON DIOXIDE 23.7 MMOL/L (24-32); VANCOMYCIN,TROUGH 19.1 ug/mL (10.0-20.0); eCRCL 89 ML/MIN; eGFR 85 ML/MIN
[2023-02-18] MEDS ORDERED: VANCOMYCIN LEVEL IV ONE (07:30)
[2023-02-18] MEDS: K and/or MAG REPLACEMENT MC SCH ×2 (08:00→20:00)
[2023-02-18] MEDS: normal saline 1000ml 1,000 ML IV SCH ×2 (08:47→21:41)
[2023-02-18] MEDS: vancomycin/NS 1 GM ADD-VANTAGE 250 ML IV SCH ×3 (09:08→23:30)
[2023-02-18] MEDS ORDERED: HYDROcodone/acetaminophen 5mg/325mg tablet PO PRN (11:10)
[2023-02-18] MEDS ORDERED: iohexol 350MG/ML 100ml bottle IV ONE (11:13)
[2023-02-18] MEDS: HYDROcodone/acetaminophen 10/325mg tab PO PRN ×2 (11:17→20:50)
[2023-02-18] MEDS ORDERED: LORazepam 1 MG tablet PO PRN (18:05)
[2023-02-19] VITALS (8 sets, daily range): BP systolic 94–148; BP diastolic 67–87; PULSE 83–104; RESP 14–20; TEMP 97.7–98.3; O2SAT 96–98
[2023-02-19] MEDS: HYDROcodone/acetaminophen 10/325mg tab PO PRN ×4 (02:02→19:52)
[2023-02-19] MEDS: morphine 2 MG/ML inj. syringe IV PRN ×4 (05:28→23:17)
[2023-02-19 06:21] LABS: BASOPHILS % (AUTO) 0.9 % (0-1); EOSINOPHILS # (AUTO) 0.3 X10'3 (0-0.9); EOSINOPHILS % (AUTO) 6.2 % (0-6); HEMATOCRIT 31.1 % (42.0-52.0); HEMOGLOBIN 10.2 g/dl (14.0-17.9); LYMPHOCYTES # (AUTO) 1.2 X10'3 (1.1-4.8); LYMPHOCYTES % (AUTO) 26.7 % (21-51); MEAN CORPUSCULAR HEMOGLOBIN 26.1 PG (27.0-31.0); MEAN CORPUSCULAR HGB CONC 32.6 g/dL (33.0-36.5); MEAN CORPUSCULAR VOLUME 80.1 FL (78-98); MEAN PLATELET VOLUME 8.2 FL (7.4-10.4); MONOCYTES # (AUTO) 0.4 X10'3 (0-0.9); NEUTROPHILS # (AUTO) 2.7 X10'3 (1.8-7.7); NEUTROPHILS % (AUTO) 58.2 % (42-75); PLATELET COUNT 265 X10'3 (140-440); RED BLOOD COUNT 3.89 X10'6 (4.70-6.10); RED CELL DISTRIBUTION WIDTH 17.3 % (11.5-14.5); WHITE BLOOD COUNT 4.6 X10'3 (4.5-11.0)
[2023-02-19 06:22] LABS: PROTHROMBIN TIME 9.8 SECONDS (9.0-12.0)
[2023-02-19 06:30] LABS: ALANINE AMINOTRANSFERASE 32 U/L (12-78); ALBUMIN 2.1 G/DL (3.4-5.0); ALBUMIN/GLOBULIN RATIO 0.6 (1.1-1.5); ALKALINE PHOSPHATASE 126 IU/L (46-116); AMYLASE 128 U/L (25-115); ANION GAP 5 (8-16); ASPARTATE AMINO TRANSFERASE 17 U/L (10-37); BILIRUBIN,TOTAL 0.2 MG/DL (0.1-1.0); BLOOD UREA NITROGEN 11 MG/DL (7-18); BUN/CREATININE RATIO 10.4 (10.0-20.0); CALCIUM 8.4 MG/DL (8.5-10.1); CHLORIDE 108 MMOL/L (99-107); CREATININE 1.06 MG/DL (0.60-1.10); GLUCOSE 91 MG/DL (70-104); LIPASE 21 U/L (16-77); MAGNESIUM 1.8 MG/DL (1.5-2.4); PHOSPHORUS 4.8 MG/DL (2.3-4.5); POTASSIUM 4.4 MMOL/L (3.5-5.1); SODIUM 140 MMOL/L (135-145); TOTAL CARBON DIOXIDE 27.2 MMOL/L (24-32); TOTAL PROTEIN 5.4 G/DL (6.4-8.2); eCRCL 76 ML/MIN; eGFR 71 ML/MIN
[2023-02-19 06:43] LABS: INR 0.9 INR
[2023-02-19] MEDS: CefTRIAXone/D5W-Rocephin 1gm 50 ML IV SCH (07:25)
[2023-02-19] MEDS: K and/or MAG REPLACEMENT MC SCH ×2 (08:00→19:25)
[2023-02-19] MEDS: normal saline 1000ml 1,000 ML IV SCH ×2 (09:47→22:17)
[2023-02-19] MEDS: vancomycin/NS 1 GM ADD-VANTAGE 250 ML IV SCH ×2 (10:59→16:07)
[2023-02-19 13:22] LABS: OCCULT BLOOD STOOL POSITIVE (Neg)
[2023-02-19 16:35] LABS: HEMATOCRIT 30.8 % (42.0-52.0); HEMOGLOBIN 9.9 g/dl (14.0-17.9); MEAN CORPUSCULAR HEMOGLOBIN 25.8 PG (27.0-31.0); MEAN CORPUSCULAR HGB CONC 32.1 g/dL (33.0-36.5); MEAN CORPUSCULAR VOLUME 80.5 FL (78-98); MEAN PLATELET VOLUME 8.2 FL (7.4-10.4); PLATELET COUNT 261 X10'3 (140-440); RED BLOOD COUNT 3.83 X10'6 (4.70-6.10); RED CELL DISTRIBUTION WIDTH 17.1 % (11.5-14.5); WHITE BLOOD COUNT 5.1 X10'3 (4.5-11.0)
[2023-02-20] VITALS (7 sets, daily range): BP systolic 103–140; BP diastolic 62–82; PULSE 88–104; RESP 18–19; TEMP 97.4–98.2; O2SAT 95–98
[2023-02-20] MEDS: vancomycin/NS 1 GM ADD-VANTAGE 250 ML IV SCH ×2 (00:46→08:46)
[2023-02-20] MEDS: HYDROcodone/acetaminophen 10/325mg tab PO PRN ×4 (02:44→20:43)
[2023-02-20] MEDS: morphine 2 MG/ML inj. syringe IV PRN ×4 (05:07→17:07)
[2023-02-20 06:19] LABS: INR 0.9 INR
[2023-02-20 06:26] LABS: ALANINE AMINOTRANSFERASE 21 U/L (12-78); ALBUMIN 2.1 G/DL (3.4-5.0); ALBUMIN/GLOBULIN RATIO 0.6 (1.1-1.5); ALKALINE PHOSPHATASE 116 IU/L (46-116); AMYLASE 134 U/L (25-115); ANION GAP 5 (8-16); ASPARTATE AMINO TRANSFERASE 15 U/L (10-37); BILIRUBIN,TOTAL 0.2 MG/DL (0.1-1.0); BLOOD UREA NITROGEN 15 MG/DL (7-18); BUN/CREATININE RATIO 12.8 (10.0-20.0); CALCIUM 8.6 MG/DL (8.5-10.1); CHLORIDE 106 MMOL/L (99-107); CREATININE 1.17 MG/DL (0.60-1.10); GLUCOSE 89 MG/DL (70-104); LIPASE 20 U/L (16-77); MAGNESIUM 1.7 MG/DL (1.5-2.4); PHOSPHORUS 4.4 MG/DL (2.3-4.5); POTASSIUM 4.9 MMOL/L (3.5-5.1); SODIUM 140 MMOL/L (135-145); TOTAL CARBON DIOXIDE 29.4 MMOL/L (24-32); TOTAL PROTEIN 5.4 G/DL (6.4-8.2); eCRCL 69 ML/MIN; eGFR 63 ML/MIN
[2023-02-20 06:35] LABS: BASOPHILS % (AUTO) 0.8 % (0-1); EOSINOPHILS # (AUTO) 0.4 X10'3 (0-0.9); EOSINOPHILS % (AUTO) 7.1 % (0-6); HEMATOCRIT 30.6 % (42.0-52.0); HEMOGLOBIN 9.9 g/dl (14.0-17.9); LYMPHOCYTES # (AUTO) 1.4 X10'3 (1.1-4.8); LYMPHOCYTES % (AUTO) 24.5 % (21-51); MEAN CORPUSCULAR HEMOGLOBIN 26.3 PG (27.0-31.0); MEAN CORPUSCULAR HGB CONC 32.5 g/dL (33.0-36.5); MEAN CORPUSCULAR VOLUME 80.9 FL (78-98); MEAN PLATELET VOLUME 8.3 FL (7.4-10.4); MONOCYTES # (AUTO) 0.4 X10'3 (0-0.9); MONOCYTES % (AUTO) 7.7 % (2-12); NEUTROPHILS # (AUTO) 3.4 X10'3 (1.8-7.7); NEUTROPHILS % (AUTO) 59.9 % (42-75); PLATELET COUNT 271 X10'3 (140-440); RED BLOOD COUNT 3.78 X10'6 (4.70-6.10); RED CELL DISTRIBUTION WIDTH 17.3 % (11.5-14.5); WHITE BLOOD COUNT 5.7 X10'3 (4.5-11.0)
[2023-02-20] MEDS: K and/or MAG REPLACEMENT MC SCH ×2 (08:00→18:43)
[2023-02-20] MEDS: CefTRIAXone/D5W-Rocephin 1gm 50 ML IV SCH (08:46)
[2023-02-20] MEDS: normal saline 1000ml 1,000 ML IV SCH ×2 (09:59→20:46)
[2023-02-20] MEDS ORDERED: pantoprazole 40mg IV 80 MG in normal saline 100ml IV soln 100 ML IV ONE (10:30)
[2023-02-20] MEDS ORDERED: pantoprazole 40 MG vial IV ONE (10:35)
[2023-02-20] MEDS ORDERED: PEG 3350/Na sulf,bicarb,Cl/KCl oral sol 4 liter bottle PO ONE (11:35)
[2023-02-20] MEDS: pantoprazole 40MG/NS 100ML BAG 100 ML IV SCH ×3 (11:41→21:06)
[2023-02-20 19:07] LABS: OSMOLALITY 292 MOSM/K (280-300)
[2023-02-21] VITALS (14 sets, daily range): BP systolic 78–140; BP diastolic 49–78; PULSE 70–106; RESP 11–20; TEMP 97–98.7; O2SAT 94–100
[2023-02-21] MEDS: pantoprazole 40MG/NS 100ML BAG 100 ML IV SCH ×5 (01:00→19:55)
[2023-02-21] MEDS: HYDROcodone/acetaminophen 10/325mg tab PO PRN ×5 (02:36→19:46)
[2023-02-21] MEDS: normal saline 1000ml 1,000 ML IV SCH ×3 (03:28→16:31)
[2023-02-21 06:53] LABS: BASOPHILS % (AUTO) 0.7 % (0-1); EOSINOPHILS # (AUTO) 0.4 X10'3 (0-0.9); HEMATOCRIT 29.2 % (42.0-52.0); HEMOGLOBIN 9.5 g/dl (14.0-17.9); LYMPHOCYTES # (AUTO) 1.3 X10'3 (1.1-4.8); LYMPHOCYTES % (AUTO) 23.1 % (21-51); MEAN CORPUSCULAR HEMOGLOBIN 26.2 PG (27.0-31.0); MEAN CORPUSCULAR HGB CONC 32.7 g/dL (33.0-36.5); MEAN CORPUSCULAR VOLUME 80.1 FL (78-98); MEAN PLATELET VOLUME 7.5 FL (7.4-10.4); MONOCYTES # (AUTO) 0.5 X10'3 (0-0.9); MONOCYTES % (AUTO) 8.7 % (2-12); NEUTROPHILS # (AUTO) 3.3 X10'3 (1.8-7.7); NEUTROPHILS % (AUTO) 60.5 % (42-75); PLATELET COUNT 284 X10'3 (140-440); RED BLOOD COUNT 3.65 X10'6 (4.70-6.10); RED CELL DISTRIBUTION WIDTH 17.2 % (11.5-14.5); WHITE BLOOD COUNT 5.5 X10'3 (4.5-11.0)
[2023-02-21 07:01] LABS: INR 0.9 INR; PROTHROMBIN TIME 10.1 SECONDS (9.0-12.0)
[2023-02-21 07:18] LABS: ALANINE AMINOTRANSFERASE 17 U/L (12-78); ALBUMIN 2.2 G/DL (3.4-5.0); ALBUMIN/GLOBULIN RATIO 0.6 (1.1-1.5); ALKALINE PHOSPHATASE 118 IU/L (46-116); AMYLASE 111 U/L (25-115); ANION GAP 6 (8-16); ASPARTATE AMINO TRANSFERASE 12 U/L (10-37); BILIRUBIN,TOTAL 0.3 MG/DL (0.1-1.0); BLOOD UREA NITROGEN 12 MG/DL (7-18); BUN/CREATININE RATIO 11.5 (10.0-20.0); CALCIUM 8.9 MG/DL (8.5-10.1); CHLORIDE 107 MMOL/L (99-107); CREATININE 1.04 MG/DL (0.60-1.10); GLUCOSE 105 MG/DL (70-104); LIPASE 12 U/L (16-77); PHOSPHORUS 4.8 MG/DL (2.3-4.5); POTASSIUM 4.4 MMOL/L (3.5-5.1); SODIUM 140 MMOL/L (135-145); TOTAL CARBON DIOXIDE 26.7 MMOL/L (24-32); TOTAL PROTEIN 5.7 G/DL (6.4-8.2); eCRCL 77 ML/MIN; eGFR 72 ML/MIN
[2023-02-21] MEDS: K and/or MAG REPLACEMENT MC SCH ×2 (08:00→20:00)
[2023-02-21] MEDS ORDERED: MIDAZolam 1 MG/ML 5ML VIAL ONE (11:57)
[2023-02-21] MEDS ORDERED: fentaNYL/PF 50MCG/1 ML 2ML syringe ONE (11:57)
[2023-02-21] MEDS ORDERED: LIDOcaine Viscous 15ml cup ONE (12:01)
[2023-02-21] MEDS ORDERED: gabapentin 400mg capsule PO SCH (21:00)
[2023-02-22] MEDS: temazepam 15mg capsule PO PRN ×2 (00:59→19:47)
[2023-02-22] MEDS: gabapentin 300mg capsule PO SCH ×2 (01:00→19:47)
[2023-02-22] MEDS: normal saline 1000ml 1,000 ML IV SCH ×3 (01:01→12:39)
[2023-02-22] MEDS: pantoprazole 40MG/NS 100ML BAG 100 ML IV SCH ×5 (01:07→21:54)
[2023-02-22 02:00] VITALS: BP 116/68; PULSE 90; RESP 18; TEMP 98.2; O2SAT 90
[2023-02-22] MEDS: HYDROcodone/acetaminophen 10/325mg tab PO PRN ×6 (05:16→22:09)
[2023-02-22 06:45] LABS: BASOPHILS % (AUTO) 0.9 % (0-1); EOSINOPHILS # (AUTO) 0.5 X10'3 (0-0.9); EOSINOPHILS % (AUTO) 13.2 % (0-6); HEMATOCRIT 25.9 % (42.0-52.0); HEMOGLOBIN 8.3 g/dl (14.0-17.9); LYMPHOCYTES # (AUTO) 0.8 X10'3 (1.1-4.8); LYMPHOCYTES % (AUTO) 23.3 % (21-51); MEAN CORPUSCULAR HEMOGLOBIN 25.8 PG (27.0-31.0); MEAN CORPUSCULAR HGB CONC 31.9 g/dL (33.0-36.5); MEAN CORPUSCULAR VOLUME 80.9 FL (78-98); MEAN PLATELET VOLUME 7.6 FL (7.4-10.4); MONOCYTES # (AUTO) 0.3 X10'3 (0-0.9); MONOCYTES % (AUTO) 9.4 % (2-12); NEUTROPHILS # (AUTO) 1.9 X10'3 (1.8-7.7); NEUTROPHILS % (AUTO) 53.2 % (42-75); PLATELET COUNT 248 X10'3 (140-440); RED CELL DISTRIBUTION WIDTH 17.2 % (11.5-14.5); WHITE BLOOD COUNT 3.6 X10'3 (4.5-11.0)
[2023-02-22 06:52] LABS: % IRON SATURATION 7 % (11-46); IRON 18 UG/DL (53-167); TOTAL IRON BINDING CAPACITY 252 UG/DL (259-388)
[2023-02-22 06:59] LABS: ALANINE AMINOTRANSFERASE 18 U/L (12-78); ALBUMIN 1.9 G/DL (3.4-5.0); ALBUMIN/GLOBULIN RATIO 0.6 (1.1-1.5); ALKALINE PHOSPHATASE 102 IU/L (46-116); ANION GAP 6 (8-16); ASPARTATE AMINO TRANSFERASE 16 U/L (10-37); BILIRUBIN,TOTAL 0.2 MG/DL (0.1-1.0); BLOOD UREA NITROGEN 6 MG/DL (7-18); BUN/CREATININE RATIO 6.6 (10.0-20.0); CALCIUM 8.4 MG/DL (8.5-10.1); CHLORIDE 107 MMOL/L (99-107); CREATININE 0.91 MG/DL (0.60-1.10); FERRITIN 35 NG/ML (26-388); GLUCOSE 93 MG/DL (70-104); POTASSIUM 4.2 MMOL/L (3.5-5.1); SODIUM 141 MMOL/L (135-145); TOTAL CARBON DIOXIDE 28.3 MMOL/L (24-32); TOTAL PROTEIN 4.9 G/DL (6.4-8.2); eCRCL 88 ML/MIN; eGFR 84 ML/MIN
[2023-02-22 07:19] VITALS: BP 129/65; PULSE 84; RESP 18; TEMP 98; O2SAT 96
[2023-02-22] MEDS: K and/or MAG REPLACEMENT MC SCH ×2 (08:26→19:52)
[2023-02-22 08:30] VITALS: RESP 18; O2SAT 96
[2023-02-22 11:16] VITALS: BP 140/87; PULSE 83; RESP 20; TEMP 97.4; O2SAT 98
[2023-02-22] MEDS ORDERED: iron dextran complex inj. 25 MG in normal saline 50ml IV soln 49.5 ML IV ONE (12:45)
[2023-02-22] MEDS ORDERED: furosemide 40mg/4ml inj IV ONE (12:45)
[2023-02-22] MEDS ORDERED: iron dextran complex inj. 25 MG in normal saline 50ml IV soln 50 ML IV ONE (12:50)
[2023-02-22] MEDS ORDERED: iron dextran complex inj. 25 MG in normal saline 50ml IV soln 100 ML IV ONE (12:52)
[2023-02-22] MEDS ORDERED: NYSTATIN 30 GM POWDER TP SCH (13:00)
[2023-02-22] MEDS: nystatin 15 GM powder TP SCH ×2 (13:25→21:54)
[2023-02-22 16:07] VITALS: BP 146/75; PULSE 90; RESP 19; TEMP 97.7; O2SAT 98
[2023-02-22] MEDS: acetaminophen 325mg tablet PO PRN (19:50)
[2023-02-22 20:00] VITALS: RESP 18; O2SAT 96
[2023-02-23] VITALS (7 sets, daily range): BP systolic 104–119; BP diastolic 53–70; PULSE 81–108; RESP 16–21; TEMP 97.5–98.3; O2SAT 94–97
[2023-02-23] MEDS: HYDROcodone/acetaminophen 10/325mg tab PO PRN ×4 (02:31→21:32)
[2023-02-23] MEDS: pantoprazole 40MG/NS 100ML BAG 100 ML IV SCH ×5 (02:38→20:14)
[2023-02-23] MEDS: iron dextran complex inj. 100 MG in normal saline 100ml IV soln 100 ML IV SCH (07:25)
[2023-02-23] MEDS: nystatin 15 GM powder TP SCH ×3 (07:32→20:14)
[2023-02-23] MEDS: K and/or MAG REPLACEMENT MC SCH ×2 (08:00→20:00)
[2023-02-23 08:27] LABS: ALANINE AMINOTRANSFERASE 16 U/L (12-78); ALBUMIN 2.1 G/DL (3.4-5.0); ALBUMIN/GLOBULIN RATIO 0.6 (1.1-1.5); ALKALINE PHOSPHATASE 114 IU/L (46-116); ANION GAP 5 (8-16); ASPARTATE AMINO TRANSFERASE 19 U/L (10-37); BILIRUBIN,TOTAL 0.2 MG/DL (0.1-1.0); BLOOD UREA NITROGEN 9 MG/DL (7-18); BUN/CREATININE RATIO 8.3 (10.0-20.0); CHLORIDE 106 MMOL/L (99-107); CREATININE 1.08 MG/DL (0.60-1.10); GLUCOSE 94 MG/DL (70-104); SODIUM 142 MMOL/L (135-145); TOTAL CARBON DIOXIDE 30.8 MMOL/L (24-32); TOTAL PROTEIN 5.4 G/DL (6.4-8.2); eCRCL 75 ML/MIN; eGFR 69 ML/MIN
[2023-02-23] MEDS: morphine 2 MG/ML inj. syringe IV PRN (10:43)
[2023-02-23 12:54] LABS: BASOPHILS % (AUTO) 0.9 % (0-1); EOSINOPHILS # (AUTO) 0.4 X10'3 (0-0.9); EOSINOPHILS % (AUTO) 12.2 % (0-6); HEMATOCRIT 26.5 % (42.0-52.0); HEMOGLOBIN 8.4 g/dl (14.0-17.9); LYMPHOCYTES # (AUTO) 0.8 X10'3 (1.1-4.8); LYMPHOCYTES % (AUTO) 25.2 % (21-51); MEAN CORPUSCULAR HEMOGLOBIN 25.7 PG (27.0-31.0); MEAN CORPUSCULAR HGB CONC 31.8 g/dL (33.0-36.5); MEAN CORPUSCULAR VOLUME 80.8 FL (78-98); MEAN PLATELET VOLUME 7.5 FL (7.4-10.4); MONOCYTES # (AUTO) 0.3 X10'3 (0-0.9); MONOCYTES % (AUTO) 10.1 % (2-12); NEUTROPHILS # (AUTO) 1.7 X10'3 (1.8-7.7); NEUTROPHILS % (AUTO) 51.6 % (42-75); PLATELET COUNT 238 X10'3 (140-440); RED BLOOD COUNT 3.28 X10'6 (4.70-6.10); WHITE BLOOD COUNT 3.3 X10'3 (4.5-11.0)
[2023-02-23] MEDS: temazepam 15mg capsule PO PRN (20:14)
[2023-02-23] MEDS: gabapentin 300mg capsule PO SCH (20:14)
[2023-02-24] VITALS (7 sets, daily range): BP systolic 110–137; BP diastolic 59–65; PULSE 62–120; RESP 14–21; TEMP 97.9–98.6; O2SAT 94–100
[2023-02-24] MEDS: pantoprazole 40MG/NS 100ML BAG 100 ML IV SCH ×5 (00:52→21:36)
[2023-02-24 05:31] LABS: SODIUM,URINE RANDOM 35 MEQ/L
[2023-02-24 05:41] LABS: OSMOLALITY UA < 100 MOSM/K (50-1400)
[2023-02-24] MEDS: HYDROcodone/acetaminophen 10/325mg tab PO PRN ×3 (06:48→21:35)
[2023-02-24] MEDS: nystatin 15 GM powder TP SCH ×3 (07:00→21:36)
[2023-02-24] MEDS: iron dextran complex inj. 100 MG in normal saline 100ml IV soln 100 ML IV SCH (07:00)
[2023-02-24] MEDS: K and/or MAG REPLACEMENT MC SCH ×2 (08:00→20:00)
[2023-02-24 08:18] LABS: BASOPHILS % (AUTO) 0.8 % (0-1); EOSINOPHILS # (AUTO) 0.4 X10'3 (0-0.9); EOSINOPHILS % (AUTO) 8.8 % (0-6); HEMATOCRIT 28.6 % (42.0-52.0); HEMOGLOBIN 9.1 g/dl (14.0-17.9); LYMPHOCYTES # (AUTO) 0.8 X10'3 (1.1-4.8); LYMPHOCYTES % (AUTO) 18.8 % (21-51); MEAN CORPUSCULAR HEMOGLOBIN 25.8 PG (27.0-31.0); MEAN CORPUSCULAR HGB CONC 31.8 g/dL (33.0-36.5); MEAN PLATELET VOLUME 7.4 FL (7.4-10.4); MONOCYTES # (AUTO) 0.4 X10'3 (0-0.9); MONOCYTES % (AUTO) 10.2 % (2-12); NEUTROPHILS # (AUTO) 2.6 X10'3 (1.8-7.7); NEUTROPHILS % (AUTO) 61.4 % (42-75); PLATELET COUNT 283 X10'3 (140-440); RED BLOOD COUNT 3.53 X10'6 (4.70-6.10); WHITE BLOOD COUNT 4.3 X10'3 (4.5-11.0)
[2023-02-24 08:35] LABS: ALANINE AMINOTRANSFERASE 18 U/L (12-78); ALBUMIN 2.4 G/DL (3.4-5.0); ALBUMIN/GLOBULIN RATIO 0.7 (1.1-1.5); ALKALINE PHOSPHATASE 117 IU/L (46-116); ANION GAP 8 (8-16); ASPARTATE AMINO TRANSFERASE 16 U/L (10-37); BILIRUBIN,TOTAL 0.2 MG/DL (0.1-1.0); BLOOD UREA NITROGEN 14 MG/DL (7-18); BUN/CREATININE RATIO 14.4 (10.0-20.0); CALCIUM 9.1 MG/DL (8.5-10.1); CHLORIDE 104 MMOL/L (99-107); CREATININE 0.97 MG/DL (0.60-1.10); GLUCOSE 100 MG/DL (70-104); POTASSIUM 4.2 MMOL/L (3.5-5.1); SODIUM 141 MMOL/L (135-145); TOTAL CARBON DIOXIDE 29.3 MMOL/L (24-32); TOTAL PROTEIN 5.9 G/DL (6.4-8.2); eCRCL 83 ML/MIN; eGFR 78 ML/MIN
[2023-02-24] MEDS: gabapentin 300mg capsule PO SCH (21:35)
[2023-02-24] MEDS: temazepam 15mg capsule PO PRN (21:35)
[2023-02-25] VITALS (7 sets, daily range): BP systolic 111–131; BP diastolic 60–86; PULSE 91–99; RESP 12–21; TEMP 97.5–98.2; O2SAT 95–97
[2023-02-25] MEDS: pantoprazole 40MG/NS 100ML BAG 100 ML IV SCH ×5 (00:47→17:09)
[2023-02-25] MEDS: HYDROcodone/acetaminophen 10/325mg tab PO PRN ×3 (06:56→20:26)
[2023-02-25] MEDS: nystatin 15 GM powder TP SCH ×3 (07:01→20:27)
[2023-02-25] MEDS: K and/or MAG REPLACEMENT MC SCH ×2 (08:00→20:00)
[2023-02-25] MEDS: iron dextran complex inj. 100 MG in normal saline 100ml IV soln 100 ML IV SCH (08:57)
[2023-02-25] MEDS: gabapentin 300mg capsule PO SCH (20:25)
[2023-02-25] MEDS: temazepam 15mg capsule PO PRN (20:26)
[2023-02-26] VITALS (7 sets, daily range): BP systolic 99–130; BP diastolic 53–84; PULSE 80–95; RESP 16–21; TEMP 97–98.5; O2SAT 94–100
[2023-02-26] MEDS: pantoprazole 40MG/NS 100ML BAG 100 ML IV SCH ×3 (00:48→10:55)
[2023-02-26] MEDS: HYDROcodone/acetaminophen 10/325mg tab PO PRN ×4 (00:53→21:17)
[2023-02-26] MEDS: nystatin 15 GM powder TP SCH ×3 (07:16→21:18)
[2023-02-26] MEDS: iron dextran complex inj. 100 MG in normal saline 100ml IV soln 100 ML IV SCH (07:55)
[2023-02-26] MEDS: K and/or MAG REPLACEMENT MC SCH ×2 (08:00→20:00)
[2023-02-26] MEDS: gabapentin 300mg capsule PO SCH (21:17)
[2023-02-26] MEDS: pantoprazole 40mg Tablet.DR PO SCH (21:20)
[2023-02-26] MEDS: temazepam 15mg capsule PO PRN (21:43)
[2023-02-27 02:00] VITALS: BP 130/80; PULSE 90; RESP 20; TEMP 97.4; O2SAT 94
[2023-02-27] MEDS: HYDROcodone/acetaminophen 10/325mg tab PO PRN ×4 (02:22→18:47)
[2023-02-27 07:10] LABS: BASOPHILS # (AUTO) 0.1 X10'3 (0-0.2); BASOPHILS % (AUTO) 0.8 % (0-1); EOSINOPHILS # (AUTO) 0.4 X10'3 (0-0.9); EOSINOPHILS % (AUTO) 7.1 % (0-6); HEMATOCRIT 30.7 % (42.0-52.0); HEMOGLOBIN 9.8 g/dl (14.0-17.9); LYMPHOCYTES # (AUTO) 1.1 X10'3 (1.1-4.8); LYMPHOCYTES % (AUTO) 17.8 % (21-51); MEAN CORPUSCULAR HEMOGLOBIN 25.9 PG (27.0-31.0); MEAN CORPUSCULAR HGB CONC 31.8 g/dL (33.0-36.5); MEAN CORPUSCULAR VOLUME 81.2 FL (78-98); MEAN PLATELET VOLUME 7.6 FL (7.4-10.4); MONOCYTES # (AUTO) 0.8 X10'3 (0-0.9); MONOCYTES % (AUTO) 13.4 % (2-12); NEUTROPHILS # (AUTO) 3.6 X10'3 (1.8-7.7); NEUTROPHILS % (AUTO) 60.9 % (42-75); PLATELET COUNT 371 X10'3 (140-440); RED BLOOD COUNT 3.79 X10'6 (4.70-6.10); RED CELL DISTRIBUTION WIDTH 17.2 % (11.5-14.5)
[2023-02-27 07:32] LABS: ALANINE AMINOTRANSFERASE 18 U/L (12-78); ALBUMIN 2.6 G/DL (3.4-5.0); ALBUMIN/GLOBULIN RATIO 0.7 (1.1-1.5); ALKALINE PHOSPHATASE 109 IU/L (46-116); ANION GAP 6 (8-16); ASPARTATE AMINO TRANSFERASE 15 U/L (10-37); BILIRUBIN,TOTAL 0.2 MG/DL (0.1-1.0); BLOOD UREA NITROGEN 20 MG/DL (7-18); CALCIUM 9.5 MG/DL (8.5-10.1); CHLORIDE 104 MMOL/L (99-107); GLUCOSE 100 MG/DL (70-104); POTASSIUM 4.3 MMOL/L (3.5-5.1); SODIUM 140 MMOL/L (135-145); TOTAL CARBON DIOXIDE 29.7 MMOL/L (24-32); TOTAL PROTEIN 6.4 G/DL (6.4-8.2); eCRCL 81 ML/MIN; eGFR 75 ML/MIN
[2023-02-27 08:00] VITALS: RESP 22; O2SAT 97
[2023-02-27] MEDS: K and/or MAG REPLACEMENT MC SCH ×2 (08:00→20:00)
[2023-02-27] MEDS: pantoprazole 40mg Tablet.DR PO SCH ×2 (08:32→20:08)
[2023-02-27] MEDS: nystatin 15 GM powder TP SCH ×3 (08:33→20:09)
[2023-02-27] MEDS: iron dextran complex inj. 100 MG in normal saline 100ml IV soln 100 ML IV SCH (08:33)
[2023-02-27 14:00] VITALS: RESP 16; O2SAT 97
[2023-02-27] MEDS: ascorbic acid 500mg tablet PO SCH (17:30)
[2023-02-27 18:00] VITALS: BP 106/62; PULSE 110; RESP 18; TEMP 98.2; O2SAT 97
[2023-02-27 20:00] VITALS: RESP 18; O2SAT 97
[2023-02-27] MEDS: ferrous sulfate 325mg tablet PO SCH (20:08)
[2023-02-27] MEDS: gabapentin 300mg capsule PO SCH (20:09)
[2023-02-27] MEDS: temazepam 15mg capsule PO PRN (20:12)
[2023-02-27 22:00] VITALS: BP 122/74; PULSE 106; RESP 16; TEMP 98.5; O2SAT 96
[2023-02-28] MEDS: HYDROcodone/acetaminophen 10/325mg tab PO PRN ×4 (03:40→20:17)
[2023-02-28 04:00] LABS: BASOPHILS # (AUTO) 0.1 X10'3 (0-0.2); BASOPHILS % (AUTO) 1.2 % (0-1); EOSINOPHILS # (AUTO) 0.4 X10'3 (0-0.9); EOSINOPHILS % (AUTO) 8.2 % (0-6); HEMATOCRIT 29.9 % (42.0-52.0); HEMOGLOBIN 9.7 g/dl (14.0-17.9); LYMPHOCYTES # (AUTO) 1.1 X10'3 (1.1-4.8); LYMPHOCYTES % (AUTO) 23.7 % (21-51); MEAN CORPUSCULAR HEMOGLOBIN 26.5 PG (27.0-31.0); MEAN CORPUSCULAR HGB CONC 32.5 g/dL (33.0-36.5); MEAN CORPUSCULAR VOLUME 81.7 FL (78-98); MEAN PLATELET VOLUME 7.4 FL (7.4-10.4); MONOCYTES # (AUTO) 0.7 X10'3 (0-0.9); NEUTROPHILS # (AUTO) 2.6 X10'3 (1.8-7.7); NEUTROPHILS % (AUTO) 52.9 % (42-75); PLATELET COUNT 409 X10'3 (140-440); RED BLOOD COUNT 3.66 X10'6 (4.70-6.10); RED CELL DISTRIBUTION WIDTH 17.9 % (11.5-14.5); WHITE BLOOD COUNT 4.8 X10'3 (4.5-11.0)
[2023-02-28 04:15] LABS: ALANINE AMINOTRANSFERASE 19 U/L (12-78); ALBUMIN 2.7 G/DL (3.4-5.0); ALBUMIN/GLOBULIN RATIO 0.8 (1.1-1.5); ALKALINE PHOSPHATASE 100 IU/L (46-116); ANION GAP 3 (8-16); ASPARTATE AMINO TRANSFERASE 12 U/L (10-37); BILIRUBIN,TOTAL 0.2 MG/DL (0.1-1.0); BLOOD UREA NITROGEN 21 MG/DL (7-18); BUN/CREATININE RATIO 22.6 (10.0-20.0); CALCIUM 7.8 MG/DL (8.5-10.1); CHLORIDE 101 MMOL/L (99-107); CREATININE 0.93 MG/DL (0.60-1.10); GLUCOSE 100 MG/DL (70-104); POTASSIUM 4.1 MMOL/L (3.5-5.1); SODIUM 136 MMOL/L (135-145); TOTAL CARBON DIOXIDE 31.8 MMOL/L (24-32); TOTAL PROTEIN 6.2 G/DL (6.4-8.2); eCRCL 87 ML/MIN; eGFR 82 ML/MIN
[2023-02-28] MEDS: ferrous sulfate 325mg tablet PO SCH ×2 (07:50→20:17)
[2023-02-28] MEDS: ascorbic acid 500mg tablet PO SCH ×2 (07:50→17:37)
[2023-02-28] MEDS: pantoprazole 40mg Tablet.DR PO SCH ×2 (07:50→20:17)
[2023-02-28] MEDS: nystatin 15 GM powder TP SCH ×3 (07:51→20:20)
[2023-02-28] MEDS: K and/or MAG REPLACEMENT MC SCH ×2 (08:00→20:00)
[2023-02-28 10:00] VITALS: BP 102/69; PULSE 92; RESP 16; TEMP 98.7; O2SAT 98
[2023-02-28 15:17] VITALS: RESP 20
[2023-02-28 18:00] VITALS: BP 110/68; PULSE 88; RESP 16; TEMP 97.9; O2SAT 96
[2023-02-28] MEDS: temazepam 15mg capsule PO PRN (20:16)
[2023-02-28] MEDS: gabapentin 300mg capsule PO SCH (20:17)
[2023-02-28 22:00] VITALS: BP 104/63; PULSE 99; RESP 22; TEMP 98.2; O2SAT 91
[2023-03-01] MEDS: HYDROcodone/acetaminophen 10/325mg tab PO PRN ×4 (03:35→17:32)
[2023-03-01 06:00] VITALS: BP 97/62; PULSE 90; RESP 18; TEMP 97.7; O2SAT 96
[2023-03-01 07:00] LABS: ALANINE AMINOTRANSFERASE 20 U/L (12-78); ALBUMIN 3.1 G/DL (3.4-5.0); ALBUMIN/GLOBULIN RATIO 0.8 (1.1-1.5); ALKALINE PHOSPHATASE 125 IU/L (46-116); ANION GAP 6 (8-16); ASPARTATE AMINO TRANSFERASE 26 U/L (10-37); BILIRUBIN,TOTAL 0.2 MG/DL (0.1-1.0); BLOOD UREA NITROGEN 24 MG/DL (7-18); BUN/CREATININE RATIO 23.3 (10.0-20.0); CALCIUM 9.3 MG/DL (8.5-10.1); CHLORIDE 101 MMOL/L (99-107); CREATININE 1.03 MG/DL (0.60-1.10); GLUCOSE 87 MG/DL (70-104); POTASSIUM 3.9 MMOL/L (3.5-5.1); SODIUM 138 MMOL/L (135-145); TOTAL CARBON DIOXIDE 30.8 MMOL/L (24-32); TOTAL PROTEIN 7.1 G/DL (6.4-8.2); eCRCL 78 ML/MIN; eGFR 73 ML/MIN
[2023-03-01 07:05] LABS: BASOPHILS # (AUTO) 0.1 X10'3 (0-0.2); BASOPHILS % (AUTO) 1.3 % (0-1); EOSINOPHILS # (AUTO) 0.5 X10'3 (0-0.9); EOSINOPHILS % (AUTO) 9.4 % (0-6); HEMATOCRIT 32.5 % (42.0-52.0); HEMOGLOBIN 10.5 g/dl (14.0-17.9); LYMPHOCYTES % (AUTO) 20.4 % (21-51); MEAN CORPUSCULAR HEMOGLOBIN 26.4 PG (27.0-31.0); MEAN CORPUSCULAR HGB CONC 32.2 g/dL (33.0-36.5); MEAN CORPUSCULAR VOLUME 82.2 FL (78-98); MEAN PLATELET VOLUME 7.6 FL (7.4-10.4); MONOCYTES # (AUTO) 0.6 X10'3 (0-0.9); MONOCYTES % (AUTO) 12.2 % (2-12); NEUTROPHILS # (AUTO) 2.9 X10'3 (1.8-7.7); NEUTROPHILS % (AUTO) 56.7 % (42-75); PLATELET COUNT 474 X10'3 (140-440); RED BLOOD COUNT 3.96 X10'6 (4.70-6.10); WHITE BLOOD COUNT 5.1 X10'3 (4.5-11.0)
[2023-03-01 08:00] VITALS: RESP 18; O2SAT 96
[2023-03-01] MEDS: nystatin 15 GM powder TP SCH ×3 (08:00→20:18)
[2023-03-01] MEDS: K and/or MAG REPLACEMENT MC SCH ×2 (08:00→20:00)
[2023-03-01] MEDS: pantoprazole 40mg Tablet.DR PO SCH ×2 (08:03→20:18)
[2023-03-01] MEDS: ferrous sulfate 325mg tablet PO SCH ×2 (08:03→20:18)
[2023-03-01] MEDS: ascorbic acid 500mg tablet PO SCH ×2 (08:03→17:33)
[2023-03-01 10:00] VITALS: BP 107/73; PULSE 89; RESP 16; TEMP 98; O2SAT 97
[2023-03-01 18:00] VITALS: BP 109/62; PULSE 85; RESP 16; TEMP 98.5; O2SAT 96
[2023-03-01] MEDS: gabapentin 300mg capsule PO SCH (20:18)
[2023-03-01] MEDS: temazepam 15mg capsule PO PRN (20:18)
[2023-03-01 22:00] VITALS: BP 118/72; PULSE 82; RESP 18; TEMP 97.7; O2SAT 96
[2023-03-02] MEDS: HYDROcodone/acetaminophen 10/325mg tab PO PRN ×4 (00:26→15:03)
[2023-03-02 06:00] VITALS: BP 130/58; PULSE 97; RESP 16; TEMP 97.8; O2SAT 100
[2023-03-02] MEDS: K and/or MAG REPLACEMENT MC SCH (08:00)
[2023-03-02] MEDS: nystatin 15 GM powder TP SCH ×2 (08:36→13:00)
[2023-03-02] MEDS: ascorbic acid 500mg tablet PO SCH (08:55)
[2023-03-02] MEDS: ferrous sulfate 325mg tablet PO SCH (08:55)
[2023-03-02] MEDS: pantoprazole 40mg Tablet.DR PO SCH (08:55)
[2023-03-02 10:00] VITALS: BP 111/81; PULSE 86; RESP 18; TEMP 97.3; O2SAT 99
[2023-03-02 15:03] VITALS: RESP 16
== END 2023-03-02 15:37 | DRG 871 ==
LOC: ER 11:18 → ED HOLD 18:08 → PCU 3S 23:00 → ORTHO 4S 02-27 13:35
PROVIDERS: ADMIT Internal Medicine; ATTEND Internal Medicine
PROC: B4201ZZ Computerized Tomography (CT Scan) of Abdominal Aorta using Low Osmolar Contrast (ICD-10-PCS; 2023-02-18)
PROC: B4241ZZ Computerized Tomography (CT Scan) of Superior Mesenteric Artery using Low Osmolar Contrast (ICD-10-PCS; 2023-02-18)
PROC: B4281ZZ Computerized Tomography (CT Scan) of Bilateral Renal Arteries using Low Osmolar Contrast (ICD-10-PCS; 2023-02-18)
PROC: B42C1ZZ Computerized Tomography (CT Scan) of Pelvic Arteries using Low Osmolar Contrast (ICD-10-PCS; 2023-02-18)
PROC: B42H1ZZ Computerized Tomography (CT Scan) of Bilateral Lower Extremity Arteries using Low Osmolar Contrast (ICD-10-PCS; 2023-02-18)
PROC: B4211ZZ Computerized Tomography (CT Scan) of Celiac Artery using Low Osmolar Contrast (ICD-10-PCS; 2023-02-18)
PROC: B42H1ZZ Computerized Tomography (CT Scan) of Bilateral Lower Extremity Arteries using Low Osmolar Contrast (ICD-10-PCS; 2023-02-18)
PROC: 0DB78ZX Excision of Stomach, Pylorus, Via Natural or Artificial Opening Endoscopic, Diagnostic (ICD-10-PCS; principal; 2023-02-21)
PROC: 0DJD8ZZ Inspection of Lower Intestinal Tract, Via Natural or Artificial Opening Endoscopic (ICD-10-PCS; 2023-02-21)
DX: A41.9 Sepsis, unspecified organism (principal); G93.41 Metabolic encephalopathy; K29.71 Gastritis, unspecified, with bleeding; L03.116 Cellulitis of left lower limb; N17.9 Acute kidney failure, unspecified; Z59.00 Homelessness unspecified; L03.032 Cellulitis of left toe; F20.9 Schizophrenia, unspecified; G62.9 Polyneuropathy, unspecified; J44.9 Chronic obstructive pulmonary disease, unspecified; G89.29 Other chronic pain; D50.0 Iron deficiency anemia secondary to blood loss (chronic); K29.80 Duodenitis without bleeding; R35.89 Other polyuria; I10 Essential (primary) hypertension; F10.229 Alcohol dependence with intoxication, unspecified; Y90.2 Blood alcohol level of 40-59 mg/100 ml; M21.379 Foot drop, unspecified foot; T68.XXXA Hypothermia, initial encounter; I25.2 Old myocardial infarction; Z86.711 Personal history of pulmonary embolism; Z85.841 Personal history of malignant neoplasm of brain; Z88.8 Allergy status to other drugs, medicaments and biological substances; Z56.0 Unemployment, unspecified; T51.0X1A Toxic effect of ethanol, accidental (unintentional), initial encounter; Y92.9 Unspecified place or not applicable
CPT/HCPCS: 36415; 43239; 45378; 70450; 71045; 73590; 75635; 80053; 80202; 80305; 80320; 81001; 82140; 82150; 82272; 82550; 82570; 82607; 82728; 82948; 83540; 83550; 83605; 83690; 83735; 83930; 83935; 84100; 84300; 84484; 85025; 85027; 85610; 87040; 87077; 87081; 87186; 93005; 93922; 96365; 96375; 97110; 97116; 97161; 97530; 99152; 99285; A4620; A5200; A6258; C1758; C9113; G0378; J0696; J1750; J1940; J2060; J2250; J2270; J3010; J3370; J3411; J3475; J3490; J7030; J7040; Q9967